=== PATIENT | male | born 1945 | race Caucasian/White ===

== ENCOUNTER → 2016-04-17 | Outpatient (CLI) | payer MEDICARE, BC, OTHER ==
--- NOTE | 2016-04-17 15:01 | REP ---
NUCLEAR GASTRIC EMPTYING SCAN: Following the oral administration of 1.04 mCi technetium 99m sulfur colloid in two scrambled and 6 ounces of water, multiple images of the upper abdomen are performed for 90 minutes in the anterior and posterior projections. Gastric activity is measured, and the gastric emptying time is calculated. At the end of 90 minutes, 100% of the ingested activity has emptied from the stomach. The t1/2 is 35 minutes, which is normal. IMPRESSION: Normal gastric emptying. Signed by Mehul Bingham MD 04/18/2016 09:24 A
== END ==
LOC: M RAD 12:34
PROVIDERS: ATTEND Internal Medicine Gastroenterology
DX: K21.9 Gastro-esophageal reflux disease without esophagitis (principal); R14.0 Abdominal distension (gaseous)
CPT/HCPCS: 78264; A9541

== ENCOUNTER → 2016-07-25 | Outpatient (REF) | payer MEDICARE, BC | LOC: M SFHCPLAZ 11:31 | PROVIDERS: ATTEND Dermatology | DX: L57.0 Actinic keratosis (principal) ==

== ENCOUNTER → 2016-08-23 | Outpatient (REF) | payer MEDICARE, BC, OTHER ==
[2016-08-23 16:31] LABS: ALBUMIN/GLOBULIN RATIO 1.29 (1.00-1.93); ALKALINE PHOSPHATASE 48 U/L (45-117); ALT/SGPT 62 U/L (12-78); ANION GAP 8 MEQ/L (8-16); AST/SGOT 35 U/L (15-37); BILIRUBIN,TOTAL 0.4 MG/DL (0.2-1.0); BLOOD UREA NITROGEN 14 MG/DL (7-18); CALCIUM LEVEL 9.1 MG/DL (8.8-10.2); CARBON DIOXIDE LEVEL 29 MEQ/L (21-32); CHLORIDE LEVEL 100 MEQ/L (98-107); CHOLESTEROL LEVEL 132 MG/DL (<200); GLOMERULAR FILTRATION RATE > 60.0 (>42); GLUCOSE, FASTING 132 MG/DL (83-110); MAGNESIUM LEVEL 2.2 MG/DL (1.8-2.4); POTASSIUM SERUM 4.1 MEQ/L (3.5-5.1); SODIUM LEVEL 137 MEQ/L (136-145); TOTAL PROTEIN 7.1 GM/DL (6.4-8.2); TRIGLYCERIDES LEVEL 192 MG/DL (<150); URIC ACID 7.7 MG/DL (3.5-7.2)
[2016-08-23 16:50] LABS: MEAN CORPUSCULAR HEMOGLOBIN 33.4 pg (27.0-33.0); MEAN CORPUSCULAR HGB CONC 34.4 g/dl (32.0-36.5); RED CELL DISTRIBUTION WIDTH 12.8 % (11.5-14.5); WHITE BLOOD COUNT 5.8 K/mm3 (4.0-10.0)
== END ==
LOC: M SFHCPLAZ 13:26
PROVIDERS: ATTEND Internal Medicine
DX: M19.90 Unspecified osteoarthritis, unspecified site (principal); I10 Essential (primary) hypertension; E11.3291 Type 2 diabetes mellitus with mild nonproliferative diabetic retinopathy without macular edema, right eye; E78.00 Pure hypercholesterolemia, unspecified

== ENCOUNTER → 2016-09-11 | Outpatient (CLI) | payer MEDICARE, BC, OTHER ==
--- NOTE | 2016-09-11 10:54 | REP ---
REASON: Screening for abdominal aortic aneurysm. The technologist has made note in the technical worksheet that the exam is limited due to the patient's body habitus and intestinal gas pattern. The abdominal aorta could not be assessed at the level of the renal arteries due to aforementioned. Multiple sonographic images of the abdominal aorta were obtained from the level of the celiac axis to the aortoiliac bifurcation in the longitudinal and transverse scan plans. The maximal AP dimension of the visualized abdominal aorta in the longitudinal plane is 2.2 cm. There is no aneurysmal dilatation. There is no evidence of common iliac arterial ectasia. IMPRESSION: Exam findings and limitations as described above. There is no ultrasonographic evidence of an abdominal aortic aneurysm. Signed by Richard Saenz DO 09/11/2016 11:01 A
== END ==
LOC: M WHC 08:06
PROVIDERS: ATTEND Internal Medicine
DX: Z13.6 Encounter for screening for cardiovascular disorders (principal)

== ENCOUNTER → 2016-10-04 | Outpatient (CLI) | payer MEDICARE, BC, OTHER ==
--- NOTE | 2016-10-06 15:00 | DEXA ---
AP SPINE L1 - L4 1.643 3.6 3.9 LT FEMUR TOTAL 1.224 1.7 1.7 RT FEMUR TOTAL 1.252 1.9 1.8 TOTAL BODY TOTAL OTHER DUAL FEMUR FRAX* ASSESSMENT Risk factors: Not performed. 10 year probability of fracture Major osteoporotic fracture % Hip fracture % COMMENTS: Normal bone densitometry of the spine. Normal bone densitometry of the left hip. Normal bone densitometry of the right hip. There is degenerative change in the spine which may artificially elevate the BMD. FOLLOW-UP: Recommendation for the next bone density exam: 5 years. RICHD
== END ==
LOC: M WHC 07:52
PROVIDERS: ATTEND Internal Medicine
DX: Z13.820 Encounter for screening for osteoporosis (principal); Z79.899 Other long term (current) drug therapy; K21.9 Gastro-esophageal reflux disease without esophagitis; M50.30 Other cervical disc degeneration, unspecified cervical region; Z72.0 Tobacco use; E53.8 Deficiency of other specified B group vitamins; M54.41 Lumbago with sciatica, right side; Z51.81 Encounter for therapeutic drug level monitoring

== ENCOUNTER → 2017-02-28 | Outpatient (REF) | payer MEDICARE, BC, OTHER ==
[2017-02-28 11:16] LABS: MEAN CORPUSCULAR HEMOGLOBIN 32.5 pg (27.0-33.0); MEAN CORPUSCULAR HGB CONC 33.9 g/dl (32.0-36.5); PLATELET COUNT, AUTOMATED 264 10^3/uL (150-450); RED CELL DISTRIBUTION WIDTH 12.8 % (11.5-14.5); WHITE BLOOD COUNT 4.8 10^3/uL (4.0-10.0)
[2017-02-28 12:04] LABS: ANION GAP 9 MEQ/L (8-16); BLOOD UREA NITROGEN 16 MG/DL (7-18); CALCIUM LEVEL 8.9 MG/DL (8.8-10.2); CARBON DIOXIDE LEVEL 30 MEQ/L (21-32); CHLORIDE LEVEL 101 MEQ/L (98-107); GLOMERULAR FILTRATION RATE > 60.0 (>42); GLUCOSE, FASTING 108 MG/DL (83-110); POTASSIUM SERUM 3.9 MEQ/L (3.5-5.1); SODIUM LEVEL 140 MEQ/L (136-145)
[2017-02-28 12:05] LABS: ALBUMIN 3.8 GM/DL (3.2-5.2); ALBUMIN/GLOBULIN RATIO 1.23 (1.00-1.93); ALKALINE PHOSPHATASE 46 U/L (45-117); ALT/SGPT 44 U/L (12-78); AST/SGOT 32 U/L (7-37); BILIRUBIN,TOTAL 0.5 MG/DL (0.2-1.0); MAGNESIUM LEVEL 2.1 MG/DL (1.8-2.4); TOTAL PROTEIN 6.9 GM/DL (6.4-8.2)
[2017-02-28 12:32] LABS: ESTIMATED AVERAGE GLUCOSE 157 MG/DL (60-110)
== END ==
LOC: M SFHCPLAZ 07:36
DX: Z79.4 Long term (current) use of insulin (principal); E11.3291 Type 2 diabetes mellitus with mild nonproliferative diabetic retinopathy without macular edema, right eye; I10 Essential (primary) hypertension
CPT/HCPCS: 83735

== ENCOUNTER → 2017-07-24 | Outpatient (REF) | payer MEDICARE, BC, OTHER ==
[2017-07-24 14:24] LABS: C REACTIVE PROTEIN QUANTITATIV < 0.30 MG/DL (0.00-0.30); ERYTHROCYTE SEDIMENTATION RATE 3 mm/hr (0-20)
== END ==
LOC: M SFHCPLAZ 12:25
DX: M25.511 Pain in right shoulder (principal); M25.512 Pain in left shoulder
CPT/HCPCS: 86140

== ENCOUNTER → 2017-08-02 | Outpatient (REF) | payer MEDICARE, BC, OTHER ==
[2017-08-02 13:30] LABS: ESTIMATED AVERAGE GLUCOSE 146 MG/DL (60-110); HEMOGLOBIN A1c 6.7 %
[2017-08-02 13:31] LABS: ALBUMIN 3.9 GM/DL (3.2-5.2); ALBUMIN/GLOBULIN RATIO 1.26 (1.00-1.93); ALKALINE PHOSPHATASE 42 U/L (45-117); ALT/SGPT 50 U/L (12-78); ANION GAP 9 MEQ/L (8-16); AST/SGOT 36 U/L (7-37); BILIRUBIN,TOTAL 0.6 MG/DL (0.2-1.0); BLOOD UREA NITROGEN 11 MG/DL (7-18); CALCIUM LEVEL 8.8 MG/DL (8.8-10.2); CARBON DIOXIDE LEVEL 26 MEQ/L (21-32); CHLORIDE LEVEL 103 MEQ/L (98-107); CHOLESTEROL LEVEL 134 MG/DL (<200); CREATININE FOR GFR 0.81 MG/DL (0.70-1.30); GLOMERULAR FILTRATION RATE > 60.0 (>42); GLUCOSE, FASTING 161 MG/DL (70-100); HDL CHOLESTEROL 29 MG/DL (>40); LDL CHOLESTEROL 60.6 MG/DL (<100); NON-HDL-C 105 MG/DL; POTASSIUM SERUM 4.1 MEQ/L (3.5-5.1); SODIUM LEVEL 138 MEQ/L (136-145); TRIGLYCERIDES LEVEL 222 MG/DL (<150)
[2017-08-02 14:32] LABS: CREATININE, URINE 50.1 MG/DL; MALB URINE SIEMENS 6.3 MG/L; MAU/CREAT RATIO 12.5 MCG/MG (0.0-30.0)
== END ==
LOC: M SFHCPLAZ 07:58
DX: E11.3291 Type 2 diabetes mellitus with mild nonproliferative diabetic retinopathy without macular edema, right eye (principal); E78.00 Pure hypercholesterolemia, unspecified; E55.9 Vitamin D deficiency, unspecified; Z79.899 Other long term (current) drug therapy
CPT/HCPCS: 80053

== ENCOUNTER → 2017-08-07 | Outpatient (REF) | payer MEDICARE, BC, OTHER ==
[2017-08-07 13:55] LABS: TESTOSTERONE 431 NG/DL (241-827)
== END ==
LOC: M SFHCPLAZ 10:20
DX: R53.82 Chronic fatigue, unspecified (principal)
CPT/HCPCS: 84403

== ENCOUNTER → 2017-12-18 | Outpatient (REF) | payer MEDICARE, BC, OTHER ==
[2017-12-18 16:05] LABS: PSA SCREENING 1.79 NG/ML (< 4.0)
== END ==
LOC: M SFHCPLAZ 14:21
DX: Z12.5 Encounter for screening for malignant neoplasm of prostate (principal); Z23 Encounter for immunization
CPT/HCPCS: G0103

== ENCOUNTER → 2018-04-01 | Outpatient (CLI) | payer MEDICARE, BC, OTHER ==
--- NOTE | 2018-04-11 06:23 | REP ---
Clinical: Postprandial epigastric pain. Technique: Real time root scale and color Doppler evaluation of the celiac axis and superior mesenteric artery pre and post meal challenge. Findings: Doppler interrogation at fasting prior to meal challenge demonstrates normal triphasic arterial wave patterns and velocities of the celiac axis and superior mesenteric artery (SMA). Further evaluation of the superior mesenteric artery and multiple intervals after challenge again demonstrates normal biphasic arterial wave patterns and velocities. There is no evidence for stenosis or obvious abnormality by radiographic sonographic evaluation. CELIAC AXIS SMA (prox) SMA (mid) BASE LINE psv 127.3 cm/sec 174 cm/sec 192.5 cm/sec edv 31.0 cm/sec 22.6 cm/sec 25.5 cm/sec POST CHALLENGE 10 minutes PSV 237.9 cm/sec 326.2 cm/sec EDV 39.9 cm/sec 44.0 cm/sec 20 minutes PSV 250.9 cm/sec 430.1 cm/sec EDV 44.0 cm/sec 71.3 cm/sec 30 minutes PSV 230.8 cm/sec 321.6 cm/sec EDV 36.2 cm/sec 39.6 cm/sec 40 minutes PSV 212.0 cm/sec 293.3 cm/sec EDV 41.0 cm/sec 67.9 cm/sec Impression: Normal examination. No evidence for postprandial SMA stenosis. Electronically Signed by Drake Mills MD 04/11/2018 06:14 A
== END ==
LOC: M RAD 07:20
PROVIDERS: ATTEND Internal Medicine Gastroenterology
DX: R10.13 Epigastric pain (principal); K27.9 Peptic ulcer, site unspecified, unspecified as acute or chronic, without hemorrhage or perforation

== ENCOUNTER → 2018-04-23 | Outpatient (REF) | payer MEDICARE, BC, OTHER ==
[2018-04-23 12:27] LABS: BASO # 0.1 10^3/uL (0.0-0.2); BASO % 1.1 % (0.0-1.0); EOS # 0.2 10^3/uL (0.0-0.50); EOS % 3.8 % (0.0-3.0); HEMATOCRIT 41.7 % (42.0-52.0); HEMOGLOBIN 14.2 g/dl (13.5-17.5); LYMPH # 1.8 10^3/uL (1.5-4.5); LYMPH % 33.3 % (24.0-44.0); MEAN CORPUSCULAR HEMOGLOBIN 32.9 pg (27.0-33.0); MEAN CORPUSCULAR HGB CONC 34.1 g/dl (32.0-36.5); MEAN CORPUSCULAR VOLUME 96.8 fl (80.0-96.0); MONO # 0.6 10^3/uL (0.0-0.8); MONO % 11.2 % (0.0-5.0); NEUTROPHILS # 2.7 10^3/uL (1.8-7.7); NEUTROPHILS % 50.1 % (36.0-66.0); PLATELET COUNT, AUTOMATED 312 10^3/uL (150-450); RED BLOOD COUNT 4.31 10^6/uL (4.30-6.10); WHITE BLOOD COUNT 5.5 10^3/uL (4.0-10.0)
[2018-04-23 12:41] LABS: ALBUMIN 4.3 GM/DL (3.2-5.2); ALT/SGPT 45 U/L (12-78); BILIRUBIN,TOTAL 0.5 MG/DL (0.2-1.0); BLOOD UREA NITROGEN 8 MG/DL (7-18); C REACTIVE PROTEIN QUANTITATIV < 0.30 MG/DL (0.00-0.30); CALCIUM LEVEL 9.1 MG/DL (8.8-10.2); CARBON DIOXIDE LEVEL 26 MEQ/L (21-32); CHLORIDE LEVEL 97 MEQ/L (98-107); CHOLESTEROL LEVEL 108 MG/DL (<200); CREATININE FOR GFR 0.72 MG/DL (0.70-1.30); GLOMERULAR FILTRATION RATE > 60.0 (>42); GLUCOSE, FASTING 152 MG/DL (70-100); HDL CHOLESTEROL 25 MG/DL (>40); LDL CHOLESTEROL 28 MG/DL (<100); MAGNESIUM LEVEL 1.9 MG/DL (1.8-2.4); NON-HDL-C 83 MG/DL; SODIUM LEVEL 134 MEQ/L (136-145); TOTAL PROTEIN 7.2 GM/DL (6.4-8.2); TRIGLYCERIDES LEVEL 276 MG/DL (<150)
[2018-04-23 12:46] LABS: CREATININE, URINE 52.3 MG/DL; MALB URINE SIEMENS 7.5 MG/L; MAU/CREAT RATIO 14.3 MCG/MG (0.0-30.0)
[2018-04-23 13:07] LABS: HEMOGLOBIN A1c 7.8 %
[2018-04-23 13:25] LABS: ERYTHROCYTE SEDIMENTATION RATE 5 mm/hr (0-20)
== END ==
LOC: M SFHCPLAZ 08:23
PROVIDERS: ATTEND Internal Medicine
DX: E11.69 Type 2 diabetes mellitus with other specified complication (principal); I10 Essential (primary) hypertension; E78.00 Pure hypercholesterolemia, unspecified; M19.90 Unspecified osteoarthritis, unspecified site; Z79.4 Long term (current) use of insulin
CPT/HCPCS: 36415; 80053; 80061; 82043; 83036; 83735; 85025; 85652; 86140; G0463

== ENCOUNTER → 2018-05-22 | Outpatient (REF) | payer MEDICARE, BC, OTHER ==
[2018-05-22 12:53] LABS: APPEARANCE, URINE CLEAR (CLEAR); BACTERIA, URINE AUTO NEGATIVE (NEGATIVE); BILIRUBIN, URINE AUTO NEGATIVE (NEGATIVE); BLOOD, URINE BLOOD NEGATIVE (NEGATIVE); COLOR, URINE YELLOW (YELLOW); GLUCOSE, URINE (UA) AUTO 1+ mg/dL (NEGATIVE); KETONE, URINE AUTO NEGATIVE (NEGATIVE); LEUKOCYTE ESTERASE, URINE AUTO NEGATIVE (NEGATIVE); MUCUS, URINE SMALL (NEGATIVE); NITRITE, URINE AUTO NEGATIVE (NEGATIVE); PROTEIN, URINE AUTO NEGATIVE (NEGATIVE); RBC, URINE AUTO 1 /HPF (0-3); SPECIFIC GRAVITY URINE AUTO 1.017 (1.002-1.035); SQUAMOUS EPITHELIAL CELL UR AU 0 /HPF (0-6); UROBILINOGEN, URINE AUTO 0.2 mg/dL (0.0-2.0); WBC, URINE AUTO 1 /HPF (0-3)
== END ==
LOC: M SFHCPLAZ 12:08
PROVIDERS: ATTEND Internal Medicine
DX: R30.0 Dysuria (principal)
CPT/HCPCS: 81001; 87086; G0463

== ENCOUNTER → 2018-09-03 | Outpatient (REF) | payer MEDICARE, BC, OTHER ==
[2018-09-03 12:15] LABS: ALT/SGPT 59 U/L (12-78); BILIRUBIN,TOTAL 0.5 MG/DL (0.2-1.0); BLOOD UREA NITROGEN 9 MG/DL (7-18); CALCIUM LEVEL 8.3 MG/DL (8.8-10.2); CARBON DIOXIDE LEVEL 27 MEQ/L (21-32); CHLORIDE LEVEL 97 MEQ/L (98-107); CHOLESTEROL LEVEL 99 MG/DL (<200); CHOLESTEROL RISK RATIO 3.413 (<5); CREATININE FOR GFR 0.82 MG/DL (0.70-1.30); GLOMERULAR FILTRATION RATE > 60.0 (>42); GLUCOSE, FASTING 194 MG/DL (70-100); HDL CHOLESTEROL 29 MG/DL (>40); LDL CHOLESTEROL 32 MG/DL (<100); MAGNESIUM LEVEL 2.2 MG/DL (1.8-2.4); NON-HDL-C 70 MG/DL; POTASSIUM SERUM 3.9 MEQ/L (3.5-5.1); SODIUM LEVEL 132 MEQ/L (136-145); TOTAL 25(OH) VITAMIN D 30.2 NG/ML (30.0-100.0); TOTAL PROTEIN 7.1 GM/DL (6.4-8.2); TRIGLYCERIDES LEVEL 189 MG/DL (<150)
[2018-09-03 13:31] LABS: HEMOGLOBIN A1c 7.2 %
== END ==
LOC: M LABDRAW1 08:11
PROVIDERS: ATTEND Internal Medicine
DX: I10 Essential (primary) hypertension (principal); E11.69 Type 2 diabetes mellitus with other specified complication; E78.00 Pure hypercholesterolemia, unspecified; E55.9 Vitamin D deficiency, unspecified

== ENCOUNTER → 2018-10-14 | Outpatient (REF) | payer MEDICARE, BC, OTHER ==
[2018-10-14 16:24] LABS: BLOOD UREA NITROGEN 10 MG/DL (7-18); CALCIUM LEVEL 8.4 MG/DL (8.8-10.2); CARBON DIOXIDE LEVEL 28 MEQ/L (21-32); CHLORIDE LEVEL 100 MEQ/L (98-107); CREATININE FOR GFR 1.05 MG/DL (0.70-1.30); GLOMERULAR FILTRATION RATE > 60.0 (>42); GLUCOSE, FASTING 138 MG/DL (70-100); POTASSIUM SERUM 3.8 MEQ/L (3.5-5.1); SODIUM LEVEL 136 MEQ/L (136-145)
== END ==
LOC: M LABDRAW1 13:33
PROVIDERS: ATTEND Internal Medicine
DX: I10 Essential (primary) hypertension (principal)

== ENCOUNTER → 2019-04-17 | Outpatient (REF) | payer MEDICARE, BC, OTHER | LOC: M LAB REF 13:08 | PROVIDERS: ATTEND Internal Medicine | DX: R19.7 Diarrhea, unspecified (principal) ==

== ENCOUNTER → 2019-05-14 | Outpatient (REF) | payer MEDICARE, BC, OTHER ==
[2019-05-14 10:31] LABS: BLOOD UREA NITROGEN 14 MG/DL (7-18); CALCIUM LEVEL 8.6 MG/DL (8.8-10.2); CARBON DIOXIDE LEVEL 27 MEQ/L (21-32); CHLORIDE LEVEL 98 MEQ/L (98-107); CREATININE FOR GFR 1.01 MG/DL (0.70-1.30); GLOMERULAR FILTRATION RATE > 60.0 (>42); GLUCOSE, FASTING 249 MG/DL (70-100); POTASSIUM SERUM 3.9 MEQ/L (3.5-5.1); SODIUM LEVEL 132 MEQ/L (136-145)
== END ==
LOC: M LABDRAW1 08:25
PROVIDERS: ATTEND Internal Medicine Gastroenterology
DX: R10.13 Epigastric pain (principal); K59.1 Functional diarrhea

== ENCOUNTER → 2019-05-20 | Outpatient (CLI) | payer MEDICARE, BC, OTHER ==
[~2019-05-20] MED LIST: GASTROGRAFIN SOLUTION 30ML (Q9963) As Ordered ONE; ISOVUE-370 76% 100ML VIAL (Q9967) As Ordered ONE
--- NOTE | 2019-05-20 15:52 | REP ---
REASON: Abdominal pain. COMPARISON: None. CONTRAST: 100 mL Isovue 370. The lung bases are clear. Precontrast enhanced portion of the examination shows bilateral renovascular calcifications. There are no obstructing nephroliths. There are no choleliths. There is calcific atherosclerotic change seen in the abdominal aorta. The contrast enhanced portion of the examination shows the liver, spleen, gallbladder, pancreas, adrenal glands, and kidneys to be within normal limits. The abdominal aorta and paraaortic regions are within normal limits. The bowel loops and their mesenteries are within normal limits. There is no intra-abdominal or retroperitoneal mass or adenopathy. There is no free fluid or free air. CT PELVIS: The bowel loops and their mesenteries are within normal limits. There is no mass or adenopathy. There is no free fluid or free air. Bone window technique throughout the examination shows chronic spinal and sacroiliac joint degenerative changes. IMPRESSION: There is no evidence of acute intra-abdominal or intrapelvic disease. Findings as described above. Electronically Signed by Richard Saenz DO 05/20/2019 04:34 P
== END ==
LOC: M RAD 12:57
PROVIDERS: ATTEND Internal Medicine Gastroenterology
DX: R10.13 Epigastric pain (principal); K59.1 Functional diarrhea
CPT/HCPCS: 74178; Q9963; Q9967

== ENCOUNTER → 2019-11-12 | Outpatient (CLI) | payer MEDICARE, BC, OTHER ==
[2019-11-12 14:06] LABS: BASO # 0.1 10^3/uL (0.0-0.2); BASO % 0.9 % (0.0-1.0); EOS # 0.2 10^3/uL (0.0-0.5); EOS % 3.7 % (0.0-3.0); HEMATOCRIT 38.6 % (42.0-52.0); HEMOGLOBIN 12.6 g/dl (13.5-17.5); LYMPH # 1.5 10^3/uL (1.5-5.0); LYMPH % 28.1 % (24.0-44.0); MEAN CORPUSCULAR HEMOGLOBIN 32.1 pg (27.0-33.0); MEAN CORPUSCULAR HGB CONC 32.6 g/dl (32.0-36.5); MEAN CORPUSCULAR VOLUME 98.2 fl (80.0-96.0); MONO # 0.6 10^3/uL (0.0-0.8); MONO % 11.2 % (0.0-5.0); NEUTROPHILS % 55.7 % (36.0-66.0); PLATELET COUNT, AUTOMATED 314 10^3/uL (150-450); RED BLOOD COUNT 3.93 10^6/uL (4.30-6.10); WHITE BLOOD COUNT 5.5 10^3/uL (4.0-10.0)
[2019-11-12 14:30] LABS: HEMOGLOBIN A1c 6.2 %
[2019-11-12 14:46] LABS: ALBUMIN 4.1 GM/DL (3.2-5.2); ALT/SGPT 46 U/L (12-78); BILIRUBIN,TOTAL 0.4 MG/DL (0.2-1.0); BLOOD UREA NITROGEN 9 MG/DL (7-18); CALCIUM LEVEL 8.9 MG/DL (8.8-10.2); CARBON DIOXIDE LEVEL 29 MEQ/L (21-32); CHLORIDE LEVEL 95 MEQ/L (98-107); CHOLESTEROL LEVEL 97 MG/DL (<200); CHOLESTEROL RISK RATIO 3.233 (<5); CREATININE FOR GFR 0.75 MG/DL (0.70-1.30); GLOMERULAR FILTRATION RATE > 60.0 (>42); GLUCOSE, FASTING 55 MG/DL (70-100); HDL CHOLESTEROL 30 MG/DL (>40); LDL CHOLESTEROL 28 MG/DL (<100); NON-HDL-C 67 MG/DL; POTASSIUM SERUM 4.3 MEQ/L (3.5-5.1); SODIUM LEVEL 128 MEQ/L (136-145); TOTAL PROTEIN 7.3 GM/DL (6.4-8.2); TRIGLYCERIDES LEVEL 196 MG/DL (<150)
[2019-11-12 15:02] LABS: ERYTHROCYTE SEDIMENTATION RATE 7 mm/hr (0-20)
[2019-11-12 20:14] LABS: CREATININE, URINE 71.7 MG/DL; MALB URINE SIEMENS 5.2 MG/L; MAU/CREAT RATIO 7.2 MCG/MG (0.0-30.0)
== END ==
LOC: M PLALAB 12:33
PROVIDERS: ATTEND Internal Medicine
DX: E11.69 Type 2 diabetes mellitus with other specified complication (principal); I10 Essential (primary) hypertension; E78.00 Pure hypercholesterolemia, unspecified; M19.90 Unspecified osteoarthritis, unspecified site

== ENCOUNTER → 2019-12-15 | Outpatient (CLI) | payer MEDICARE, BC, OTHER ==
[~2019-12-15] MED LIST changes: -GASTROGRAFIN SOLUTION 30ML (Q9963) As Ordered ONE; -ISOVUE-370 76% 100ML VIAL (Q9967) As Ordered ONE; +PROHANCE 279.3MG/ML 15ML VIAL As Ordered ONE; +PROHANCE 279.3MG/ML 5ML VIAL As Ordered ONE
--- NOTE | 2019-12-15 14:39 | REPVR ---
PROCEDURE INFORMATION: Exam: MR Head Without and With Contrast; Internal Auditory Canals Exam date and time: 12/15/2019 12:51 PM Age: 74 years old Clinical indication: Other: Hearing loss; Patient HX: Limited exam, best PT can do, repeatedly asked to remain still. ; Additional info: H90.3-sensorineural hearing loss, bilateral TECHNIQUE: Imaging protocol: MR of the head without and with intravenous contrast. Exam focused on the internal auditory canals. 3D rendering (Not supervised by radiologist): MIP and/or 3D reconstructed images were created by the technologist. Contrast material: PROHANCE; Contrast volume: 16 ml; Contrast route: INTRAVENOUS (IV); COMPARISON: SR - CT Head without contrast 12/23/2015 5:56:50 PM FINDINGS: Limitations: Motion artifact does severely limit the sensitivity of this examination. Brain: There is no abnormal diffusion weighted signal intensity to suggest an acute ischemic event. There is moderate diffuse cerebral atrophy present. Ventricles: No ventriculomegaly. Mastoid air cells: Unremarkable. No effusions. Internal auditory canals: The left internal auditory canal is adequately seen on 1.5 mm heavy T2 weighted axial image 701:35 through the posterior fossa. The right canal is poorly seen on axial image 31 and the possibility of bony overgrowth could be considered but is not obvious on a [address] study performed 4 years ago. There is no obvious nodular mass in the adjacent cistern. Other vasculature: Normal vascular flow voids are present. Bones/joints: See "Internal auditory canals" finding. Other findings: There are no regions of abnormal enhancement. IMPRESSION: 1. Motion artifact does severely limit the sensitivity of this examination. 2. There are no regions of abnormal enhancement. 3. The left internal auditory canal is adequately seen on 1.5 mm heavy T2 weighted axial image 701:35 through the posterior fossa. The right canal is poorly seen on axial image 31 and the possibility of bony overgrowth could be considered but is not obvious on a [address] study performed 4 years ago. There is no obvious nodular mass in the adjacent cistern. Electronically signed by: Mitch Ware On 12/15/2019 14:39:11 PM
== END ==
LOC: M RAD 12:48
PROVIDERS: ATTEND Otolaryngology
DX: H90.3 Sensorineural hearing loss, bilateral (principal)
CPT/HCPCS: 70553; A9576

== ENCOUNTER → 2020-02-06 | Outpatient (REF) | payer MEDICARE, BC, OTHER ==
[2020-02-06 11:16] LABS: BASO # 0.1 10^3/uL (0.0-0.2); BASO % 1.2 % (0.0-1.0); EOS # 0.2 10^3/uL (0.0-0.5); EOS % 5.5 % (0.0-3.0); HEMATOCRIT 36.7 % (42.0-52.0); HEMOGLOBIN 11.4 g/dl (13.5-17.5); LYMPH # 1.3 10^3/uL (1.5-5.0); MEAN CORPUSCULAR HEMOGLOBIN 29.6 pg (27.0-33.0); MEAN CORPUSCULAR HGB CONC 31.1 g/dl (32.0-36.5); MEAN CORPUSCULAR VOLUME 95.3 fl (80.0-96.0); MONO # 0.6 10^3/uL (0.0-0.8); MONO % 12.7 % (0.0-5.0); NEUTROPHILS # 2.2 10^3/uL (1.5-8.5); NEUTROPHILS % 50.1 % (36.0-66.0); PLATELET COUNT, AUTOMATED 294 10^3/uL (150-450); RED BLOOD COUNT 3.85 10^6/uL (4.30-6.10); WHITE BLOOD COUNT 4.3 10^3/uL (4.0-10.0)
[2020-02-06 11:56] LABS: ALBUMIN 3.9 GM/DL (3.2-5.2); ALT/SGPT 50 U/L (12-78); BILIRUBIN,TOTAL 0.5 MG/DL (0.2-1.0); BLOOD UREA NITROGEN 13 MG/DL (7-18); CALCIUM LEVEL 9.1 MG/DL (8.8-10.2); CARBON DIOXIDE LEVEL 28 MEQ/L (21-32); CHLORIDE LEVEL 96 MEQ/L (98-107); CREATININE FOR GFR 0.93 MG/DL (0.70-1.30); GLOMERULAR FILTRATION RATE > 60.0 (>42); GLUCOSE, FASTING 240 MG/DL (70-100); MAGNESIUM LEVEL 1.8 MG/DL (1.8-2.4); POTASSIUM SERUM 4.9 MEQ/L (3.5-5.1); SODIUM LEVEL 130 MEQ/L (136-145); TOTAL PROTEIN 7.2 GM/DL (6.4-8.2)
[2020-02-06 12:17] LABS: HEMOGLOBIN A1c 6.5 %
[2020-02-07 18:06] LABS: TESTOSTERONE FREE (DIRECT) 5.8 pg/mL (6.6-18.1)
== END ==
LOC: M PLALAB 09:01
PROVIDERS: ATTEND Internal Medicine
DX: R53.82 Chronic fatigue, unspecified (principal); I10 Essential (primary) hypertension; E11.69 Type 2 diabetes mellitus with other specified complication; N52.9 Male erectile dysfunction, unspecified

== ENCOUNTER → 2020-02-10 | Outpatient (CLI) | payer SELFPAY | LOC: M LABSMTC 15:29 | PROVIDERS: ATTEND Pediatrics | DX: Z11.59 Encounter for screening for other viral diseases (principal) ==

== ENCOUNTER 2020-03-23 11:39 | Emergency (ER) | payer MEDICARE, BC, OTHER ==
--- OUTSIDE RECORDS SUMMARY | 2020-03-23 11:55 | CCD ---
Author Author [email or web address] [facility] Organization [email or web address] [facility] Address Unknown Phone Unavailable Care Team Providers Care Club Room Attendant Name Role Phone Bernard Cam Unavailable PROBLEMS Type Condition ICD9-CM Code [id number] Code Onset Dates Condition S tatus SNOMED Code Notes Problem Lesion of lung R91.1 Active 574170957 3.6mm l radha nodule seen on CT in 04/2012. He sees pulmonology, had normal PFT's in 05/2012. He had had another CT of chest 05/2013 which was stable and there were no recommendations for a repeat study. Problem Coronary artery disease I25.10 Active [id number] He had three-vessel disease diagnosed after an abnormal stress test for dyspnea on exertion, back in May 2011. Left ventricular ejection fraction was 62% in February 2018 at his radionuclide stress test, 55% at cardiac catheterization 06/2012 (patent circumflex stents, occluded RCA, 60% LAD disease). The patient has no angina at present. He is currently on ARB, beta saeed, Plavix, aspirin and statin therapy. His blanket winder helper has recommended lifelong Plavix. Problem Anxiety disorder F41.9 Active [id number] Has p eriodic anxiety possibly related to [place] experience. [facility] the [facility] and I believe he has used prn alprazolam in the past. It is not on his list today. In April 2011 I tried Cymbalta but I do not believe he continued that. He restarted as of 08/2013 but did not maintain that therapy. He tried CBD oil but it was of no benefit. He was started on citalopram and was offered Ritalin as of mid August 2018; he is on citalopram alone and is seeing a psychiatrist. I increased his citalopram to 20 mg daily in September 2018. Problem Gastroesophageal reflux disease K21.9 Active [id number] He has been on Dexilant since about January 2019. He was previously on Protonix (selena) in the past, taken daily, and there was no benefit to twice daily therapy. Patient had ongoing discomfort in that he has ongoing postprandial discomfort only partially relieved with Gaviscon. Carafate was of no benefit. He had his most recent endoscopy in April 2018 which showed some reactive gastropathy. He had a normal gastric emptying study in 2016. His lobbyist switched him from Protonix to Zegerid in early 2018 and this was of no benefit. A Doppler ultrasound of his mesenteric arteries in April 2018 was not revealing for significant stenosis. Problem Lumbar spinal stenosis M48.06 Active 26025352 He apparently had a confirmatory MRI in about 2013 at [facility]. He has ongoing issues. He no longer receives physical therapy. He is on gabapentin 600/600/1200 mg on a 3 times a day schedule. Problem History of adenomatous polyp of colon Z86.010 Ac tive [id number] He had an adenomatous polyp in March 2014 and probably needs a follow-up in 2019. Problem Neuropathic arthritis M14.60 Active 31139719 H e has neuropathic symptoms of his hands and feet. This may relate to his diabetes or to his arthritic syndrome. He apparently has tried Lyrica in the past, and nortriptyline caused urinary retention. We did try Lamictal in Summer 2016 but he did not maintain that therapy. He is taking gabapentin 600/600/1200 mg on a 3 times a day schedule. He tried CBD oil with no benefit. Tramadol was initiated as of April 2018 but it was not of benefit. It appears that citalopram, started in August 2018, may have palliated some of his discomforts. Problem Memory deficit R41.3 Active [id number] He has been evaluated for memory loss by a neurologist in 2013. His serologic evaluation was negative. I am not an advocate of Namenda or Aricept. He is apparently taking vitamin B12 supplementation despite a normal level in Fall 2013. 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 Problem Hypercholesterolemia E78.00 Active [id number] On Crestor instead of Lipitor as of 2017 (concerns about myalgias on Lipitor resulted in that switch but it made no difference) and Lovaza therapy . Lipids are controlled with medications as of November 2019. Problem Chronic fatigue R53.82 Active 17057115 TSH and testosterone level were normal in August 2017 and again in February 2020, although his free testosterone level was a bit low. We will try supplementation as of February 2020. Problem Type 2 diabetes mellitus with other specified complication E11.69 Active 61225877 On metformin, Lantus 40 unit s daily, sliding scale insulin therapy which is usually dosed at 6-8 units 3 times a day. Amaryl, Victoza (substituted for Byetta in August 2009) stopped in late 2010. Last HgbA1c was 6.5% in February 2020, 6.2% in November 2019, [facility], 7.2% in September 2018, 7.8% in April 2018, 7[facility]. His urine microalbumin was negative in November 2019; he is on an ARB nevertheless. There is some stable diabetic retinopathy bilaterally. His last eye exam that I have record of was in December 2017. Last LE sensory examination was in August 2017 and he had electrodiagnostics in early 2013. I attempted to add Jardiance to his regimen in hopes to facilitate some weight loss and to reduce his insulin requirements but his insurance company has denied that apparently. He has a diabetic neuropathy. Problem Repetitive rocking movements F98.4 Active 301 77128 I've asked for neurology consultation. Problem Inflammatory arthritis M19.90 Active 3517585 H dimitris has an inflammatory arthritis primarily affecting his right hand greater than left, and he also has knee and low back pain as well as various other arthralgias. He has had rheumatologic consultations dating back to 2011 through 2013 and was tried on Plaquenil, Arava, methotrexate but did not maintain these medications. He is diabetic and prednisone could not be used long-term. He tried meloxicam no nsteroidal anti-inflammatory drug therapy in February 2016, despite his history of GI issues, because he is protected with his PPI therapy; it did not provide benefit. Topical Voltarin gel therapy has not been terribly beneficial. He was tried on Plaquenil again in about 2015 or 2016. His serological markers are negative and I did offer him Humira therapy again in February 2016 but he decided not to complicate his medical regimen. We also tried Relafen as of August 2016 and he did not find that to be of benefit. Topical Aspercreme with lidocaine and/ or Voltaren gel for his hand and knee arthritis were recommended in the past without benefit. Tramadol was initiated as of April 2018 but he found no benefit. Inflammatory markers were negative as of April 2018 and again in November 2019. He is on gabapentin. Problem Hypertension I10 Active 58155050 On losarta n, chlorthalidone, spironolactone 3 times a week, and metoprolol. Has no endorgan complications. Blood pressure is optimally controlled by his report of home readings. He had a cough from lisinopril in September 2016. I added spironolactone as of September 2018. Problem Anemia, unspecified type D64.9 Active 5721190 00 He has what appears to be iron deficiency anemia. He will start iron supplementation. I will recheck his labs in March 2020. 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 Had a prostate/rectal examination in November 2017 with the colorectal surgeon I believe, and a colonoscopy in 2012, March 2014 with that provider. Because of his iron deficiency needs a follow-up colonoscopy. Problem Vitamin D deficiency E55.9 Active [id number] Dukes d a level of 15 in 2011--and was on Drisdol for a period of time. A followup level was 24 in February 2015 and he started awen-kkz-vccatuo supplementation with 2000 units daily. His most recent vitamin D level was 39 at the [place] in December 2018. Problem Erectile dysfunction, unspecified erectile dysfunction typ e N52.9 Active 170520678 He failed PDE-5 inhibitors s o we again recommended MUSE as of April 2018. Apparently Caverject was tried in the past... I started testosterone supplementation with PDE 5 inhibitor supplementation as of February 2020. Problem Dysthymia F34.1 Active 81964618 He has signif icant depression. He is currently on citalopram as of August 2018 and increased the dose to 20 mg daily as of September 2018. He is also seeing a psychiatrist as of August 2018. Problem Lumbago with sciatica, right side M54.41 Active 353077060 Problem Other chronic pain G89.29 Active 83123970 ALLERGIES No Known Allergies ENCOUNTERS from 1945 to 2020-03-17 Encounter Location Date Provider Diagnosis [address] [address] Mar, Bernard Cam Erectile dysfunction, unspecified erecti le dysfunction type N52.9 IMMUNIZATIONS Vaccine Route Administration Date Status Influenza (High Dose 65 & up) Unknown Nov 22, 2017 Ad ministered Influenza (High Dose 65 & up) Unknown Jan 10, 2017 Ad ministered Influenza (High Dose 65 & up) IM Intramuscular Dec 29, 2015 A dministered Influenza (High Dose 65 & up) IM Intramuscular Dec 21, 2014 A dministered Zoster 0.65mL (Zostavax) Unknown Mar 05, 2006 Adminis tered Pneumococcal Adult 0.5mL (Pneumovax 23) Unknown Dec 13, 2011 Administered Zoster 50mcg/0.5mL (Shingrix) Unknown October 01, 2017 Ad ministered TDAP Unknown Feb 03, 2004 Administered Zoster 50mcg/0.5mL (Shingrix) IM Intramuscular Dec 18, 2017 A dministered Pneumococcal 0.5mL (Prevnar 13) IM Intramuscular Feb 15, 2016 Administered TD Adult 0.5mL (Tetanus) Unknown Jan 04, 2004 Adminis tered SOCIAL HISTORY Tobacco Use: Social History Observation Description Date Details (start date - stop date) Former Smoker Sex Assigned At : Social History Observation Description Sex Assigned At Male Education: Question Answer Notes Level of Education: Finished High School Audit Question Answer Notes Total Score: 2 Interpretation: Alcohol Education Domestic Violence: Question Answer Notes Status: Sexual Hx: Question Answer Notes Had sex in the last 12 months (vaginal, oral, or anal)? Yes Have you ever had an STD? No with Women only Drug and Alcohol Question Answer Notes Total Score: 0 Interpretation: No problems reported Alcohol Screening: Question Answer Notes Did you have a drink containing alcohol in the past year? Ye s Points 2 Interpretation Negative How often did you have six or more drinks on one occas ion in the past year? Never (0 points) How many drinks did you have on a typica l day when you were drinking in the past year? 1 or 2 (0 points) How often did you have a drink containing alcohol in t he past year? Two to four times a month (2 points) BMI Care Goal Follow-Up Question Answer Notes Above Normal BMI Follow-Up Weight monitoring Tobacco Use: Question Answer Notes Are you a: former smoker How long has it been since you last smoked? 1-5 years REASON FOR REFERRAL No Information VITAL SIGNS No information MEDICATIONS Medication SIG (Take, Route, Frequency, Duration) Notes Start Da te End Date Status Blood Glucose Test - Accucheck test strips In Vitro 3-4 times a day Active MiraLax 1 packet 1 packet mixed with 8 ounces of fluid Orally Once a day Active Gaviscon 80-14.2 MG 2 tablets after meals and at bedtime as needed Orally as directed Active Lancets - Accu check multiclick lancets 3-4 times a day Active Magnesium 400 MG 1 tab(s) Orally daily for 90 day(s) Active Lantus SoloStar 100 UNIT/ML 40 units Subcutaneous Once daily for 90 day(s) Jun, Active Citalopram Hydrobromide 20 MG 1 tablet Orally Once a day in the AM Aug, Active Hydrocodone-Acetaminophen 5-325 MG 1 tablet Orally thuan ry 6 hrs as needed for neck pain for 7 days Dec, Active NovoLog Flexpen 100 UNIT/ML Per sliding scale Subcutaneous as needed Active Aspirin 81 MG 1 tablet Orally Once a day Active Pen [place] 1/2" 29G X 12MM bd needles DX: E11.9 Four times daily with insulin for 50 Active Dexilant 60 MG 1 capsule Orally Once a day for 90 day(s) Active Docusate Sodium 250 MG 1 capsule as needed Orally Once a day Active Spironolactone 25 MG 1/2 tablet Orally Every Sun/Sun/Sun for 90 day(s) Sep, Active Vitamin D 2000 UNIT one capsule Orally daily Feb, Active Metformin HCl 1000 MG 1 tablet with meals Orally Twice a day for 90 d ays Active Plavix 75 mg 1 tablet Orally Once a day for 90 days Active Lovaza 1GM 2 capsules Orally Twice a day for 90 Active AndroGel 20.25 MG/1.25GM (1.62%) 1 packet to skin in t he morning to shoulder and upper arms Transdermal Once a day, MDD=1.25GM for 30 days Feb Active Gabapentin 600 MG as directed Orally 1 tablet twice daily during daytime hours and 2 tablets at night Active Chlorthalidone 25 MG 1/2 tablet in the morning Orally Once a day for 90 day(s) Active Losartan Potassium 100 MG 1 tablet Orally Once a day for 30 Active Tylenol 8 Hour 650 MG 2 tablets as needed Orally bedtime Active Crestor 20 MG 1 tablet Orally Once a day July, Active Nitroglycerin 0.4 MG 1 tablet under the tongue an d allow to dissolve Sublingual 1 tab every 5 minutes for 3 doses as needed for chest pain for 30 day(s) Active Tamsulosin HCl 0.4 MG 1 capsule Orally Once a day for 90 day(s) May, Not-Taking Super B Complex _ 1 cap orally Daily Active Vitamin B12 1000 MCG 1 tablet Orally Once a day Feb, Active Halobetasol Propionate 0.05 % 1 application to affecte d area on arms Externally Once a day for 30 day(s) July, Not-Zach ing Sildenafil Citrate 100 MG One half to one tablet As ne eded Once a day as needed for 30 day(s) Feb, Active Metoprolol Succinate 25 MG 1 tablet Orally Once a day for 90 days Active ProAir HFA 108 (90 Base) MCG/ACT 2 puffs Inhalation ev patricia 4 hrs as needed for cough/wheeze/SOB for 30 day(s) Sep, N ot-Taking Fluticasone Propionate 50 MCG/DOSE 2sprays in each nostril Nasal ly Once a day Active PROCEDURES No Information RESULTS No Results REASON FOR VISIT testosterone MEDICAL (GENERAL) HISTORY Type Description Date Medical History Coronary artery disease Medical History Type 2 diabetes mellitus with other spec ified complication Medical History Gastroesophageal reflux disease Medical History Hypertension Medical History Hemorrhoids Medical History Anxiety disorder Medical History Hypercholesterolemia Medical History Lesion of lung Medical History Vitamin D deficiency Medical History Lumbar spinal stenosis Medical History Memory deficit Medical History Neuropathic arthritis Medical History 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 of 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 Medical History Inflammatory arthritis Medical History History of adenomatous polyp of colon Medical History Chronic fatigue Surgical History tonsillectomy Surgical History bilateral rotator cuff right 2002, left 2009 Surgical History colonoscopy 04/2003 Surgical History anal fissure 12/2005 Surgical History cardiac stents 05/2011 Surgical History Colonoscopy 01/2013 Goals Section No Information Health Concerns No Information MEDICAL EQUIPMENT No Information MENTAL STATUS No Information FUNCTIONAL STATUS No Information ASSESSMENTS Encounter Date Diagnosis Assessment Notes Treatment Notes Treatm ent Clinical Notes Mar, Erectile dysfunction, unspec ified erectile dysfunction type (ICD-10 - N52.9) PLAN OF TREATMENT Medication Medication Name Sig Start Date Stop Date AndroGel 20.25 MG/1.25GM (1.62%) 1 packet to skin in t he morning to shoulder and upper arms Transdermal Once a day, MDD=1.25GM for 30 days Feb, Sildenafil Citrate 100 MG One half to one tablet As ne eded Once a day as needed for 30 day(s) Feb, Dexilant 60 MG 1 capsule Orally Once a day for 90 day(s) Insurance Providers Payer Name Payer Address Payer Phone Insured Name Patient Relati onship to Insured Coverage Start Date Coverage End Date [place] [id number] [address] [facility] [id number] [phone] [employer]AN [employer] [facility] [address] [place] [phone] HUAN CORDOVA MEDICARE Part A and B [address] [facility] [id number] [phone] HUAN CORDOVA self
--- OUTSIDE RECORDS SUMMARY | 2020-03-23 11:56 | CCD ---
Author Author [facility] Organization [facility] Address Unknown Phone Unavailable Care Team Providers Care School Age Program Teacher Name Role Phone Bernard Cam Unavailable PROBLEMS Type Condition ICD9-CM Code [id number] Code Onset Dates Condition S tatus SNOMED Code Notes Problem Lesion of lung R91.1 Active [id number] 3.6mm l radha nodule seen on CT in 04/2012. He sees pulmonology, had normal PFT's in 05/2012. He had had another CT of chest 05/2013 which was stable and there were no recommendations for a repeat study. Problem Coronary artery disease I25.10 Active 49762713 He had three-vessel disease diagnosed after an [...] saeed, Plavix, aspirin and statin therapy. His co founder and ceo has recommended lifelong Plavix. Problem Anxiety disorder F41.9 Active [id number] Has p eriodic anxiety possibly related to [...] 2018. Problem Gastroesophageal reflux disease K21.9 Active [id number] He has been on Dexilant since about [...] normal gastric emptying study in 2016. His oral health therapist switched him from Protonix to Zegerid in early 2018 and this was of no benefit. A Doppler ultrasound of his mesenteric arteries in April 2018 was not revealing for significant stenosis. Problem Lumbar spinal stenosis M48.06 Active 78008941 He apparently had a confirmatory MRI in about 2013 at [facility]. He has ongoing issues. He no longer receives physical therapy. He is on gabapentin 600/600/1200 mg on a 3 times a day schedule. Problem History of adenomatous polyp of colon Z86.010 Ac tive [id number] He had an adenomatous polyp in March 2014 and probably needs a follow-up in 2019. Problem Neuropathic arthritis M14.60 Active 28969880 H e has neuropathic symptoms of his [...] his discomforts. Problem Memory deficit R41.3 Active 092739731 He has been evaluated for memory loss by a neurologist in 2013. His serologic evaluation was negative. I am not an advocate of Namenda or Aricept. He is apparently taking vitamin B12 supplementation despite a normal level in Fall 2013. 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 Problem Hypercholesterolemia E78.00 Active 46394065 On Crestor instead of Lipitor as of 2017 (concerns about myalgias on Lipitor resulted in that switch but it made no difference) and Lovaza therapy . Lipids are controlled with medications as of November 2019. Problem Chronic fatigue R53.82 Active 86385446 TSH and testosterone level were normal in August 2017 and again in February 2020, although his free testosterone level was a bit low. We will try supplementation as of February 2020. Problem Type 2 diabetes mellitus with other specified complication E11.69 Active 34476791 On metformin, Lantus 40 unit s daily, [...] 2018, 7% in [place] 2017 at the [place]. His urine microalbumin was negative in November [...] Problem Repetitive rocking movements F98.4 Active 301 57380 I've asked for neurology consultation. Problem Inflammatory arthritis M19.90 Active 7699890 H dimitris has an inflammatory arthritis primarily [...] is on gabapentin. Problem Hypertension I10 Active 05719648 On losarta n, chlorthalidone, spironolactone 3 times a week, and metoprolol. Has no endorgan complications. Blood pressure is optimally controlled by his report of home readings. He had a cough from lisinopril in September 2016. I added spironolactone as of September 2018. Problem Anemia, unspecified type D64.9 Active 3913153 00 He has what appears to be iron deficiency anemia. He will start iron supplementation. I will recheck his labs in March 2020. 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 Had a prostate/rectal examination in November 2017 with the colorectal surgeon I believe, and a colonoscopy in 2012, March 2014 with that provider. Because of his iron deficiency needs a follow-up colonoscopy. Problem Vitamin D deficiency E55.9 Active 20519861 Dukes d a level of 15 in 2011--and was on Drisdol for a period of time. A followup level was 24 in February 2015 and he started [id number] supplementation with 2000 units daily. His most recent vitamin D [place] was 39 at the [place] in [place] 2018. Problem Erectile dysfunction, unspecified erectile dysfunction typ e N52.9 Active 316639479 He failed PDE-5 inhibitors s o we again recommended MUSE as of April 2018. Apparently Caverject was tried in the past... I started testosterone supplementation with PDE 5 inhibitor supplementation as of February 2020. Problem Dysthymia F34.1 Active 92786137 He has signif icant depression. He is currently on citalopram as of August 2018 and increased the dose to 20 mg daily as of September 2018. He is also seeing a psychiatrist as of August 2018. Problem Lumbago with sciatica, right side M54.41 Active 905907385 Problem Other chronic pain G89.29 Active 31488002 ALLERGIES No Known Allergies ENCOUNTERS from 1945 to 2020-02-23 Encounter Location Date Provider Diagnosis [address] [address] Feb, Bernard Cam Erectile dysfunction, unspecified erecti le [...] tablet Orally Once a day Active Pen [place] 1/2" 29G X 12MM bd needles DX: E11.9 Four times daily with insulin for 50 Active Vitamin D 2000 UNIT one capsule Orally daily Feb, Active Docusate Sodium 250 MG 1 capsule as needed Orally Once a day Active Spironolactone 25 MG 1/2 tablet Orally Every Sun/Sun/Sun for 90 day(s) Sep, Active Dexilant 60 MG 1 capsule Orally Once a day for 90 Active Plavix 75 mg 1 tablet Orally Once a day for 90 days Active Vitamin B12 1000 MCG 1 tablet Orally Once a day Feb, Active AndroGel 20.25 MG/1.25GM (1.62%) 1 packet to skin in t he morning to shoulder and upper arms Transdermal Once a day for 30 days Feb, Active Losartan Potassium 100 MG 1 tablet Orally Once a day for 30 Active Gabapentin 600 MG as directed Orally 1 tablet twice daily during daytime hours and 2 tablets at night Active Tamsulosin HCl 0.4 MG 1 capsule Orally Once a day for 90 day(s) May, Not-Taking Metformin HCl 1000 MG 1 tablet with meals Orally Twice a day for 90 d ays Active Tylenol 8 Hour 650 MG 2 tablets as needed Orally bedtime Active Crestor 20 MG 1 tablet Orally Once a day July, Active Nitroglycerin 0.4 MG 1 tablet under the tongue an d allow to dissolve Sublingual 1 tab every 5 minutes for 3 doses as needed for chest pain for 30 day(s) Active Lovaza 1GM 2 capsules Orally Twice a day for 90 Active Super B Complex _ 1 cap orally Daily Active Chlorthalidone 25 MG 1/2 tablet in the morning Orally Once a day for 90 day(s) Active Halobetasol Propionate 0.05 % 1 application [...] Information RESULTS No Results REASON FOR VISIT AndroGel 1.62% MEDICAL (GENERAL) HISTORY Type Description Date Medical [...] deficit Medical History Neuropathic arthritis Medical History group home current use of insulin Medical History Inflammatory [...] Notes Treatment Notes Treatm ent Clinical Notes Feb, Erectile dysfunction, unspec ified erectile dysfunction type (ICD-10 - N52.9) He failed PDE-5 inhibitors so we again r ecommended MUSE as of April 2018. Apparently Caverject was tried in the past... I started testosterone supplementation with PDE 5 inhibitor supplementation as of February 2020. PLAN OF TREATMENT Medication Medication Name Sig Start Date Stop Date AndroGel 20.25 MG/1.25GM (1.62%) 1 packet to skin in t he morning to shoulder and upper arms Transdermal Once a day for 30 days Feb, Sildenafil Citrate 100 MG One half to one tablet As ne eded Once a day as needed for 30 day(s) Feb, Treatment Notes Test Name Order Date TESTOSTERONE FREE & TOTAL 2020-02-23 Insurance Providers Payer Name Payer Address Payer Phone Insured Name Patient Relati onship to Insured Coverage Start Date Coverage End Date [facility] [address] [place] [phone] HUAN CORDOVA [facility] [place] [address] [address] [facility] [address] [phone] HUAN CORDOVA MEDICARE Part A and B [address] [facility] [address] [phone] HUAN CORDOVA
--- OUTSIDE RECORDS SUMMARY | 2020-03-23 11:56 | CCD ---
Author Author [employer] [employer] [facility] [employer] [facility] Organization [facility] Address Unknown Phone Unavailable Care Team Providers Care Skilled Nursing Facility Counselor Name Role Phone Bernard Cam Unavailable PROBLEMS Type Condition ICD9-CM Code [id number] Code Onset Dates Condition S tatus SNOMED Code Notes Problem Vitamin D deficiency E55.9 Active [id number] Dukes d a level of 15 in 2011--and was on Drisdol for a period of time. A followup level was 24 in February 2015 and he started [id number]-[id number] supplementation with 2000 units daily. His most recent vitamin D level was 39 at the [place] in December 2018. Problem Hypertension I10 Active 70783609 On losarta n, chlorthalidone, spironolactone 3 times a week, and metoprolol. Has no endorgan complications. Blood pressure is optimally controlled. He had a cough from lisinopril in September 2016. I added spironolactone as of September 2018. Problem History of adenomatous polyp of colon Z86.010 [facility] 615641986 He had an adenomatous polyp in March 2014 and probably needs a follow-up in 2019. Problem Coronary artery disease I25.10 Active 10029495 He had three-vessel disease diagnosed after an [...] saeed, Plavix, aspirin and statin therapy. His green tire inspector has recommended lifelong Plavix. Problem Lesion of lung R91.1 Active [id number] 3.6mm l radha nodule seen on CT in 04/2012. He sees pulmonology, had normal PFT's in 05/2012. He had had another CT of chest 05/2013 which was stable and there were no recommendations for a repeat study. Problem Lumbar spinal stenosis M48.06 Active 48521018 He apparently had a confirmatory MRI in about 2013 at [facility]. He has ongoing issues. He no longer receives physical therapy. Problem Anxiety disorder F41.9 Active 667327346 Has p eriodic anxiety possibly related to [facility] experience. He has the past seen a [...] 2018. Problem Gastroesophageal reflux disease K21.9 Active 363820613 On Protonix (barbara) in the past, taken daily. No benefit to twice daily therapy. Patient has ongoing discomfort in that he has ongoing postprandial discomfort only partially relieved with Gaviscon. Carafate was of no benefit. He had his most recent endoscopy in April 2018 which showed some reactive gastropathy. He had a normal gastric emptying study in 2016. His chief of production switched him from Protonix to Zegerid in early 2018 and this was of no benefit. A Doppler ultrasound of his mesenteric arteries in April 2018 was not revealing for significant stenosis. We will try a month's worth of Dexilant instead of Protonix as of January 2019. 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 Topical Voltarin [...] April 2018 and again in November 2019. Problem Hypercholesterolemia E78.00 Active 05304999 On Crestor instead of Lipitor as of 2017 (concerns about myalgias on Lipitor resulted in that switch but it made no difference) and fish oil therapy . Lipids are controlled with medications as of November 2019. Problem Lumbago with sciatica, right side M54.41 Active 537003758 Problem Neuropathic arthritis M14.60 Active 05470286 H e has neuropathic symptoms of his hands and feet. This may relate to his diabetes or to his arthritic syndrome. He apparently has tried Lyrica in the past, and nortriptyline caused urinary retention. We did try Lamictal in Summer 2016 but he did not maintain that therapy. He is taking gabapentin 1200 mg in the evening and he should consider taking a daytime dose. He tried CBD oil with no benefit. Tramadol was initiated as of April 2018 but it was not of benefit. It appears that citalopram, started in August 2018, may have palliated some of his discomforts. Problem Other chronic pain G89.29 Active 92545222 Problem Memory deficit R41.3 Active 916311698 He has been evaluated for memory loss by a neurologist in 2013. His serologic evaluation was negative. I am not an advocate of Namenda or Aricept. He is apparently taking vitamin B12 supplementation despite a normal level in Fall 2013. 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 Problem Hemorrhoids K64.9 Active 19859076 Saw surgeon in June 2015 and again in Fall 2017. Had a prostate/rectal examination in November 2017 with the colorectal surgeon I believe, and a colonoscopy in 2012, March 2014 with that provider. Problem Chronic fatigue R53.82 Active 28420691 TSH and testosterone level were normal in August 2017. Problem Type 2 diabetes mellitus with other specified complication E11.69 Active 57458931 On metformin, Lantus and sli ding scale insulin therapy, Amaryl, Victoza (substituted for Byetta in August 2009) stopped in late 2010. Last HgbA1c was 6.2% in November 2019[facility], 7.2% in September 2018, 7.8% in April 2018, [facility]. last microalbumin was negative in November 2019; he is on an ARB nevertheless. There is some stable diabetic retinopathy bilaterally. His last eye exam was in December 2017. Last LE sensory examination was in August 2017 and he had electrodiagnostics in early 2013. I attempted to add Jardiance to his regimen in hopes to facilitate some weight loss and to reduce his insulin requirements but his insurance company has denied that apparently. He has a diabetic neuropathy. Problem Erectile dysfunction, unspecified erectile dysfunction typ e N52.9 Active 505047056 He failed PDE-5 inhibitors s o we again recommended MUSE as of April 2018. Apparently Caverject was tried in the past... Problem Dysthymia F34.1 Active 84026271 He has signif icant depression. He is currently on citalopram as of August 2018 and increased the dose to 20 mg daily as of September 2018. He is also seeing a psychiatrist as of August 2018. ALLERGIES No Known Allergies ENCOUNTERS from 1945 to 2020-02-16 Encounter Location Date Provider Diagnosis [address] [address] 13 Feb, 2020 [facility] IMMUNIZATIONS Vaccine Route Administration Date Status Influenza [...] Notes Start Da te End Date Status Gabapentin 400 MG 3 capsule Orally bedtime Active Spironolactone 25 MG 1/2 tablet Orally Every Mon/Wed/Fri for 90 day(s) Sep, Active Hydrocodone-Acetaminophen 5-325 MG 1 tablet Orally thuan ry 6 hrs as needed for neck pain for 7 days Dec, Active NovoLog Flexpen 100 UNIT/ML Per sliding scale Subcutaneous as needed Active Aspirin 81 MG 1 tablet Orally Once a day Active MiraLax 1 packet 1 packet mixed with 8 ounces of fluid Orally Once a day Active Super B Complex _ 1 cap orally Daily Active Docusate Sodium 250 MG 1 capsule as needed Orally Once a day Active Protonix 40 MG 1 tablet Orally daily BARBARA Active Citalopram Hydrobromide 20 MG 30 Orally Once a day in the AM Aug, Active Tylenol 8 Hour 650 MG 2 tablets as needed Orally bedtime Active Magnesium 400 MG 1 tab(s) Orally daily for 90 day(s) Active Vitamin B12 1000 MCG 5 tablet (5000mcg) Orally Once a day Feb, Not-Taking Crestor 20 MG 1 tablet Orally Once a day July, Active Gaviscon 80-14.2 MG 2 tablets after meals and at bedtime as needed Orally as directed Active Nitroglycerin 0.4 MG 1 tablet under the tongue an d allow to dissolve Sublingual 1 tab every 5 minutes for 3 doses as needed for chest pain for 30 day(s) Active Fluticasone Propionate 50 MCG/DOSE 2sprays in each nostril Nasal ly Once a day Active Metformin HCl 1000 MG 1 tablet with meals Orally Twice a day for 90 d ays Active Chlorthalidone 25 MG 1/2 tablet in the morning Orally Once a day for 90 day(s) Active Lancets - Accu check multiclick lancets 3-4 times a day Active [place] 1000 MCG 1 pellet Urethral insertion Daily as needed for 30 day(s) Dec, Active Cipro 500 MG 1 tablet Orally every 12 hrs for 1 days 2019 Active Blood Glucose Test - Accucheck test strips In Vitro 3-4 times a day Active Dexilant 60 MG 1 capsule Orally Once a day for 90 Active Pen [place] 1/2" 29G X 12MM bd needles DX: E11.9 Four times daily with insulin for 50 Active Tamsulosin HCl 0.4 MG 1 capsule Orally Once a day for 90 day(s) May, Not-Taking ProAir HFA 108 (90 Base) MCG/ACT 2 puffs Inhalation ev patricia 4 hrs as needed for cough/wheeze/SOB for 30 day(s) Sep, N ot-Taking Plavix 75 mg 1 tablet Orally Once a day for 90 days Active Losartan Potassium 100 MG 1 tablet Orally Once a day for 30 Active Halobetasol Propionate 0.05 % 1 application to affecte d area on arms Externally Once a day for 30 day(s) July, Not-Zach ing Lantus SoloStar 100 UNIT/ML 40 units Subcutaneous Once daily for 90 day(s) Jun, Active Vitamin D 2000 UNIT one capsule Orally daily Feb, Active Metoprolol Succinate 25 MG 1 tablet Orally Once a day for 90 days Active Lovaza 1GM 2 capsules Orally Twice a day for 90 Active PROCEDURES No Information RESULTS No Results REASON FOR VISIT appt MEDICAL (GENERAL) HISTORY Type Description Date Medical [...] deficit Medical History Neuropathic arthritis Medical History longterm current use of insulin Medical History Inflammatory [...] No Information FUNCTIONAL STATUS No Information ASSESSMENTS No Information PLAN OF TREATMENT Medication Medication Name Sig Start Date Stop Date Cipro 500 MG 1 tablet Orally every 12 hrs for 1 days Apr, Lantus SoloStar 100 UNIT/ML 40 units Subcutaneous Once daily for 90 day(s) Jun, Pen [place] 1/2" 29G X 12MM bd needles DX: E11.9 Four times daily with insulin for 50 Dexilant 60 MG 1 capsule Orally Once a day for 90 Next Appt Details Provider Name:Bernard Cam 2020-02-18 07 :30:00 AM, [address] [place], [address], Insurance Providers Payer Name Payer Address Payer Phone Insured Name Patient Relati onship to Insured Coverage Start Date Coverage End Date [facility] [address] [place] [phone] HUAN CORDOVA [place] [address] [address] [facility] [address] [phone] HUAN CORDOVA MEDICARE Part A and B [address] [facility] [address] [phone] HUAN CORDOVA
--- OUTSIDE RECORDS SUMMARY | 2020-03-23 11:56 | CCD ---
Author Author [employer] Organization [employer] Address Unknown Phone Unavailable Care Team Providers Care Instrumentation Tech Name Role Phone Bernard Cam Unavailable PROBLEMS Type Condition ICD9-CM Code [id number] Code Onset Dates Condition S tatus SNOMED Code Notes Problem Lesion of lung R91.1 Active [id number] 3.6mm l radha nodule seen on CT in 04/2012. He sees pulmonology, had normal PFT's in 05/2012. He had had another CT of chest 05/2013 which was stable and there were no recommendations for a repeat study. Problem Coronary artery disease I25.10 Active 40950067 He had three-vessel disease diagnosed after an [...] saeed, Plavix, aspirin and statin therapy. His multimedia instructional designer has recommended lifelong Plavix. Problem Anxiety disorder F41.9 Active 583542315 Has p eriodic anxiety possibly related to [...] 2018. Problem Gastroesophageal reflux disease K21.9 Active 405279291 He has been on Dexilant since about [...] normal gastric emptying study in 2016. His digital media specialist switched him from Protonix to Zegerid in early 2018 and this was of no benefit. A Doppler ultrasound of his mesenteric arteries in April 2018 was not revealing for significant stenosis. Problem Lumbar spinal stenosis M48.06 Active 95754407 He apparently had a confirmatory MRI in about 2013 at [facility]. He has ongoing issues. He no longer receives physical therapy. He is on gabapentin 600/600/1200 mg on a 3 times a day schedule. Problem History of adenomatous polyp of colon Z86.010 Ac tive 972178916 He had an adenomatous polyp in March 2014 and probably needs a follow-up in 2019. Problem Neuropathic arthritis M14.60 Active 43775033 H e has neuropathic symptoms of his [...] his discomforts. Problem Memory deficit R41.3 Active 106932576 He has been evaluated for memory loss by a neurologist in 2013. His serologic evaluation was negative. I am not an advocate of Namenda or Aricept. He is apparently taking vitamin B12 supplementation despite a normal level in Fall 2013. 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 Problem Hypercholesterolemia E78.00 Active 94721118 On Crestor instead of Lipitor as of 2017 (concerns about myalgias on Lipitor resulted in that switch but it made no difference) and Lovaza therapy . Lipids are controlled with medications as of November 2019. Problem Chronic fatigue R53.82 Active 81830153 TSH and testosterone level were normal in August 2017 and again in February 2020, although his free testosterone level was a bit low. We will try supplementation as of February 2020. Problem Type 2 diabetes mellitus with other specified complication E11.69 Active 06476577 On metformin, Lantus 40 unit s daily, [...] 2018, 7% in November 2017 at the [place]. His urine microalbumin was negative in November [...] Problem Repetitive rocking movements F98.4 Active 301 27218 I've asked for neurology consultation. Problem Inflammatory arthritis M19.90 Active 5870591 H dimitris has an inflammatory arthritis primarily [...] is on gabapentin. Problem Hypertension I10 Active 10229731 On losarta n, chlorthalidone, spironolactone 3 times a week, and metoprolol. Has no endorgan complications. Blood pressure is optimally controlled by his report of home readings. He had a cough from lisinopril in September 2016. I added spironolactone as of September 2018. Problem Anemia, unspecified type D64.9 Active 0616735 00 He has what appears to be iron deficiency anemia. He will start iron supplementation. I will recheck his labs in March 2020. 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 Had a prostate/rectal examination in November 2017 with the colorectal surgeon I believe, and a colonoscopy in 2012, March 2014 with that provider. Because of his iron deficiency needs a follow-up colonoscopy. Problem Vitamin D deficiency E55.9 Active 77658645 Dukes d a level of 15 in 2011--and was on Drisdol for a period of time. A followup level was 24 in February 2015 and he started yjvd-ifn-akxitzd supplementation with 2000 units daily. His most recent vitamin D level was 39 at the [place] in December 2018. Problem Erectile dysfunction, unspecified erectile dysfunction typ e N52.9 Active 759061100 He failed PDE-5 inhibitors s o we again recommended MUSE as of April 2018. Apparently Caverject was tried in the past... I started testosterone supplementation with PDE 5 inhibitor supplementation as of February 2020. Problem Dysthymia F34.1 Active 96708061 He has signif icant depression. He is currently on citalopram as of August 2018 and increased the dose to 20 mg daily as of September 2018. He is also seeing a psychiatrist as of August 2018. Problem Lumbago with sciatica, right side M54.41 Active 243307583 Problem Other chronic pain G89.29 Active 00160493 ALLERGIES No Known Allergies ENCOUNTERS from 1945 to 2020-02-24 Encounter Location Date Provider Diagnosis [address] [address] 16 Feb, 2020 Bernard Cam Type 2 diabetes mellitus with other spec ified complication E11.69 ; Coronary artery disease I25.10 ; Gastroesophageal reflux disease K21.9 ; Hypertension I10 ; Hemorrhoids K64.9 ; Anxiety disorder F41.9 ; Hypercholesterolemia E78.00 ; Inflammatory arthritis M19.90 ; Memory deficit R41.3 ; Neuropathic arthritis M14.60 ; Chronic fatigue R53.82 ; History of adenomatous polyp of colon Z86.010 ; Erectile dysfunction, unspecified erectile dysfunction type N52.9 ; Dysthymia F34.1 ; Repetitive rocking movements 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 ; Anemia, unspecified type D64.9 ; Lumbar stenosis M48.061 ; Pain in right shoulder M25.511 ; Pain in left shoulder M25.512 and predatory animal exterminator 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.4 IMMUNIZATIONS Vaccine Route Administration Date Status Influenza (High Dose 65 & up) IM Intramuscular Dec 21, 2014 A dministered Zoster 0.65mL (Zostavax) Unknown Mar 05, 2006 Adminis tered Zoster 50mcg/0.5mL (Shingrix) Unknown October 01, 2017 Ad ministered Influenza (High Dose 65 & up) Unknown Nov 22, 2017 Ad ministered Influenza (High Dose 65 & up) Unknown Jan 10, 2017 Ad ministered Pneumococcal Adult 0.5mL (Pneumovax 23) Unknown Dec 13, 2011 Administered Influenza (High Dose 65 & up) IM Intramuscular Dec 29, 2015 A dministered TDAP Unknown Feb 03, 2004 Administered Zoster [...] REASON FOR REFERRAL No Information VITAL SIGNS Weight 205 (reported) lbs Feb, Height 68 in Feb, BMI 31.17 kg/m2 Feb, MEDICATIONS Medication SIG (Take, Route, Frequency, Duration) [...] tablet Orally Once a day Active Pen [place] 1/2" 29G X 12MM bd needles DX: [...] Information RESULTS No Results REASON FOR VISIT Follow up MEDICAL (GENERAL) HISTORY Type Description Date Medical [...] Treatment Notes Treatm ent Clinical Notes Feb, Type 2 diabetes mellitus wit h other specified complication (ICD-10 - E11.69) On metformin, Lantus 40 units daily, sli ding scale insulin therapy which is usually dosed at 6-8 units 3 times a day. Amaryl, Victoza (substituted for Byetta in August 2009) stopped in late 2010. Last HgbA1c was 6.5% in February 2020, 6.2% in November 2019, [facility], 7.2% in September 2018, 7.8% in April 2018, 7% in November 2017 at the [place]. His urine microalbumin was negative in November [...] that apparently. He has a diabetic neuropathy. Feb, Coronary artery disease (ICD-10 - I25.10 ) He had three-vessel disease diagnosed after an [...] saeed, Plavix, aspirin and statin therapy. His multimedia instructional designer has recommended lifelong Plavix. Feb, Gastroesophageal reflux disease (ICD-10 - K21.9) He has been on Dexilant since about [...] normal gastric emptying study in 2016. His digital media specialist switched him from Protonix to Zegerid in early 2018 and this was of no benefit. A Doppler ultrasound of his mesenteric arteries in April 2018 was not revealing for significant stenosis. Feb, Hypertension (ICD-10 - I10) On losartan, chlorthalidone, spironolactone 3 times a week, and metoprolol. Has no endorgan complications. Blood pressure is optimally controlled by his report of home readings. He had a cough from lisinopril in September 2016. I added spironolactone as of September 2018. Feb, Hemorrhoids (ICD-10 - K64.9) Saw surgeon in June 2015 and again in Fall 2017. Had a prostate/rectal examination in November 2017 with the colorectal surgeon I believe, and a colonoscopy in 2012, March 2014 with that provider. Because of his iron deficiency needs a follow-up colonoscopy. Feb, Anxiety disorder (ICD-10 - F41.9) Has pe riodic anxiety possibly related to [facility] experience. He has the past seen a [...] to 20 mg daily in September 2018. Feb, Hypercholesterolemia (ICD-10 - E78.00) O n Crestor instead of Lipitor as of 2017 (concerns about myalgias on Lipitor resulted in that switch but it made no difference) and Lovaza therapy . Lipids are controlled with medications as of November 2019. Feb, Inflammatory arthritis (ICD-10 - M19.90) He has an inflammatory arthritis primarily affecting his [...] in November 2019. He is on gabapentin. Feb, Memory deficit (ICD-10 - R41.3) He has b een evaluated for memory loss by a neurologist in 2013. His serologic evaluation was negative. I am not an advocate of Namenda or Aricept. He is apparently taking vitamin B12 supplementation despite a normal level in Fall 2013. 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 Feb, Neuropathic arthritis (ICD-10 - M14.60) He has neuropathic symptoms of his hands and [...] may have palliated some of his discomforts. Feb, Chronic fatigue (ICD-10 - R53.82) TSH an d testosterone level were normal in August 2017 and again in February 2020, although his free testosterone level was a bit low. We will try supplementation as of February 2020. Feb, History of adenomatous polyp of colon (I CD-10 - Z86.010) He had an adenomatous polyp in March 2014 and probably needs a follow-up in 2019. Feb, Erectile dysfunction, unspec ified erectile dysfunction type (ICD-10 - N52.9) He failed PDE-5 inhibitors so we again r ecommended MUSE as of April 2018. Apparently Caverject was tried in the past... I started testosterone supplementation with PDE 5 inhibitor supplementation as of February 2020. Feb, Dysthymia (ICD-10 - F34.1) He has signif icant depression. He is currently on citalopram as of August 2018 and increased the dose to 20 mg daily as of September 2018. He is also seeing a psychiatrist as of August 2018. Feb, Repetitive rocking movements (ICD-10 - F 98.4) I've asked for neurology consultation. Feb, Anemia, unspecified type (ICD-10 - D64.9 ) He has what appears to be iron deficiency anemia. He will start iron supplementation. I will recheck his labs in March 2020. Feb, Lumbar stenosis (ICD-10 - M48.061) He ap parently had a confirmatory MRI in about 2013 at [facility]. He has ongoing issues. He no longer receives physical therapy. He is on gabapentin 600/600/1200 mg on a 3 times a day schedule. Feb, Pain in right shoulder (ICD-10 - M25.511 ) He has been referred to orthopedics for further investigation. Feb, Pain in left shoulder (ICD-10 - M25.512) He is being referred to orthopedics for further investigation. Feb, longterm current use of insulin (ICD-10 - Z79.4 ) PLAN OF TREATMENT Medication Medication Name Sig Start Date Stop Date AndroGel 20.25 MG/1.25GM (1.62%) 1 packet to skin in t he morning to shoulder and upper arms Transdermal Once a day for 30 days Feb, Sildenafil Citrate 100 MG One half to one tablet As ne eded Once a day as needed for 30 day(s) Feb, Future Test Test Name Order Date HEMOGLOBIN A1c 20200705 MAGNESIUM LEVEL 20200705 LIPID PANEL (CARDIAC RISK) [id number] CBC with Differential [id number] Comprehensive Metabolic Profile (CMP) [id number] Next Appt Details 07/2020 in office Reason: Insurance Providers Payer Name Payer Address Payer Phone Insured Name Patient Relati onship to Insured Coverage Start Date Coverage End Date MEDICARE Part A and B [address] [facility] [phone] HUAN C[employer]OVA [place] [address] [address] [place] [address] HUAN CORDOVA PGBA [facility] [address] [place] [phone] HUAN CORDOVA self
--- OUTSIDE RECORDS SUMMARY | 2020-03-23 11:56 | CCD ---
Author Author [employer] Organization [employer] Address Unknown Phone Unavailable Care Team Providers Care Linen Worker Name Role Phone Bernard Cam Unavailable PROBLEMS Type Condition ICD9-CM Code [id number] Code Onset Dates Condition S tatus SNOMED Code Notes Problem Lesion of lung R91.1 Active 148987343 3.6mm l radha nodule seen on CT in 04/2012. He sees pulmonology, had normal PFT's in 05/2012. He had had another CT of chest 05/2013 which was stable and there were no recommendations for a repeat study. Problem Coronary artery disease I25.10 Active 49901979 He had three-vessel disease diagnosed after an [...] saeed, Plavix, aspirin and statin therapy. His blogs manager has recommended lifelong Plavix. Problem Anxiety disorder F41.9 Active 769219061 Has p eriodic anxiety possibly related to [...] 2018. Problem Gastroesophageal reflux disease K21.9 Active 515613970 He has been on Dexilant since about [...] normal gastric emptying study in 2016. His mainspring reverse winder switched him from Protonix to Zegerid in early 2018 and this was of no benefit. A Doppler ultrasound of his mesenteric arteries in April 2018 was not revealing for significant stenosis. Problem Lumbar spinal stenosis M48.06 Active 88464068 He apparently had a confirmatory MRI in about 2013 at [facility]. He has ongoing issues. He no longer receives physical therapy. He is on gabapentin 600/600/1200 mg on a 3 times a day schedule. Problem History of adenomatous polyp of colon Z86.010 Ac tive 551576024 He had an adenomatous polyp in March 2014 and probably needs a follow-up in 2019. Problem Neuropathic arthritis M14.60 Active 63504891 H e has neuropathic symptoms of his [...] his discomforts. Problem Memory deficit R41.3 Active 897431754 He has been evaluated for memory loss by a neurologist in 2013. His serologic evaluation was negative. I am not an advocate of Namenda or Aricept. He is apparently taking vitamin B12 supplementation despite a normal level in Fall 2013. 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 Problem Hypercholesterolemia E78.00 Active 63113238 On Crestor instead of Lipitor as of 2017 (concerns about myalgias on Lipitor resulted in that switch but it made no difference) and Lovaza therapy . Lipids are controlled with medications as of November 2019. Problem Chronic fatigue R53.82 Active 94413313 TSH and testosterone level were normal in August 2017 and again in February 2020, although his free testosterone level was a bit low. We will try supplementation as of February 2020. Problem Type 2 diabetes mellitus with other specified complication E11.69 Active 60113672 On metformin, Lantus 40 unit s daily, [...] Problem Repetitive rocking movements F98.4 Active 301 35710 I've asked for neurology consultation. Problem Inflammatory arthritis M19.90 Active 9716402 H dimitris has an inflammatory arthritis primarily [...] is on gabapentin. Problem Hypertension I10 Active 14965377 On losarta n, chlorthalidone, spironolactone 3 times a week, and metoprolol. Has no endorgan complications. Blood pressure is optimally controlled by his report of home readings. He had a cough from lisinopril in September 2016. I added spironolactone as of September 2018. Problem Anemia, unspecified type D64.9 Active 3737589 00 He has what appears to be iron deficiency anemia. He will start iron supplementation. I will recheck his labs in March 2020. 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 Had a prostate/rectal examination in November 2017 with the colorectal surgeon I believe, and a colonoscopy in 2012, March 2014 with that provider. Because of his iron deficiency needs a follow-up colonoscopy. Problem Vitamin D deficiency E55.9 Active 45603397 Dukes d a level of 15 in 2011--and was on Drisdol for a period of time. A followup level was 24 in February 2015 and he started nwsi-rdv-ekcafmz supplementation with 2000 units daily. His most recent vitamin D level was 39 at the [place] in December 2018. Problem Erectile dysfunction, unspecified erectile dysfunction typ e N52.9 Active 460769789 He failed PDE-5 inhibitors s o we again recommended MUSE as of April 2018. Apparently Caverject was tried in the past... I started testosterone supplementation with PDE 5 inhibitor supplementation as of February 2020. Problem Dysthymia F34.1 Active 26341176 He has signif icant depression. He is currently on citalopram as of August 2018 and increased the dose to 20 mg daily as of September 2018. He is also seeing a psychiatrist as of August 2018. Problem Lumbago with sciatica, right side M54.41 Active 170708900 Problem Other chronic pain G89.29 Active 61055569 ALLERGIES No Known Allergies ENCOUNTERS from 1945 to 2020-03-17 Encounter Location Date Provider Diagnosis [address] [address] Mar, Bernard Cam IMMUNIZATIONS Vaccine Route Administration Date Status Influenza [...] tablet Orally Once a day Active Pen [place] 1/2" 29G X 12MM bd needles DX: [...] Information RESULTS No Results REASON FOR VISIT Update Demographics - Additional Info MEDICAL (GENERAL) HISTORY Type Description Date Medical [...] deficit Medical History Neuropathic arthritis Medical History terminal operator current use of insulin Medical History Inflammatory [...] Part A and B [address] [facility] [phone] HUAN CORDOVA [place] [address] [address] [place] [address] HUAN CORDOVA [facility] [address] [facility] [address] [phone] HUAN CORDOVA
--- OUTSIDE RECORDS SUMMARY | 2020-03-23 11:56 | CCD ---
Author Author [employer] Organization [employer] Address Unknown Phone Unavailable Care Team Providers Care Dj Instructor Name Role Phone Bernard Cam Unavailable PROBLEMS Type Condition ICD9-CM Code [id number] Code Onset Dates Condition S tatus SNOMED Code Notes Problem Lesion of lung R91.1 Active 552782475 3.6mm l radha nodule seen on CT in 04/2012. He sees pulmonology, had normal PFT's in 05/2012. He had had another CT of chest 05/2013 which was stable and there were no recommendations for a repeat study. Problem Coronary artery disease I25.10 Active 61709568 He had three-vessel disease diagnosed after an [...] saeed, Plavix, aspirin and statin therapy. His animal anatomist has recommended lifelong Plavix. Problem Anxiety disorder F41.9 Active 590101685 Has p eriodic anxiety possibly related to [...] 2018. Problem Gastroesophageal reflux disease K21.9 Active 400424455 He has been on Dexilant since about [...] normal gastric emptying study in 2016. His cane pusher switched him from Protonix to Zegerid in early 2018 and this was of no benefit. A Doppler ultrasound of his mesenteric arteries in April 2018 was not revealing for significant stenosis. Problem Lumbar spinal stenosis M48.06 Active 32052045 He apparently had a confirmatory MRI in about 2013 at [facility]. He has ongoing issues. He no longer receives physical therapy. He is on gabapentin 600/600/1200 mg on a 3 times a day schedule. Problem History of adenomatous polyp of colon Z86.010 Ac tive 573681530 He had an adenomatous polyp in March 2014 and probably needs a follow-up in 2019. Problem Neuropathic arthritis M14.60 Active 47021381 H e has neuropathic symptoms of his [...] his discomforts. Problem Memory deficit R41.3 Active 155316509 He has been evaluated for memory loss by a neurologist in 2013. His serologic evaluation was negative. I am not an advocate of Namenda or Aricept. He is apparently taking vitamin B12 supplementation despite a normal level in Fall 2013. 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 Problem Hypercholesterolemia E78.00 Active 43994203 On Crestor instead of Lipitor as of 2017 (concerns about myalgias on Lipitor resulted in that switch but it made no difference) and Lovaza therapy . Lipids are controlled with medications as of November 2019. Problem Chronic fatigue R53.82 Active 22833960 TSH and testosterone level were normal in August 2017 and again in February 2020, although his free testosterone level was a bit low. We will try supplementation as of February 2020. Problem Type 2 diabetes mellitus with other specified complication E11.69 Active 98055120 On metformin, Lantus 40 unit s daily, [...] Problem Repetitive rocking movements F98.4 Active 301 75351 I've asked for neurology consultation. Problem Inflammatory arthritis M19.90 Active 0457223 H dimitris has an inflammatory arthritis primarily [...] is on gabapentin. Problem Hypertension I10 Active 12483625 On losarta n, chlorthalidone, spironolactone 3 times a week, and metoprolol. Has no endorgan complications. Blood pressure is optimally controlled by his report of home readings. He had a cough from lisinopril in September 2016. I added spironolactone as of September 2018. Problem Anemia, unspecified type D64.9 Active 1046294 00 He has what appears to be iron deficiency anemia. He will start iron supplementation. I will recheck his labs in March 2020. 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 Had a prostate/rectal examination in November 2017 with the colorectal surgeon I believe, and a colonoscopy in 2012, March 2014 with that provider. Because of his iron deficiency needs a follow-up colonoscopy. Problem Vitamin D deficiency E55.9 Active 84306315 Dukes d a level of 15 in 2011--and was on Drisdol for a period of time. A followup level was 24 in February 2015 and he started hqal-gvh-tameexl supplementation with 2000 units daily. His most recent vitamin D level was 39 at the [place] in December 2018. Problem Erectile dysfunction, unspecified erectile dysfunction typ e N52.9 Active 182694295 He failed PDE-5 inhibitors s o we again recommended MUSE as of April 2018. Apparently Caverject was tried in the past... I started testosterone supplementation with PDE 5 inhibitor supplementation as of February 2020. Problem Dysthymia F34.1 Active 64424998 He has signif icant depression. He is currently on citalopram as of August 2018 and increased the dose to 20 mg daily as of September 2018. He is also seeing a psychiatrist as of August 2018. Problem Lumbago with sciatica, right side M54.41 Active 880628094 Problem Other chronic pain G89.29 Active 28583941 ALLERGIES No Known Allergies ENCOUNTERS from 1945 to 2020-03-17 Encounter Location Date Provider Diagnosis [address] [address] Mar, Bernard Cam IMMUNIZATIONS Vaccine Route Administration [...] tablet Orally Once a day Active Pen [place] 1/2" 29G X 12MM bd needles DX: [...] Results REASON FOR VISIT Update Demographics - Personal Info MEDICAL (GENERAL) HISTORY Type Description Date [...] deficit Medical History Neuropathic arthritis Medical History [facility] current use of insulin Medical History Inflammatory [...] Insured Coverage Start Date Coverage End Date [facility] [address] [place] [phone] HUAN CORDOVA MEDICARE Part A and B [address] [facility] [phone] HUAN CORDOVA [place] [address] [address] [place] [address] HUAN CORDOVA
--- OUTSIDE RECORDS SUMMARY | 2020-03-23 11:56 | CCD ---
Author Author [facility] Organization [facility] Address Unknown Phone Unavailable Care Team Providers Care Supervisor Show Operations Name Role Phone Bernard Cam Unavailable PROBLEMS Type Condition ICD9-CM Code [id number] Code Onset Dates Condition S tatus SNOMED Code Notes Problem Lesion of lung R91.1 Active [id number] 3.6mm l radha nodule seen on CT in 04/2012. He sees pulmonology, had normal PFT's in 05/2012. He had had another CT of chest 05/2013 which was stable and there were no recommendations for a repeat study. Problem Coronary artery disease I25.10 Active 81965842 He had three-vessel disease diagnosed after an [...] saeed, Plavix, aspirin and statin therapy. His transition specialist has recommended lifelong Plavix. Problem Anxiety disorder F41.9 Active [id number] Has p eriodic anxiety possibly related to [...] 2018. Problem Gastroesophageal reflux disease K21.9 Active 705151499 He has been on Dexilant since about [...] normal gastric emptying study in 2016. His old testament professor switched him from Protonix to Zegerid in early 2018 and this was of no benefit. A Doppler ultrasound of his mesenteric arteries in April 2018 was not revealing for significant stenosis. Problem Lumbar spinal stenosis M48.06 Active 94338493 He apparently had a confirmatory MRI in about 2013 at [facility]. He has ongoing issues. He no longer receives physical therapy. He is on gabapentin 600/600/1200 mg on a 3 times a day schedule. Problem History of adenomatous polyp of colon Z86.010 Ac tive 158353582 He had an adenomatous polyp in March 2014 and probably needs a follow-up in 2019. Problem Neuropathic arthritis M14.60 Active 77218867 H e has neuropathic symptoms of his [...] his discomforts. Problem Memory deficit R41.3 Active 516614507 He has been evaluated for memory loss by a neurologist in 2013. His serologic evaluation was negative. I am not an advocate of Namenda or Aricept. He is apparently taking vitamin B12 supplementation despite a normal level in Fall 2013. 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 Problem Hypercholesterolemia E78.00 Active 21334617 On Crestor instead of Lipitor as of 2017 (concerns about myalgias on Lipitor resulted in that switch but it made no difference) and Lovaza therapy . Lipids are controlled with medications as of November 2019. Problem Chronic fatigue R53.82 Active 35298106 TSH and testosterone level were normal in August 2017 and again in February 2020, although his free testosterone level was a bit low. We will try supplementation as of February 2020. Problem Type 2 diabetes mellitus with other specified complication E11.69 Active 72258634 On metformin, Lantus 40 unit s daily, [...] 2018, 7% [facility]. His urine microalbumin was negative in November [...] Problem Repetitive rocking movements F98.4 Active 301 89692 I've asked for neurology consultation. Problem Inflammatory arthritis M19.90 Active 8695531 H dimitris has an inflammatory arthritis primarily [...] is on gabapentin. Problem Hypertension I10 Active 62145515 On losarta n, chlorthalidone, spironolactone 3 times a week, and metoprolol. Has no endorgan complications. Blood pressure is optimally controlled by his report of home readings. He had a cough from lisinopril in September 2016. I added spironolactone as of September 2018. Problem Anemia, unspecified type D64.9 Active 8867699 00 He has what appears to be iron deficiency anemia. He will start iron supplementation. I will recheck his labs in March 2020. 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 Had a prostate/rectal examination in November 2017 with the colorectal surgeon I believe, and a colonoscopy in 2012, March 2014 with that provider. Because of his iron deficiency needs a follow-up colonoscopy. Problem Vitamin D deficiency E55.9 Active 34592043 Dukes d a level of 15 in 2011--and was on Drisdol for a period of time. A followup level was 24 in February 2015 and he started rexg-gqx-zybyhpo supplementation with 2000 units daily. His most recent [facility] D [facility] 39 [facility] in [facility] 2018. Problem Erectile dysfunction, unspecified erectile dysfunction typ e N52.9 Active 554414364 He failed PDE-5 inhibitors s o we again recommended MUSE as of April 2018. Apparently Caverject was tried in the past... I started testosterone supplementation with PDE 5 inhibitor supplementation as of February 2020. Problem Dysthymia F34.1 Active 24045597 He has signif icant depression. He is currently on citalopram as of August 2018 and increased the dose to 20 mg daily as of September 2018. He is also seeing a psychiatrist as of August 2018. Problem Lumbago with sciatica, right side M54.41 Active 139501701 Problem Other chronic pain G89.29 Active 55631632 ALLERGIES No Known Allergies ENCOUNTERS from 1945 to 2020-03-01 Encounter Location Date Provider Diagnosis [address] [address] Feb, Bernard Cam IMMUNIZATIONS Vaccine Route Administration Date [...] tablet Orally Once a day Active Pen Adin 1/2" 29G X 12MM bd needles DX: [...] Information RESULTS No Results REASON FOR VISIT PA testosterone 20.25mg/1.25gr (1.62%) gel packet MEDICAL (GENERAL) HISTORY Type Description Date Medical [...] day as needed for 30 day(s) Feb, Insurance Providers Payer Name Payer Address Payer Phone Insured Name Patient Relati onship to Insured Coverage Start Date Coverage End Date [facility] [id number] [facility] 2 [phone] HU[employer] [place] [facility] [address] [place] [address] HU[employer] CORDOVA MEDICARE Part A and B [address] [facility] [phone] HUAN CORDOVA
--- OUTSIDE RECORDS SUMMARY | 2020-03-23 11:56 | CCD ---
Author Author [facility] Organization [facility] Address Unknown Phone Unavailable Care Team Providers Care Public Affairs Officer Name Role Phone Bernard Cam Unavailable PROBLEMS Type Condition ICD9-CM Code KAR87-KT Code Onset Dates Condition S tatus SNOMED Code Notes Problem Vitamin D deficiency E55.9 Active 79460987 Dukes d a level of 15 in 2011--and was on Drisdol for a period of time. A followup level was 24 in February 2015 and he started wpea-uqa-cwavjmj supplementation with 2000 units daily. His most recent vitamin D level was 39 at the [facility] in December 2018. Problem Hypertension I10 Active 51904991 On losarta n, chlorthalidone, spironolactone 3 times a week, and metoprolol. Has no endorgan complications. Blood pressure is optimally controlled. He had a cough from lisinopril in September 2016. I added spironolactone as of September 2018. Problem History of adenomatous polyp of colon Z86.010 [facility] [id number] He had an adenomatous polyp in March 2014 and probably needs a follow-up in 2019. Problem Coronary artery disease I25.10 Active 71452350 He had three-vessel disease diagnosed after an [...] saeed, Plavix, aspirin and statin therapy. His chemical radiation technician has recommended lifelong Plavix. Problem Lesion of lung R91.1 Active 281058495 3.6mm l radha nodule seen on CT in 04/2012. He sees pulmonology, had normal PFT's in 05/2012. He had had another CT of chest 05/2013 which was stable and there were no recommendations for a repeat study. Problem Lumbar spinal stenosis M48.06 Active 28484792 He apparently had a confirmatory MRI in about [address] [facility]. He has ongoing issues. He no longer receives physical therapy. Problem Anxiety disorder F41.9 Active 982194608 Has p eriodic anxiety possibly related to [facility] experience. He has the past seen [...] 2018. Problem Gastroesophageal reflux disease K21.9 Active 534410777 On Protonix (barbara) in the past, taken daily. No benefit to twice daily therapy. Patient has ongoing discomfort in that he has ongoing postprandial discomfort only partially relieved with Gaviscon. Carafate was of no benefit. He had his most recent endoscopy in April 2018 which showed some reactive gastropathy. He had a normal gastric emptying study in 2016. His casting carrier switched him from Protonix to Zegerid in early 2018 and this was of no benefit. A Doppler ultrasound of his mesenteric arteries in April 2018 was not revealing for significant stenosis. We will try a month's worth of Dexilant instead of Protonix as of January 2019. 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 Problem Hypercholesterolemia E78.00 Active 08778861 On Crestor instead of Lipitor as of 2017 (concerns about myalgias on Lipitor resulted in that switch but it made no difference) and fish oil therapy . Lipids are controlled with medications as of November 2019. Problem Lumbago with sciatica, right side M54.41 Active 888630334 Problem Neuropathic arthritis M14.60 Active 92096202 H e has neuropathic symptoms of his [...] discomforts. Problem Other chronic pain G89.29 Active 40113714 Problem Memory deficit R41.3 Active 788799043 He has been evaluated for memory loss by a neurologist in 2013. His serologic evaluation was negative. I am not an advocate of Namenda or Aricept. He is apparently taking vitamin B12 supplementation despite a normal level in Fall 2013. 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 Problem Hemorrhoids K64.9 Active 71134163 Saw surgeon in June 2015 and again in Fall 2017. Had a prostate/rectal examination in November 2017 with the colorectal surgeon I believe, and a colonoscopy in 2012, March 2014 with that provider. Problem Chronic fatigue R53.82 Active 50838664 TSH and testosterone level were normal in August 2017. Problem Type 2 diabetes mellitus with other specified complication E11.69 Active 93203700 On metformin, Lantus and sli ding scale insulin therapy, Amaryl, Victoza (substituted for Byetta in August 2009) stopped in late 2010. Last HgbA1c was 6.2% in November 2019, [facility], 7.2% in September 2018, 7.8% in April 2018, 7% in November 2017 at the [facility]. last microalbumin was negative in November 2019; [...] unspecified erectile dysfunction typ e N52.9 Active 397440120 He failed PDE-5 inhibitors s o we again recommended MUSE as of April 2018. Apparently Caverject was tried in the past... Problem Dysthymia F34.1 Active 51497049 He has signif icant depression. He is currently on citalopram as of August 2018 and increased the dose to 20 mg daily as of September 2018. He is also seeing a psychiatrist as of August 2018. ALLERGIES No Known Allergies ENCOUNTERS from 1945 to 2020-01-28 Encounter Location Date Provider Diagnosis [address] [address] 10 Jan, 2020 Bernard Dorina Type 2 diabetes mellitus with other spec ified complication E11.69 ; Coronary artery disease I25.10 ; Gastroesophageal reflux disease K21.9 ; Hypertension I10 ; Hemorrhoids K64.9 ; Anxiety disorder F41.9 ; Hypercholesterolemia E78.00 ; Lesion of lung R91.1 ; Vitamin D deficiency E55.9 ; Inflammatory arthritis M19.90 ; Lumbar spinal stenosis M48.06 ; Memory deficit R41.3 ; Neuropathic arthritis M14.60 ; Chronic fatigue R53.82 ; History of adenomatous polyp of colon Z86.010 ; 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 Yes Have you ever had an STD? No with Women only Drug and Alcohol Question Answer Notes Interpretation: No problems reported Total Score: 0 Alcohol Screening: Question Answer Notes Did you [...] Every Sun/Sun/Sun for 90 day(s) Sep, Active Hydrocodone-Acetaminophen 5-325 [...] multiclick lancets 3-4 times a day Active Argyle 1000 MCG 1 pellet Urethral insertion Daily as needed for 30 day(s) Dec, Active Cipro 500 MG 1 tablet Orally every 12 hrs for 1 days 2019 Active Blood Glucose Test - Accucheck test strips In Vitro 3-4 times a day Active Dexilant 60 MG 1 capsule Orally Once a day for 90 Active Pen Gifford 1/2" 29G X 12MM bd needles DX: [...] Information RESULTS No Results REASON FOR VISIT Lab orders MEDICAL (GENERAL) HISTORY Type Description Date Medical [...] deficit Medical History Neuropathic arthritis Medical History retirement current use of insulin Medical History Inflammatory [...] Notes Treatment Notes Treatm ent Clinical Notes Jan, Type 2 diabetes mellitus wit h other specified complication (ICD-10 - E11.69) On metformin, Lantus and sliding scale i nsulin therapy, Amaryl, Victoza (substituted for Byetta in August 2009) stopped in late 2010. Last HgbA1c was 6.8% [facility] the [facility] in December 2018, 7.2% in September 2018, 7.8% in April 2018, 7% in November 2017 at the [facility]. last microalbumin was negative in April 2018; he is on an ARB nevertheless. There [...] his insurance company has denied that apparently. Diabetes control is more reasonable since he has obtained more robust needles for injection in early 2018. He has a diabetic neuropathy. Jan, Coronary artery disease (ICD-10 - I25.10 ) [...] saeed, Plavix, aspirin and statin therapy. His chemical radiation technician has recommended lifelong Plavix. Jan, Gastroesophageal reflux disease (ICD-10 - K21.9) On Protonix (barbara) in the past, taken daily. No benefit to twice daily therapy. Patient has ongoing discomfort in that he has ongoing postprandial discomfort only partially relieved with Gaviscon. Carafate was of no benefit. He had his most recent endoscopy in April 2018 which showed some reactive gastropathy. He had a normal gastric emptying study in 2016. His casting carrier switched him from Protonix to Zegerid in early 2018 and this was of no benefit. A Doppler ultrasound of his mesenteric arteries in April 2018 was not revealing for significant stenosis. We will try a month's worth of Dexilant instead of Protonix as of January 2019. Jan, Hypertension (ICD-10 - I10) On losartan, chlorthalidone, spironolactone 3 times a week, and metoprolol. Has no endorgan complications. Blood pressure is optimally controlled. He had a cough from lisinopril in September 2016. I have added spironolactone as of September 2018. Jan, Hemorrhoids (ICD-10 - K64.9) Saw surgeon in June 2015 and again in Fall 2017. Had a prostate/rectal examination in November 2017 with the colorectal surgeon I believe, and a colonoscopy in 2012, March 2014 with that provider. Jan, Anxiety disorder (ICD-10 - F41.9) Has pe riodic anxiety possibly related to [facility] experience. He has the past seen [...] to 20 mg daily in September 2018. Jan, Hypercholesterolemia (ICD-10 - E78.00) O n Crestor instead of Lipitor as of 2017 (concerns about myalgias on Lipitor resulted in that switch but it made no difference) and fish oil therapy . Lipids are controlled with [facility]. Jan, Lesion of lung (ICD-10 - R91.1) 3.6mm umm ng nodule seen on CT in 04/2012. He sees pulmonology, had normal PFT's in 05/2012. He had had another CT of chest 05/2013 which was stable and there were no recommendations for a repeat study. Jan, Vitamin D deficiency (ICD-10 - E55.9) Dukes d a level of 15 in 2011--and was on Drisdol for a period of time. A followup level was 24 in February 2015 and he started zsev-thj-kjrmshj supplementation with 2000 units daily. His most recent vitamin D level was 39 at the [facility] in December 2018. Jan, Inflammatory arthritis (ICD-10 - M19.90) He has an inflammatory arthritis primarily affecting his right hand greater than left, and he also has knee and low back pain as well as various other arthralgias. He has had rheumatologic consultations dating back to 2012 through 2013 and was tried on Plaquenil, [...] Inflammatory markers were negative as of April 2018. Jan, Lumbar spinal stenosis (ICD-10 - M48.06) He apparently had a confirmatory MRI in about 2013 at [facility]. He has ongoing issues. He no longer receives physical therapy. Jan, Memory deficit (ICD-10 - R41.3) He has b een evaluated for memory loss by a neurologist in 2013. His serologic evaluation was negative. I am not an advocate of Namenda or Aricept. He is apparently taking vitamin B12 supplementation despite a normal level in Fall 2013. 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 Jan, Neuropathic arthritis (ICD-10 - M14.60) He has [...] may have palliated some of his discomforts. Jan, Chronic fatigue (ICD-10 - R53.82) TSH an d testosterone level were normal in August 2017. Jan, History of adenomatous polyp of colon (I CD-10 - Z86.010) He had an adenomatous polyp in March 2014 and probably needs a follow-up in 2019. Jan, retirement current use of insulin (ICD-10 - Z79.4 ) Jan, Erectile dysfunction, unspec ified erectile dysfunction type (ICD-10 - N52.9) He failed PDE-5 inhibitors so we again r ecommended MUSE as of April 2018. Apparently Caverject was tried in the past... Jan, Dysthymia (ICD-10 - F34.1) He has signif icant depression. He is currently on citalopram as of August 2018 and increased the dose to 20 mg daily as of September 2018. He is also seeing a psychiatrist as of August 2018. 10 Jan, 2020 Lumbago with sciatica, right side (ICD-10 - M54. 41) Jan, Other chronic pain (ICD-10 - G89.29) PLAN OF TREATMENT Medication Medication Name Sig Start Date Stop Date Cipro 500 MG 1 tablet Orally every 12 hrs for 1 days Apr, Lantus SoloStar 100 UNIT/ML 40 units Subcutaneous Once daily for 90 day(s) Jun, Pen Gifford 1/2" 29G X 12MM bd needles DX: E11.9 Four times daily with insulin for 50 Dexilant 60 MG 1 capsule Orally Once a day for 90 Future Test Test Name Order Date CBC with Differential [id number] Comprehensive Metabolic Profile (CMP) [id number] MAGNESIUM LEVEL [id number] TESTOSTERONE FREE & TOTAL [id number] HEMOGLOBIN A1c [id number] TSH [id number] Next Appt Details Provider Name:Bernard Cam 2020-02-24 01 :45:00 PM, [address] [place], [address], Insurance Providers Payer Name Payer Address Payer Phone Insured Name Patient Relati onship to Insured Coverage Start Date Coverage End Date [facility] [address] [facility] 2 [phone] [employer] [place] [employer] [address] [facility] [id number] HUAN CORDOVA MEDICARE Part A and B [address] [facility] [address] [phone] HUAN CORDOVA
--- OUTSIDE RECORDS SUMMARY | 2020-03-23 11:57 | CCD | Continuity of Care Document ---
Author Author Km JIMENEZ [facility] Organization Unknown Address [address], [address] [place] [address] Phone [phone] Care Team Providers Care Adzing And Boring Machine Operator Name Role Phone Bernard Cam MD AUT[facility] [phone] Yosi Farah MD AUTM [phone] Jovany Nichols MD AUTM [phone] Quynh Amezcua MD AUTM [phone] Problems Active Problems Provider Date Coronary arteriosclerosis Yosi Farah MD Onset: 012 Old myocardial infarction Yosi Farah MD Onset: 012 Patient post percutaneous transluminal coronary angioplasty Yosi Farah MD Onset: 10/10/2011 Benign hypertensive heart disease without congestive h eart failure Yosi Farah MD Onset: 10/10/2011 Electrocardiogram abnormal Yosi Farah MD Onset: 2011 Pure hypercholesterolemia Yosi Farah MD Onset: 012 Obesity Tamara Price PA-C Onset: 07/31/2013 Dietary management surveillance Tamara Price PA-C Onset: 02/12/2017 Social History Type Date Description Comments Sex Unknown ETOH Use Consumes Liquor up to 2 shots wh isky once every 2 months Tobacco Use Start: Unknown End: Unknown Patient is a former smoker quit in 2010, 1.5 PPD for 50 years Smoking Status Reviewed: 07/24/19 Patient is a former smoker qu it in 2010, 1.5 PPD for 50 years Exercise Type/Frequency Does yardwork sporadical ly Exercise Limitations Joint Pain knees, hips and shoulders Exercise Limitations Back Pain Exercise Limitations Neuropathy hands and f eet Allergies, Adverse Reactions, Alerts Active Allergies Reaction Severity Comments Date NKDA 05/23/2011 Bee Sting anaphylaxis, facial swelling 10/12/2011 Medications Active Medications SIG Qnty Indications Ordering Provide r Date Spironolactone 25mg Tablets 1 by mouth M,W,F Bernard Cam MD 01/21/2019 Citalopram Hydrobromide 20mg Table ts 1 by mouth every day Unknown 01/21/2019 Tamsulosin HCL 0.4mg Capsules 1 by mouth every day Unknown 08/19/2018 Loratadine 10mg Capsules 1 by mouth every day Unknown 08/19/2018 Lantus 100Unit/ML Solution Flex pen 40 units every am Bernard Cam MD 02/18/2018 Rosuvastatin Calcium 20mg Tablets 1 by mouth every night at bedtime 90tabs I25.10 Yosi Farah MD 08/17/2017 E78.00 Gabapentin 400mg Capsules 1 by mouth three times a day Unknown 08/16/2017 Vitamin B-12 5000mcg Tablets Dispe rs 1 by mouth every day Unknown 02/19/2017 Vitamin D 2000Unit Tablets 1 by mouth every day Unknown 02/19/2017 Gaviscon 80-14.2mg Chewtabs 1 by mouth as needed Unknown 02/19/2017 Hydrocodone-Acetaminophen 5-500mg Tablets 1 by mouth every 4 hours as needed Jovany Nichols MD 02/19/[address] 1 by mouth twice every day Bernard Cam MD 02/19/2017 Fluticasone Propionate 50mcg/Act Suspension 1 spray each nostril daily as needed Bernard Rabago MD 02/19/2017 [place] 3 1000mg Capsules 2 by mouth twice per day Unknown 02/19/2017 Losartan Potassium 100mg Tablets 1 by mouth every night at bedtime Bernard Cam MD Metoprolol Succinate ER 25mg Tablets ER 24HR 1 by mouth every day Unknown 017 Novolog Flexpen 100U nit/ML Solution Pen-Inject sliding scale as directed Unknown Magnesium Oxide 400(240Mg) mg Tabl ets 1 by mouth once daily 180tabs Unknown 02/01/2014 Aspirin 81mg Chewtabs 1 po qd Yosi Farah MD 07/19/2012 Chlorthalidone 25mg Tablets 1/2 PO qd 45tabs Yosi Farah MD 01/08/2012 Miralax 3350NF Powder 1 tbsp qam, bid Bernard Cam MD 12/14/2011 Nitrostat 0.4mg Tablets Sub 1 sl every 5min x3 as needed for chest pain 25tabs I25.10 Yosi Farah MD 10/10/2011 Plavix 75mg Tablets 1 po qd 14tabs Yosi Farah MD 06/08/2011 Metformin HCL 1000mg Tablets 1 po bid Bernard Cam MD 05/23/2011 Immunizations Description No Information Available Vital Signs Date Vital Result Comment 07/24/2019 9:35am Weight 200.00 lb Home Weight 192lb home weight Height 67.5 inches 5'7.50" BMI (Body Mass Index) 30.9 kg/m2 Heart Rate 76 /min Regular Respiratory Rate 16 /min BP Systolic Right Arm 136 mmHg sitting, regular c uff BP Diastolic Right Arm 76 mmHg sitting, regular cuff BP Systolic Left Arm 136 mmHg sitting BP Diastolic Left Arm 72 mmHg sitting 01/22/2019 9:31am Weight 205.00 lb Home Weight 197lb home weight Height 67.5 inches 5'7.50" BMI (Body Mass Index) 31.6 kg/m2 Heart Rate 76 /min Regular Respiratory Rate 16 /min BP Systolic Right Arm 128 mmHg Sitting, regular c uff BP Diastolic Right Arm 68 mmHg Sitting, regular cuff BP Systolic Left Arm 134 mmHg Sitting BP Diastolic Left Arm 70 mmHg Sitting Results Test Acquired Date Facility Test Result H/L Range Note Hemoglobin A1c 11/12/2019 [facility] - not interfaced (315)- - Hemoglobin A1c 6.2 CMP 11/12/2019 [facility] - not interfaced (315)- - Albumin Serum/Plasma 4.1 Alt - SGPT 46 Calcium Ser/Plasma Mass/Vol 8.9 Carbon Dioxide Ser/Plasm 29 Chloride Serum/Plasma 95 Alkaline Phosphatase 48 Potassium 4.3 Protein Total 7.3 Sodium 128 Ast - Sgot 39 BUN - Urea Nitrogen 9 Glucose 55 Low 70-100 Creatinine For GFR 0.75 Lipid Profile/Cardiac Risk Pro 11/12/2019 [facility] - not interfaced (315)- - Triglycerides 196 High <150 Cholesterol 97 <200 HDL 30 Low >40.0 LDL Cholesterol 28 Chol/HDL Ratio 3.233 <5 CBC without Differential 11/12/2019 [facility] - not inter faced (315)- - White Blood Count 5.5 4.0-10.0 Red Blood Count 3.93 Low 4.30-6.10 Platelets 314 150-450 Hemoglobin 12.6 Hematocrit 38.6 Procedures Date Code Description Status 07/24/2019 99701 ECG 12-Lead Completed Medical Devices Description No Information Available Encounters Type Date Location Provider Dx Diagnosis Office Visit 07/24/2019 9:45a Main Office Tamara Price PA-C I25.1 0 Athscl heart disease of [place] coronary artery w/o ang pctrs Z95.5 Presence of coronary angiopl asty implant and graft R94.31 Abnormal electrocardiogram [ ECG] [EKG] I11.9 Hypertensive heart disease w ithout heart failure E78.00 Pure hypercholesterolemia, u nspecified Z71.3 Dietary counseling and surve illance Assessments Date Code Description Provider 07/24/2019 I25.10 Atherosclerotic heart disease of [place] coronary artery with Tamara Price PA-C 07/24/2019 Z95.5 Presence of coronary angioplasty implant and graft Tamara Price PA-C 07/24/2019 R94.31 Abnormal electrocardiogram [ECG] [EKG] Tamara Price PA-C 07/24/2019 I11.9 Hypertensive heart disease witho ut heart failure Tamara Price PA-C 07/24/2019 E78.00 Pure hypercholesterolemia, unspe cified Tamara Price PA-C 07/24/2019 Z71.3 Dietary counseling and surveilla nce Tamara Price PA-C Plan of Treatment Future Appointment(s):* 01/26/2020 9:45 am - Tamara Price PA-C at Main Office 07/24/2019 - Tamara Price PA-C* I25.10 Atherosclerotic heart disease of [place] coronary artery with * Z95.5 Presence of coronary angioplasty implant and graft * R94.31 Abnormal electrocardiogram [ECG] [EKG] * I11.9 Hypertensive heart disease without heart failure * E78.00 Pure hypercholesterolemia, unspecified * Z71.3 Dietary counseling and surveillance* Recommendations:* Follow a low fat/low cholesterol diet and do as much aerobic exercise as you can tolerate. * All * Follow up:* 6 month follow up. Functional Status Functional Condition Comment Date Status Independent with all ADL's Activ e Mental Status Description No Information Available Referrals Description No Information Available
--- OUTSIDE RECORDS SUMMARY | 2020-03-23 11:57 | CCD | Continuity of Care Document ---
Author Author Km WINN M.D. Organization Unknown Address [address] [place] [address] Phone [phone] Care Team Providers Care Head Kiln Operator Name Role Phone Bernard Cam MD [facility] [phone] Problems Active Problems Provider Date Essential hypertension Onset: 12/02/2019 Social History Type Date Description Comments Sex Unknown ETOH Use Occasionally consumes alcohol Tobacco Use Start: Unknown End: Unknown Patient is a former smoker Quit approximately 2009 Recreational Drug Use Denies Drug Use Smoking Status Reviewed: 12/08/19 Patient is a former smoker Qu it approximately 2009 Allergies, Adverse Reactions, Alerts Active Allergies Reaction Severity Comments Date Dexilant Constipation 12/08/2019 Lisinopril cough 12/08/2019 Atorvastatin muscle pain 12/08/2019 Buspirone difficlty sleeping 0 Medications Active Medications SIG Qnty Indications Ordering Provide r Date Fluticasone Propionate 50mcg/Act Suspension 1 sprays to each nostril twice a day 16gm Patr sridhar Winn M.D. 12/08/2019 Azelastine HCL (Nasal) 0.1% Soluti on 1 spray in each nostril twice a day as directed 30ml Pa maria teresa Winn M.D. 12/08/2019 Loratadine H90.3 Unknown Pseudoephedrine HCL H90.3 Unknown Super B-Complex H90.3 Unknown 0 Vitamin B12 H90.3 Unknown Vitamin D H90.3 Unknown Magnesium Oxide H90.3 Unknown 0 Nitrostat Unknown Hydrocodone Bitartrate/Acetaminophen 5-325mg Tablets Unknown Miralax Unknown Gabapentin Unknown Chlorthalidone Unknown Novolog Flexpen Unknown 0 Lantus Unknown Plavix Unknown Metoprolol Succinate ER Unknown 0 Losartan Potassium Unknown Aspirin 81 Unknown [id number]-6-[id number] Ethyl Esters Unknown Rosuvastatin Calcium Unknown Dexilant 60mg Capsules DR Unknown Metformin HCL Unknown Citalopram Hydrobromide Unknown 0 Spironolactone Unknown Immunizations Description No Information Available Vital Signs Description No Information Available Results Description No Information Available Procedures Date Code Description Status 12/08/2019 05717 Tympanometry Completed 12/08/2019 18118 Audiometry Threshold Evaluation & Speech Recognition Completed Medical Devices Description No Information Available Encounters Type Date Location Provider Dx Diagnosis Office Visit 12/08/2019 2:00p [facility], [facility] maria teresa Winn M.D. H90.3 Sensorineural hearing loss, bilateral H91.92 Unspecified hearing loss, le ft ear H92.02 Otalgia, left ear J30.89 Other allergic rhinitis J34.3 Hypertrophy of nasal turbina sravanthi R09.81 Nasal congestion J34.2 Deviated nasal septum Assessments Date Code Description Provider 12/08/2019 H90.3 Sensorineural hearing loss, bila teral Amilcar Winn M.D. 12/08/2019 H90.3 Sensorineural hearing loss, bila teral Saray Saenz, [facility] 12/08/2019 H91.92 Unspecified hearing loss, left e ar Amilcar Winn M.D. 12/08/2019 H92.02 Otalgia, left ear Amilcar yu M.D. 12/08/2019 J30.89 Other allergic rhinitis Amilcar Winn M.D. 12/08/2019 J34.3 Hypertrophy of nasal turbinates Amilcar Winn M.D. 12/08/2019 R09.81 Nasal congestion Amilcar curiel M.D. 12/08/2019 J34.2 Deviated nasal septum Amilcar Winn M.D. 12/08/2019 H90.3 Sensorineural hearing loss, bila teral Amilcar Winn M.D. Plan of Treatment Future Appointment(s):* 10/08/2020 2:45 pm - [facility] * 10/08/2020 2:00 pm - Saray Saenz CCC-A at [facility] Functional Status Description No Information Available Mental Status Description No Information Available Referrals Refer to Dr Reason for Referral Status Appt Date Amilcar Winn M.D. no auth needed for any insurances-[facility] primary Closed [address] [facility] [address] [id number] [phone]
--- OUTSIDE RECORDS SUMMARY | 2020-03-23 11:57 | CCD | Continuity of Care Document ---
Author Author Km CLINTON PA-C Organization Unknown Address [address], [place] [address] Phone [phone] Care Team Providers Care Upholsterer [employer]ine [employer]se Name Role Phone Bernard Cam MD [facility] [phone] Yosi aFrah MD [facility] [phone] Jovany Nichols MD [facility] [phone] Quynh Amezcua MD AUT[facility] [phone] Melvin Butt MD AUTM [phone] Problems Active Problems Provider Date Coronary arteriosclerosis Yosi Farah MD Onset: 012 Old myocardial infarction Yosi Farah MD Onset: 012 Patient post percutaneous transluminal coronary angioplasty Yosi Farah MD Onset: 10/10/2011 Benign hypertensive heart disease without congestive h eart failure Yosi Farah MD Onset: 10/10/2011 Electrocardiogram abnormal Yosi Farah MD Onset: 2011 Pure hypercholesterolemia Yosi Farah MD Onset: 012 Obesity Tamara Clinton PA-C Onset: 07/31/2013 Dietary management surveillance Tamara Clinton PA-C Onset: 02/12/2017 Social History Type Date Description Comments Sex Unknown ETOH Use Consumes Liquor up to 2 shots wh isky once every 2 months Tobacco Use Start: Unknown End: Unknown Patient is a former smoker quit in 2010, 1.5 PPD for 50 years Smoking Status Reviewed: 01/26/20 Patient is a former smoker qu it [...] SIG Qnty Indications Ordering Provide r Date Lantus Solostar 100U nit/ML Solution Pen-Inject as directed by primary Bernard Cam MD 1 03/26/2019 Gabapentin 600mg Tablets 1 by mouth twice times a day Bernard Cam MD 01/25/2020 Hydrocodone-Acetaminophen 5-325mg Tablets 1 by mouth every 4 hours as needed Socorro Butt MD 01/25/2020 Vitamin B-12 1000mcg Tablets 1 by mouth twice every day Unknown 01/25/[address] 1 by mouth every day Melvin Butt MD 01/25/2020 Gabapentin 800mg Tablets 1 by mouth once daily at bedtime Melvin Butt MD 01/25/2020 Super B Complex Maxi Tablets 1 by mouth daily Unknown 01/25/2020 Pseudoephedrine HCL ER 120mg Tablets ER 12HR 1 by mouth daily as needed for allergy season Unknown 01/25/2020 Spironolactone 25mg Tablets 1 by mouth M,W,F Bernard Cam MD 01/21/2019 Citalopram Hydrobromide 20mg Table ts 1 by mouth every day Unknown 01/21/2019 Loratadine 10mg Capsules 1 by mouth every day Unknown 08/19/2018 Rosuvastatin Calcium 20mg Tablets 1 by mouth every night at bedtime 90tabs I25.10 Yosi Farah MD 08/17/2017 E78.00 Vitamin D 2000Unit Tablets 1 by mouth every day Unknown 02/19/2017 Gaviscon 80-14.2mg Chewtabs 1 by mouth as needed Unknown 02/19/2017 Fluticasone Propionate 50mcg/Act Suspension 1 spray each nostril daily as needed Bernard Rabago MD 02/19/2017 [place] 3 1000mg Capsules 2 by mouth twice [...] Available Vital Signs Date Vital Result Comment 01/26/2020 9:35am Weight 201.00 lb Home Weight 190lb Height 67.5 inches 5'7.50" BMI (Body Mass Index) 31.0 kg/m2 Heart Rate 76 /min Regular Respiratory Rate 16 /min BP Systolic Right Arm 136 mmHg sitting, regular c uff BP Diastolic Right Arm 76 mmHg sitting, regular cuff BP Systolic Left Arm 136 mmHg sitting BP Diastolic Left Arm 72 mmHg sitting 07/24/2019 9:35am Weight 200.00 lb Home Weight 192lb home weight Height 67.5 inches 5'7.50" BMI (Body Mass Index) 30.9 kg/m2 Heart Rate 76 /min Regular Respiratory Rate 16 /min BP Systolic Right Arm 136 mmHg sitting, regular c uff BP Diastolic Right Arm 76 mmHg sitting, regular cuff BP Systolic Left Arm 136 mmHg sitting BP Diastolic Left Arm 72 mmHg sitting Results Test Acquired Date Facility Test Result H/L Range Note Hemoglobin A1c 11/12/2019 [facility] - not interfaced (315)- - Hemoglobin A1c 6.2 CMP 11/12/2019 [facility] - not interfaced (315)- - Albumin Serum/Plasma 4.1 Alt - SGPT 46 Calcium Ser/Plasma Mass/Vol 8.9 Carbon Dioxide Ser/Plasm 29 Chloride Serum/Plasma 95 Alkaline Phosphatase 48 Potassium 4.3 Protein Total 7.3 Sodium 128 Ast - Sgot 39 BUN - Urea Nitrogen 9 Glucose 55 Low 70-100 Creatinine For GFR 0.75 Lipid Profile/Cardiac Risk Pro 11/12/2019 [facility] - not interfaced (315)- - Triglycerides 196 High <150 Cholesterol 97 <200 HDL 30 Low >40.0 LDL Cholesterol 28 Chol/HDL Ratio 3.233 <5 CBC without Differential 11/12/2019 [facility] - not inter faced (315)- - White Blood Count 5.5 4.0-10.0 Red Blood Count 3.93 Low 4.30-6.10 Platelets 314 150-450 Hemoglobin 12.6 Hematocrit 38.6 Procedures Date Code Description Status 01/26/2020 01160 ECG 12-Lead Completed Medical Devices Description No Information Available Encounters Type Date Location Provider Dx Diagnosis Office Visit 01/26/2020 9:45a Main Office Tamara Clinton PA-C I25.1 0 Athscl heart disease of [place] coronary artery w/o ang pctrs Z95.5 Presence of coronary angiopl asty implant and graft R94.31 Abnormal electrocardiogram [ ECG] [EKG] I11.9 Hypertensive heart disease w ithout heart failure E78.00 Pure hypercholesterolemia, u nspecified Z71.3 Dietary counseling and surve illance Assessments Date Code Description Provider 01/26/2020 I25.10 Atherosclerotic heart disease of [place] coronary artery with Tamara Clinton PA-C 01/26/2020 Z95.5 Presence of coronary angioplasty implant and graft Tamara Clinton PA-C 01/26/2020 R94.31 Abnormal electrocardiogram [ECG] [EKG] Tamara Clinton PA-C 01/26/2020 I11.9 Hypertensive heart disease witho ut heart failure Tamara Clinton PA-C 01/26/2020 E78.00 Pure hypercholesterolemia, unspe cified Tamara Clinton PA-C 01/26/2020 Z71.3 Dietary counseling and surveilla nce Tamara Clinton PA-C Plan of Treatment Future Appointment(s):* 07/28/2020 8:45 am - Tamara Clinton PA-C at Main Office 01/26/2020 - Tamara Clinton PA-C* I25.10 Atherosclerotic heart disease of [place] coronary artery with * Z95.5 Presence of [...]
--- OUTSIDE RECORDS SUMMARY | 2020-03-23 11:58 | CCD ---
Author Author [facility] Organization [facility] Address Unknown Phone Unavailable Care Team Providers Care Snapper On Name Role Phone Madison Price PA Unavailable Unavailable Symenow, Madison Mcdonald PA Unavailable Unavailable Symenow, Madison Mcdonald PA Unavailable Unavailable Symenow, Madison Mcdonald PA Unavailable Unavailable Symenow, Madison Mcdonald PA Unavailable Unavailable Symenow, Madison Mcdonald PA Unavailable Unavailable Symenow, Madison Mcdonald PA Unavailable Unavailable Symenow, Madison Mcdonald PA Unavailable Unavailable Symenow, Madison Barre PA Unavailable Unavailable Symenow, Madison Mcdonald PA Unavailable Unavailable Symenow, Madison Tamara PA Unavailable Unavailable Symenow, Madison Tamara PA Unavailable Unavailable Symenow, Madison Tamara PA Unavailable Unavailable Symenow, Madison Tamara PA Unavailable Unavailable Symenow, Madison Tamara PA Unavailable Unavailable Symenow, Madison Tamara PA Unavailable Unavailable Symenow, Madison Tamara PA Unavailable Unavailable Symenow, Madison Tamara PA Unavailable Unavailable Symenow, Madison Tamara PA Unavailable Unavailable Symenow, Madison Tamara PA Unavailable Unavailable Symenow, Madison Tamara PA Unavailable Unavailable Symenow, Madison Tamara PA Unavailable Unavailable Symenow, Madison Tamara PA Unavailable Unavailable Symenow, Madison Tamara PA Unavailable Unavailable Symenow, Madison Tamara PA Unavailable Unavailable Symenow, Madison Tamara PA Unavailable Unavailable Symenow, Madison Tamara PA Unavailable Unavailable Symenow, Madison Tamara PA Unavailable Unavailable Symenow, Madison Tamara PA Unavailable Unavailable Symenow, Madison Tamara PA Unavailable Unavailable Symenow, Madison Tamara PA Unavailable Unavailable Symenow, Madison Tamara PA Unavailable Unavailable Symenow, Madison Tamara PA Unavailable Unavailable Symenow, Madison Tamara PA Unavailable Unavailable Symenow, Madison Tamara PA Unavailable Unavailable Symenow, Madison Tamara PA Unavailable Unavailable Namrata Naik MD Unavailable Unavailable Namrata Naik MD Unavailable Unavailable Namrata Naik MD Unavailable Unavailable Namrata Naik MD Unavailable Unavailable Namrata Naik MD Unavailable Unavailable Namrata Naik MD Unavailable Unavailable Namrata Naik MD Unavailable Unavailable Namrata Naik MD Unavailable Unavailable Namrata Naik MD Unavailable Unavailable Namrata Naik MD Unavailable Unavailable Namrata Naik MD Unavailable Unavailable Namrata Naik MD Unavailable Unavailable Namrata Naik MD Unavailable Unavailable Namrata Naik MD Unavailable Unavailable Namrata Naik MD Unavailable Unavailable Namrata Naik MD Unavailable Unavailable Namrata Naik MD Unavailable Unavailable Namrata Naik MD Unavailable Unavailable Namrata Naik MD Unavailable Unavailable Namrata Naik MD Unavailable Unavailable Namrata Naik MD Unavailable Unavailable Namrata Naik MD Unavailable Unavailable Namrata Naik MD Unavailable Unavailable Namrata Naik MD Unavailable Unavailable Namrata Naik MD Unavailable Unavailable Namrata Naik MD Unavailable Unavailable Namrata Naik MD Unavailable Unavailable Namrata Naik MD Unavailable Unavailable Namrata Naik MD Unavailable Unavailable Namrata Naik MD Unavailable Unavailable Namrata Naik MD Unavailable Unavailable Namrata Naik MD Unavailable Unavailable Namrata Naik MD Unavailable Unavailable Namrata Naik MD Unavailable Unavailable ChilesNamrata MD Unavailable Unavailable RupertsNamrata MD Unavailable Unavailable ChilesNamrata MD Unavailable Unavailable ChilesNamrata MD Unavailable Unavailable ChilesNamrata MD Unavailable Unavailable ChilesNamrata MD Unavailable Unavailable RupertsNamrata MD Unavailable Unavailable ChilesNamrata MD Unavailable Unavailable ChilesNamrata MD Unavailable Unavailable ChilesNamrata MD Unavailable Unavailable ChilesNamrata MD Unavailable Unavailable ChilesNamrata MD Unavailable Unavailable ChilesNamrata MD Unavailable Unavailable RupertsNamrata MD Unavailable Unavailable ChilesNamrata MD Unavailable Unavailable ChilesNamrata MD Unavailable Unavailable ChilesNamrata MD Unavailable Unavailable ChilesNamrata MD Unavailable Unavailable ChilesNamrata MD Unavailable Unavailable ChilesNamrata MD Unavailable Unavailable ChilesNamrata MD Unavailable Unavailable ChilesNamrata MD Unavailable Unavailable ChilesNamrata MD Unavailable Unavailable ChilesNamrata MD Unavailable Unavailable ChilesNamrata MD Unavailable Unavailable RupertsNamrata MD Unavailable Unavailable RupertsNamrata MD Unavailable Unavailable RupertsNamrata MD Unavailable Unavailable RupertsNamrata MD Unavailable Unavailable RupertsNamrata MD Unavailable Unavailable RupertsNamrata MD Unavailable Unavailable RupertsNamrata MD Unavailable Unavailable RupertsNamrata MD Unavailable Unavailable RupertsNamrata MD Unavailable Unavailable RupertsNamrata MD Unavailable Unavailable RupertsNamraat MD Unavailable Unavailable RupertsNamrata MD Unavailable Unavailable RupertsNamrata MD Unavailable Unavailable RupertsNamrata MD Unavailable Unavailable RupertsNamrata MD Unavailable Unavailable RupertsNamrata MD Unavailable Unavailable RupertsNamrata MD Unavailable Unavailable RupertsNamrata MD Unavailable Unavailable RupertsNamrata MD Unavailable Unavailable RupertsNamrata MD Unavailable Unavailable RupertsNamrata MD Unavailable Unavailable Namrata Naik MD Unavailable Unavailable Kathy PICKARD MD Unavailable Unavailable Kathy PICKARD MD Unavailable Unavailable Kathy PICKARD MD Unavailable Unavailable Kathy PICKARD MD Unavailable Unavailable Kathy PICKARD MD Unavailable Unavailable Kathy PICKARD MD Unavailable Unavailable Kathy PICKARD MD Unavailable Unavailable Kathy PICKARD MD Unavailable Unavailable PICKARDKathy MD Unavailable Unavailable PICKARDKathy MD Unavailable Unavailable PICKARD E NORAH MELGOZA Unavailable Unavailable PICKARD E NORAH MELGOZA Unavailable Unavailable PICKARD E NORAH MELGOZA Unavailable Unavailable PICKARD E NORAH MELGOZA Unavailable Unavailable PICKARD E ONRAH MELGOZA Unavailable Unavailable PICKARD E NORAH MELGOZA Unavailable Unavailable PICKARD E NORAH MELGOZA Unavailable Unavailable PICKARD E NORAH MELGOZA Unavailable Unavailable PICKARD E NORAH MELGOZA Unavailable Unavailable PICKARD E NORAH MELGOZA Unavailable Unavailable PICKARD E NORAH MELGOZA Unavailable Unavailable PICKARD E NORAH MELGOZA Unavailable Unavailable PICKARD E NORAH MELGOZA Unavailable Unavailable PICKARDKathy MD Unavailable Unavailable PICKARD E NORAH MELGOZA Unavailable Unavailable PICKARD E NORAH MELGOZA Unavailable Unavailable PICKARD E NORAH MELGOZA Unavailable Unavailable PICKARD E NORAH MELGOZA Unavailable Unavailable PICKARD E NORAH MELGOZA Unavailable Unavailable PICKARD E NORAH MELGOZA Unavailable Unavailable PICKARD E NORAH MELGOZA Unavailable Unavailable PICKARD E NORAH MELGOZA Unavailable Unavailable PICKARD E NORAH MELGOZA Unavailable Unavailable PICKARD E NORAH MELGOZA Unavailable Unavailable PICKARD E NORAH MELGOZA Unavailable Unavailable PICKARD E NORAH MELGOZA Unavailable Unavailable PICKARD E NORAH MELGOZA Unavailable Unavailable PICKARD E NORAH MELGOZA Unavailable Unavailable PICKARDKathy MD Unavailable Unavailable PICKARDKathy MD Unavailable Unavailable PICKARDKathy MD Unavailable Unavailable PICKARD E NORAH MELGOZA Unavailable Unavailable PICKARD E NORAH MELGOZA Unavailable Unavailable PICKARD E NORAH MELGOZA Unavailable Unavailable PICKARD E NORAH EMLGOZA Unavailable Unavailable PICKARD E NORAH MELGOZA Unavailable Unavailable PICKARD E NORAH MELGOZA Unavailable Unavailable PICKARD E NORAH MELGOZA Unavailable Unavailable PICKARD E NORAH MELGOZA Unavailable Unavailable PICKARD E NORAH MELGOZA Unavailable Unavailable PICKARD E NORAH MELGOZA Unavailable Unavailable PICKARD E NORAH MELGOZA Unavailable Unavailable PICKARD E NORAH MELGOZA Unavailable Unavailable PICKARDKathy MD Unavailable Unavailable PICKARDKathy MD Unavailable Unavailable PICKARDKathy MD Unavailable Unavailable PICKARD E NORAH MELGOZA Unavailable Unavailable Gaulke, Tyra SPORTS LEADERSHIP INSTRUCTOR Unavailable Unavailable Gaulke, Tyra SPORTS LEADERSHIP INSTRUCTOR Unavailable Unavailable Gaulke, Tyra SPORTS LEADERSHIP INSTRUCTOR Unavailable Unavailable Gaulke, Tyra SPORTS LEADERSHIP INSTRUCTOR Unavailable Unavailable Gaulke, Tyra SPORTS LEADERSHIP INSTRUCTOR Unavailable Unavailable Gaulke, Tyra SPORTS LEADERSHIP INSTRUCTOR Unavailable Unavailable Gaulke, Tyra SPORTS LEADERSHIP INSTRUCTOR Unavailable Unavailable Gaulke, Tyra SPORTS LEADERSHIP INSTRUCTOR Unavailable Unavailable Gaulke, Tyra SPORTS LEADERSHIP INSTRUCTOR Unavailable Unavailable Gaulke, Tyra SPORTS LEADERSHIP INSTRUCTOR Unavailable Unavailable Gaulke, Tyra SPORTS LEADERSHIP INSTRUCTOR Unavailable Unavailable Gaulke, Tyra SPORTS LEADERSHIP INSTRUCTOR Unavailable Unavailable Gaulke, Tyra SPORTS LEADERSHIP INSTRUCTOR Unavailable Unavailable Gaulke, Tyra SPORTS LEADERSHIP INSTRUCTOR Unavailable Unavailable Gaulke, Tyra SPORTS LEADERSHIP INSTRUCTOR Unavailable Unavailable Gaulke, Tyra SPORTS LEADERSHIP INSTRUCTOR Unavailable Unavailable Gaulke, Tyra SPORTS LEADERSHIP INSTRUCTOR Unavailable Unavailable Gaulke, Tyra SPORTS LEADERSHIP INSTRUCTOR Unavailable Unavailable Gaulke, Tyra SPORTS LEADERSHIP INSTRUCTOR Unavailable Unavailable Gaulke, Tyra SPORTS LEADERSHIP INSTRUCTOR Unavailable Unavailable Gaulke, Tyra SPORTS LEADERSHIP INSTRUCTOR Unavailable Unavailable Gaulke, Tyra SPORTS LEADERSHIP INSTRUCTOR Unavailable Unavailable Gaulke, Tyra SPORTS LEADERSHIP INSTRUCTOR Unavailable Unavailable Gaulke, Tyra SPORTS LEADERSHIP INSTRUCTOR Unavailable Unavailable Gaulke, Tyra SPORTS LEADERSHIP INSTRUCTOR Unavailable Unavailable Gaulke, Tyra SPORTS LEADERSHIP INSTRUCTOR Unavailable Unavailable Gaulke, Tyra SPORTS LEADERSHIP INSTRUCTOR Unavailable Unavailable Gaulke, Tyra SPORTS LEADERSHIP INSTRUCTOR Unavailable Unavailable Gaulke, Tyra SPORTS LEADERSHIP INSTRUCTOR Unavailable Unavailable Gaulke, Tyra SPORTS LEADERSHIP INSTRUCTOR Unavailable Unavailable Gaulke, Tyra SPORTS LEADERSHIP INSTRUCTOR Unavailable Unavailable Gaulke, Tyra SPORTS LEADERSHIP INSTRUCTOR Unavailable Unavailable Gaulke, Tyra SPORTS LEADERSHIP INSTRUCTOR Unavailable Unavailable Gaulke, Tyra SPORTS LEADERSHIP INSTRUCTOR Unavailable Unavailable Gaulke, Tyra SPORTS LEADERSHIP INSTRUCTOR Unavailable Unavailable Emma Nash MD Unavailable Unavailable Emma Nash MD Unavailable Unavailable Emma Nash MD Unavailable Unavailable Emma Nash MD Unavailable Unavailable Emma Nash MD Unavailable Unavailable Emma Nash MD Unavailable Unavailable Emma Nash MD Unavailable Unavailable Emma Nash MD Unavailable Unavailable Emma Nash MD Unavailable Unavailable Emma Nash MD Unavailable Unavailable Emma Nash MD Unavailable Unavailable Emma Nash MD Unavailable Unavailable Emma Nash MD Unavailable Unavailable Emma Nash MD Unavailable Unavailable Emma Nash MD Unavailable Unavailable Emma Nash MD Unavailable Unavailable Emma Nash MD Unavailable Unavailable Emma Nash MD Unavailable Unavailable Emma Nash MD Unavailable Unavailable Emma Nash MD Unavailable Unavailable Emma Nash MD Unavailable Unavailable Emma Nash MD Unavailable Unavailable Emma aNsh MD Unavailable Unavailable Emma Nash MD Unavailable Unavailable Emma Nash MD Unavailable Unavailable Emma Nash MD Unavailable Unavailable Emma Nash MD Unavailable Unavailable Emma Nash MD Unavailable Unavailable Emma Nash MD Unavailable Unavailable NashEmma elam MD Unavailable Unavailable NsahEmma elam MD Unavailable Unavailable NashEmma elam MD Unavailable Unavailable NashEmma elam MD Unavailable Unavailable NashEmma elam MD Unavailable Unavailable NashEmma elam MD Unavailable Unavailable NashEmma elam MD Unavailable Unavailable NashEmma elam MD Unavailable Unavailable NashEmma MD Unavailable Unavailable NashEmma elam MD Unavailable Unavailable NashEmma MD Unavailable Unavailable NashEmma MD Unavailable Unavailable NashEmma MD Unavailable Unavailable NashEmma elam MD Unavailable Unavailable NashEmma MD Unavailable Unavailable NashEmma MD Unavailable Unavailable NashEmma MD Unavailable Unavailable NashEmma elam MD Unavailable Unavailable NashEmma elam MD Unavailable Unavailable NashEmma elam MD Unavailable Unavailable NashEmma elam MD Unavailable Unavailable NashEmma elam MD Unavailable Unavailable NashEmma elam MD Unavailable Unavailable NashEmma elam MD Unavailable Unavailable NashEmma elam MD Unavailable Unavailable NashEmma elam MD Unavailable Unavailable NashEmma elam MD Unavailable Unavailable NashEmma elam MD Unavailable Unavailable NashEmma elam MD Unavailable Unavailable Emma Nash MD Unavailable Unavailable NashEmma elam MD Unavailable Unavailable NashEmma elam MD Unavailable Unavailable NashEmma elam MD Unavailable Unavailable NashEmma elam MD Unavailable Unavailable Emma Nash MD Unavailable Unavailable Emma Nash MD Unavailable Unavailable Emma Nash MD Unavailable Unavailable NashEmma elam MD Unavailable Unavailable Emma Nash MD Unavailable Unavailable Emma Nash MD Unavailable Unavailable Emma Nash MD Unavailable Unavailable Emma Nash MD Unavailable Unavailable Emma Nash MD Unavailable Unavailable Emma Nash MD Unavailable Unavailable Emma Nash MD Unavailable Unavailable Emma Nash MD Unavailable Unavailable Emma Nash MD Unavailable Unavailable Emma Nash MD Unavailable Unavailable Brenden SCHMIDT MD ([place]) Unavailable Unavailab Brenedn Huang MD ([place]) Unavailable Unavailab le ROXANA (WILLARD), Brenden EDWARDS MD Unavailable Unavailab le ROXANA (WILLARD), Brenden EDWARDS MD Unavailable Unavailab le ROXANA (WILLARD), Brenden EDWARDS MD Unavailable Unavailab le ROXANA (W[place]ARD), Brenden EDWARDS MD Unavailable Unavailab le ROXANA (WILLARD), Brenden EDWARDS MD Unavailable Unavailab le ROXANA ([place]), Brenden EDWARDS MD Unavailable Unavailab le ROXANA (W[place]ARD), Brenden EDWARDS MD Unavailable Unavailab le ROXANA ([place]), Brenden EDWARDS MD Unavailable Unavailab le ROXANA ([place]), Brenden EDWARDS MD Unavailable Unavailab le ROXANA ([place]), Brenden EDWARDS MD Unavailable Unavailab le ROXANA (WILLARD), Brenden EDWARDS MD Unavailable Unavailab le ROXANA (W[place]ARD), Brenden EDWARDS MD Unavailable Unavailab le ROXANA (WILLARD), Brenden EDWARDS MD Unavailable Unavailab le ROXANA ([place]), Brenden EDWARDS MD Unavailable Unavailab le ROXANA (W[place]ARD), Brenden EDWARDS MD Unavailable Unavailab le ROXANA (W[place]ARD), Brenden EDWARDS MD Unavailable Unavailab le ROXANA (WILLARD), Brenden EDWARDS MD Unavailable Unavailab le ROXANA (WILLARD), Brenden EDWARDS MD Unavailable Unavailab le ROXANA (WILLARD), Brenden EDWARDS MD Unavailable Unavailab le ROXANA (WILLARD), Brenden EDWARDS MD Unavailable Unavailab le ROXANA (WILLARD), Brenden EDWARDS MD Unavailable Unavailab le ROXANA (WILLARD), Brenden EDWARDS MD Unavailable Unavailab le ROXANA (WILLARD), Brenden EDWARDS MD Unavailable Unavailab le ROXANA (WILLARD), Brenden EDWARDS MD Unavailable Unavailab le ROXANA (WILLARD), Brenden EDWARDS MD Unavailable Unavailab le ROXANA ([place]), Brenden EDWARDS MD Unavailable Unavailab le ROXANA (WILLARD), Brenden EDWARDS MD Unavailable Unavailab le ROXANA (W[place]ARD), Brenden EDWARDS MD Unavailable Unavailab le ROXANA (WILLARD), Brenden EDWARDS MD Unavailable Unavailab le ROXANA (WILLARD), Brenden EDWARDS MD Unavailable Unavailab le ROXANA ([place]ARD), Brenden EDWARDS MD Unavailable Unavailab le ROXANA (W[place]ARD), Brenden EDWARDS MD Unavailable Unavailab le ROXANA (WILLARD), Brenden EDWARDS MD Unavailable Unavailab le ROXANA (W[place]ARD), Brenden EDWARDS MD Unavailable Unavailab le ROXANA (WILLARD), Brenden EDWARDS MD Unavailable Unavailab le ROXANA (WILLARD), Brenden EDWARDS MD Unavailable Unavailab le ROXANA (WILLARD), Brenden EDWARDS MD Unavailable Unavailab le ROXANA (W[place]ARD), Brenden EDWARDS MD Unavailable Unavailab le ROXANA (WILLARD), Brenden EDWARDS MD Unavailable Unavailab le ROXANA (WILLARD), Brenden EDWARDS MD Unavailable Unavailab le ROXANA (WILLARD), Brenden EDWARDS MD Unavailable Unavailab le ROXANA (W[place]ARD), Brenden EDWARDS MD Unavailable Unavailab le ROXANA (WILLARD), Brenden EDWARDS MD Unavailable Unavailab le ROXANA (WILLARD), Brenden EDWARDS MD Unavailable Unavailab le ROXANA (WILLARD), Brenden EDWARDS MD Unavailable Unavailab le ROXANA (WILLARD), Brenden EDWARDS MD Unavailable Unavailab le ROXANA (WILLARD), Brenden EDWARDS MD Unavailable Unavailab le ROXANA (WILLARD), Brenden EDWARDS MD Unavailable Unavailab le ROXANA (WILLARD), Brenden EDWARDS MD Unavailable Unavailab le ROXANA (W[place]ARD), Brenden EDWARDS MD Unavailable Unavailab le ROXANA (WILLARD), Brenden EDWARDS MD Unavailable Unavailab le ROXANA (WILLARD), Brenden EDWARDS MD Unavailable Unavailab le ROXANA (WILLARD), Brenden EDWARDS MD Unavailable Unavailab le ROXANA (WILLARD), Brenden EDWARDS MD Unavailable Unavailab le ROXANA (WILLARD), Brenden EDWARDS MD Unavailable Unavailab le ROXANA (WILLARD), Brenden EDWARDS MD Unavailable Unavailab le ROXANA (WILLARD), Brenden EDWARDS MD Unavailable Unavailab le ROXANA (WILLARD), Brenden EDWARDS MD Unavailable Unavailab le ROXANA (WILLARD), Brenden EDWARDS MD Unavailable Unavailab le ROXANA (W[place]ARD), Brenden EDWARDS MD Unavailable Unavailab le ROXANA (WILLARD), Brenden EDWARDS MD Unavailable Unavailab le ROXANA (WILLARD), Brenden EDWARDS MD Unavailable Unavailab le ROXANA (WILLARD), Brenden EDWARDS MD Unavailable Unavailab le ROXANA (WILLARD), Brenden EDWARDS MD Unavailable Unavailab le ROXANA (WILLARD), Brenden EDWARDS MD Unavailable Unavailab le ROXANA ([place]), Brenden EDWARDS MD Unavailable Unavailab le ROXANA (WILLARD), Brenden EDWARDS MD Unavailable Unavailab le ROXANA (WILLARD), Brenden EDWARDS MD Unavailable Unavailab le ROXANA (WILLARD), Brenden EDWARDS MD Unavailable Unavailab le ROXANA (WILLARD), Brenden EDWARDS MD Unavailable Unavailab le ROXANA (WILLARD), Brenden EDWARDS MD Unavailable Unavailab le ROXANA (W[place]ARD), Brenden EDWARDS MD Unavailable Unavailab le ROXANA (WILLARD), Brenden EDWARDS MD Unavailable Unavailab le ROXANA (W[place]), Brenden EDWARDS MD Unavailable Unavailab le ROXANA (WILLARD), Brenden EDWARDS MD Unavailable Unavailab le ROXANA (WILLARD), Brenden EDWARDS MD Unavailable Unavailab le ROXANA ([place]), Brenden EDWARDS MD Unavailable Unavailab le ROXANA ([place]), Brenden EDWARDS MD Unavailable Unavailab le ROXANA (WILLARD), Brenden EDWARDS MD Unavailable Unavailab le ROXANA (W[place]ARD), Brenden EDWARDS MD Unavailable Unavailab le ROXANA ([place]), Brenden EDWARDS MD Unavailable Unavailab le ROXANA ([place]), Brenden EDWARDS MD Unavailable Unavailab le ROXANA ([place]), Brenden EDWARDS MD Unavailable Unavailab le ROXANA ([place]), Brenden EDWARDS MD Unavailable Unavailab le ROXANA ([place]), Brenden EDWARDS MD Unavailable Unavailab le ROXANA (W[place]), Brenden EDWARDS MD Unavailable Unavailab le ROXANA (W[place]ARD), Brenden EDWARDS MD Unavailable Unavailab le ROXANA ([place]), Brenden EDWARDS MD Unavailable Unavailab le ROXANA ([place]), Brenden EDWARDS MD Unavailable Unavailab le ROXANA ([place]), Brenden EDWARDS MD Unavailable Unavailab le ROXANA (WILLARD), Brenden EDWARDS MD Unavailable Unavailab le ROXANA (W[place]), Brenden EDWARDS MD Unavailable Unavailab le ROXANA (W[place]), Brenden EDWARDS MD Unavailable Unavailab le ROXANA (W[place]), Brenden EDWARDS MD Unavailable Unavailab le ROXANA (WILLARD), Brenden EDWARDS MD Unavailable Unavailab le ROXANA ([place]), Brenden EDWARDS MD Unavailable Unavailab le ROXANA (W[place]ARD), Brenden EDWARDS MD Unavailable Unavailab le ROXANA (W[place]), Brenden EDWARDS MD Unavailable Unavailab le ROXANA (WILLARD), Brenden EDWARDS MD Unavailable Unavailab le ROXANA ([place]), Brenden EDWARDS MD Unavailable Unavailab le ROXANA ([place]), Brenden EDWARDS MD Unavailable Unavailab le ROXANA (W[place]), Brenden EDWARDS MD Unavailable Unavailab le ROXANA (WILLARD), Brenden EDWARDS MD Unavailable Unavailab le ROXANA (W[place]), Brenden EDWARDS MD Unavailable Unavailab le ROXANA ([place]), Brenden EDWARDS MD Unavailable Unavailab le ROXANA ([place]), Brenden EDWARDS MD Unavailable Unavailab le ROXANA (W[place]), Brenden EDWARDS MD Unavailable Unavailab le ROXANA (W[place]ARD), Brenden EDWARDS MD Unavailable Unavailab le ROXANA (W[place]), Brenden EDWARDS MD Unavailable Unavailab le ROXANA ([place]), Brenden EDWARDS MD Unavailable Unavailab le ROXANA (W[place]), Brenden EDWARDS MD Unavailable Unavailab le ROXANA ([place]), Brenden EDWARDS MD Unavailable Unavailab le ROXANA (W[place]), Brenden EDWARDS MD Unavailable Unavailab le ROXANA (W[place]ARD), Brenden EDWARDS MD Unavailable Unavailab le ROXANA (W[place]), Brenden EDWARDS MD Unavailable Unavailab le ROXANA ([place]), Brenden EDWARDS MD Unavailable Unavailab le ROXANA ([place]), Brenden EDWARDS MD Unavailable Unavailab le ROXANA ([place]), Brenden EDWARDS MD Unavailable Unavailab le ROXANA (W[place]), Brenden EDWARDS MD Unavailable Unavailab le ROXANA ([place]), Brenden EDWARDS MD Unavailable Unavailab le ROXANA ([place]), Brenden EDWARDS MD Unavailable Unavailab le ROXANA ([place]), Brenden EDWARDS MD Unavailable Unavailab le ROXANA ([place]), Brenden EDWARDS MD Unavailable Unavailab le ROXANA ([place]), Brenden EDWARDS MD Unavailable Unavailab le ROXANA ([place]), Brenden EDWARDS MD Unavailable Unavailab le ROXANA (W[place]), Brenden EDWARDS MD Unavailable Unavailab le ROXANA (W[place]), Brenden EDWARDS MD Unavailable Unavailab le ROXANA ([place]), Brenden EDWARDS MD Unavailable Unavailab le ROXANA ([place]), Brenden EDWARDS MD Unavailable Unavailab le ROXANA ([place]), Brenden EDWARDS MD Unavailable Unavailab le ROXANA ([place]), Brenden EDWARDS MD Unavailable Unavailab le ROXANA ([place]), Brenden EDWARDS MD Unavailable Unavailab le ROXANA ([place]), Brenden EDWARDS MD Unavailable Unavailab le ROXANA ([place]), Brenden EDWARDS MD Unavailable Unavailab le ROXANA ([place]), Brenden EDWARDS MD Unavailable Unavailab le ROXANA ([place]), Brenden EDWARDS MD Unavailable Unavailab le ROXANA (W[place]), Brenden EDWARDS MD Unavailable Unavailab le ROXANA (W[place]), Brenden EDWARDS MD Unavailable Unavailab le ROXANA ([place]), Brenden EDWARDS MD Unavailable Unavailab le ROXANA ([place]), Brenden EDWARDS MD Unavailable Unavailab le ROXANA ([place]), Brenden EDWARDS MD Unavailable Unavailab le ROXANA (W[place]ARD), Brenden EDWARDS MD Unavailable Unavailab le ROXAAN (WILLARD), Brenden EDWARDS MD Unavailable Unavailab le ROXANA ([place]), Brenden EDWARDS MD Unavailable Unavailab le ROXANA ([place]), Brenden EDWARDS MD Unavailable Unavailab le ROXANA ([place]), Brenden EDWARDS MD Unavailable Unavailab le ROXANA ([place]), Brenden EDWARDS MD Unavailable Unavailab le ROXANA ([place]), Brenden EDWARDS MD Unavailable Unavailab le ROXANA (W[place]ARD), Brenden EDWARDS MD Unavailable Unavailab le ROXANA ([place]), Brenden EDWARDS MD Unavailable Unavailab le ROXANA ([place]), Brenden EDWARDS MD Unavailable Unavailab le ROXANA ([place]), Brenden EDWARDS MD Unavailable Unavailab le ROXANA ([place]), Brenden EDWARDS MD Unavailable Unavailab le ROXANA (W[place]ARD), Brenden EDWARDS MD Unavailable Unavailab le ROXANA ([place]), Brenden EDWARDS MD Unavailable Unavailab le ROXANA ([place]), Brenden EDWARDS MD Unavailable Unavailab le ROXANA ([place]), Brenden EDWARDS MD Unavailable Unavailab le ROXANA ([place]), Brenden EDWARDS MD Unavailable Unavailab le ROXANA ([place]), Brenden EDWARDS MD Unavailable Unavailab le ROXANA ([place]), Brenden EDWARDS MD Unavailable Unavailab le ROXANA ([place]), Brenden EDWARDS MD Unavailable Unavailab le ROXANA ([place]), Brenden EDWARDS MD Unavailable Unavailab le ROXANA ([place]), Brenden EDWARDS MD Unavailable Unavailab le ROXANA ([place]), Brenden EDWARDS MD Unavailable Unavailab le ROXANA ([place]), Brenden EDWARDS MD Unavailable Unavailab le ROXANA ([place]), Brenden EDWARDS MD Unavailable Unavailab le ROXANA ([place]), Brenden EDWARDS MD Unavailable Unavailab le ROXANA ([place]), Brenden EDWARDS MD Unavailable Unavailab le ROXANA ([place]), Brenden EDWARDS MD Unavailable Unavailab le ROXANA ([place]), Brenden EDWARDS MD Unavailable Unavailab le ROXANA ([place]ARD), rBenden EDWARDS MD Unavailable Unavailab le ROXANA (W[place]ARD), Brenden EDWARDS MD Unavailable Unavailab le ROXANA (WILLARD), Brenden EDWARDS MD Unavailable Unavailab le ROXANA (WILLARD), Brenden EDWARDS MD Unavailable Unavailab le ROXAAN (WILLARD), Brenden EDWARDS MD Unavailable Unavailab le ROXANA (WILLARD), Brenden EDWARDS MD Unavailable Unavailab le ROXANA (WILLARD), Brenden EDWARDS MD Unavailable Unavailab le ROXANA (WILLARD), Brenden EDWARDS MD Unavailable Unavailab le ROXANA (WILLARD), Brenden EDWARDS MD Unavailable Unavailab le ROXANA (WILALRD), Brenden EDWARDS MD Unavailable Unavailab le ROXANA (WILLARD), Brenden EDWARDS MD Unavailable Unavailab le ROXANA (WILLARD), Brenden EDWARDS MD Unavailable Unavailab le Re-disclosure Warning The records that you are about to access may contain information from federally-assisted alcohol or drug abuse programs. If such information is present, then the following federally mandated warning applies: This information has been disclosed to you from records protected by federal confidentiality rules (42 CFR part 2). The federal rules prohibit you from making any further disclosure of this information unless further disclosure is expressly permitted by the written consent of the person to whom it pertains or as otherwise permitted by 42 CFR part 2. A general authorization for the release of medical or other information is NOT sufficient for this purpose. The Federal rules restrict any use of the information to criminally investigate or prosecute any alcohol or drug abuse patient.The records that you are about to access may contain highly sensitive health information, the redisclosure of which is protected by Article 27-F of the [facility] Public Health law. If you continue you may have access to information: Regarding HIV / AIDS; Provided by facilities licensed or operated by the [facility] Office of Mental Health; or Provided by the [facility] Office for People With Developmental Disabilities. If such information is present, then the following [facility] mandated warning applies: This information has been disclosed to you from confidential records which are protected by state law. State law prohibits you from making any further disclosure of this information without the specific written consent of the person to whom it pertains, or as otherwise permitted by law. Any unauthorized further disclosure in violation of state law may result in a fine or shelter sentence or both. A general authorization for the release of medical or other information is NOT sufficient authorization for further disc losure. Family History Family Member Name Family Member Gender Family Member Status Date o f Status Description Data Source(s) Unknown Unknown Problem [facility] Encounters Encounter Providers Location Date Indications Data Source(s ) [place] [address] [facility] [address] 03/16/2020 12:00:00 AM EST eCW1 ([facility]) [place] [address] [facility] [address] 03/16/2020 12:00:00 AM EST eCW1 ([facility]) Unknown [address] [facility] [place] [address] 03/16/2020 12:00:00 AM EST eCW1 ([facility]) [place] [address] [facility] [address] 02/23/2020 12:00:00 AM EST eCW1 ([facility]) [place] [address] [facility] [address] 02/23/2020 12:00:00 AM EST eCW1 ([facility] [place]) TeleMedicine Est. Pt. Level [address] [place] [address] 02/18/2020 12:00:00 AM EST eCW1 ([facility]) Unknown [address] [facility] [address] 02/15/2020 12:00:00 AM EST [facility]CW1 [facility]) Outpatient Attender: Tamara GILLESPIE Main Office 01/26/2020 08:45:00 AM EST MEDENT ([facility]) Unknown [address] [facility] [address] 01/13/2020 12:00:00 AM EST eCW1 ([facility]) Outpatient Attender: Amilcar Naik MD [facility] 12/08/2019 02:00:00 PM EDT MEDENT ([facility]) Unknown [address] [facility] [address] 08/13/2019 12:00:00 AM EDT eCW1 ([facility]) [facility] [place] [address] [facility] [place] [address] 08/04/2019 12:00:00 AM EDT eCW1 ([facility]) Outpatient Attender: Tamara GILLESPIE Main Office 07/24/2019 09:45:00 AM EDT MEDENT ([facility]) Outpatient Attender: Julian Nash MD [place] 06/25/2019 02:00:00 PM EDT MEDENT ([facility]) Outpatient Attender: GRACE SCHMIDT ([facility]) MDReferrer: GRACE SCHMIDT MD ([place]) ES1-SJ.NM 05/13/2019 08:18:00 AM EDT - 05/13/2019 11:59:00 PM EDT [facility] Patient discharged. Outpatient 04/18/2019 03:30:00 PM EST [facility] [address] [place] [address] 04/16/2019 12:00:00 AM EST eCW1 ([facility]) Attender: GRACE SCHMIDT ([facility]) MDAttender: Tyra Wong NPReferrer: NORAH PICKARD MD 04/15/2019 08:20:02 PM EST [facility] [address] [address] 04/15/2019 12:00:00 AM EST eCW1 ([facility]) [address] [place] [address] 04/15/2019 12:00:00 AM EST eCW1 ([facility]) [address] [place] [address] 04/15/2019 12:00:00 AM EST eCW1 ([facility]) [address] [address] 02/04/2019 12:00:00 AM EST eCW1 ([facility]) Outpatient Attender: Tamara GILLESPIE Main Office 01/22/2019 12:30:00 PM EST MEDENT ([facility]) Medications Medication Brand Name Start Date Product Form Dose Route Admi nistrative Instructions Pharmacy Instructions Status Indications Reaction Description Data Source(s) sildenafil 100 MG Oral Tablet Sildenafil Citrate 100 M G Sildenafil Citrate 100 MG 02/18/2020 12:00:00 AM EST active Sildenafil Citrate 100 MG eCW1 ([facility]) 1250 MG Testosterone 0.0162 MG/MG Topica l Gel [Androgel] AndroGel 20.25 MG/1.25GM (1.62%) AndroGel 20.25 MG/1.25GM (1.62%) 02/18/2020 12:00:00 AM EST active AndroGel 20.25 MG/1.25GM (1.62%) eCW1 ([facility]) 1250 MG Testosterone 0.0162 MG/MG Topica l Gel [Androgel] AndroGel 20.25 MG/1.25GM (1.62%) AndroGel 20.25 MG/1.25GM (1.62%) 02/18/2020 12:00:00 AM EST active AndroGel 20.25 MG/1.25GM (1.62%) [facility] ([facility]) sildenafil 100 MG Oral Tablet Sildenafil Citrate 100 M G Sildenafil Citrate 100 MG 02/18/2020 12:00:00 AM EST active Sildenafil Citrate 100 MG eCW1 ([facility]) 1250 MG Testosterone 0.0162 MG/MG Topica l Gel [Androgel] AndroGel 20.25 MG/1.25GM (1.62%) AndroGel 20.25 MG/1.25GM (1.62%) 02/18/2020 12:00:00 AM EST active AndroGel 20.25 MG/1.25GM (1.62%) [facility] ([facility]) sildenafil 100 MG Oral Tablet Sildenafil Citrate 100 M G Sildenafil Citrate 100 MG 02/18/2020 12:00:00 AM EST active Sildenafil Citrate 100 MG eCW1 ([facility]) sildenafil 100 MG Oral Tablet Sildenafil Citrate 100 M G Sildenafil Citrate 100 MG 02/18/2020 12:00:00 AM EST active Sildenafil Citrate 100 MG eCW1 ([facility]) 1250 MG Testosterone 0.0162 MG/MG Topica l Gel [Androgel] AndroGel 20.25 MG/1.25GM (1.62%) AndroGel 20.25 MG/1.25GM (1.62%) 02/18/2020 12:00:00 AM EST active AndroGel 20.25 MG/1.25GM (1.62%) eCW1 ([facility]) 1250 MG Testosterone 0.0162 MG/MG Topica l Gel [Androgel] AndroGel 20.25 MG/1.25GM (1.62%) AndroGel 20.25 MG/1.25GM (1.62%) 02/18/2020 12:00:00 AM EST active AndroGel 20.25 MG/1.25GM (1.62%) eCW1 ([facility]) sildenafil 100 MG Oral Tablet Sildenafil Citrate 100 M G Sildenafil Citrate 100 MG 02/18/2020 12:00:00 AM EST active Sildenafil Citrate 100 MG eCW1 ([facility]) 1250 MG Testosterone 0.0162 MG/MG Topica l Gel [Androgel] AndroGel 20.25 MG/1.25GM (1.62%) AndroGel 20.25 MG/1.25GM (1.62%) 02/18/2020 12:00:00 AM EST active AndroGel 20.25 MG/1.25GM (1.62%) eCW1 ([facility]) sildenafil 100 MG Oral Tablet Sildenafil Citrate 100 M G Sildenafil Citrate 100 MG 02/18/2020 12:00:00 AM EST active Sildenafil Citrate 100 MG [facility] ([facility]) 12 HR Pseudoephedrine Hydrochloride 120 MG Extended Re lease Oral Tablet Pseudoephedrine HCL ER 01/25/2020 12:00:00 AM EST ORAL active MEDENT ([facility]) Super B Complex Maxi 01/25/2020 12:00:00 AM EST ORAL active MEDENT ([facility]) gabapentin 800 MG Oral Tablet Gabapentin 01/25/2020 12:00:00 AM EST ORAL active MEDENT ([facility]) dexlansoprazole 60 MG Delayed Release Oral Capsule [Dexilant ] Dexilant 01/25/2020 12:00:00 AM EST ORAL active MEDENT ([facility]) gabapentin 600 MG Oral Tablet Gabapentin 01/25/2020 12:00:00 AM EST ORAL active [facility] ([facility]) Vitamin B 12 1 MG Oral Tablet Vitamin B-12 01/25/2020 12:00:00 AM EST ORAL active [facility] ([facility]) Acetaminophen 325 MG / Hydrocodone Bitartrate 5 MG Ora l Tablet Hydrocodone-Acetaminophen 01/25/2020 12:00:00 AM EST ORAL active MEDENT ([facility]) 3 ML Insulin Glargine 100 UNT/ML Pen Injector [Lantus] Lantu s Solostar 01/25/2020 12:00:00 AM EST active MEDENT ([facility]) Azelastine HCL (Nasal) Azelastine HCL (Nasal) 12/08/2019 12:00:00 AM E DT active MEDENT ([facility]) Fluticasone Propionate Fluticasone Propionate 12/08/2019 12:00:00 AM E DT active MED[facility] ([facility]) technetium TC99m (DTPA) injection 1 millicurie 020 09:00:00 AM EDT 1 mCi Intravenous completed 1 millic urie, Intravenous, Once, Tu05/13/19 at 0900, For 1 dose [facility] Medication administered onsite Ciprofloxacin 500 MG Oral Tablet [Cipro] Cipro 500 MG Cipro 500 MG 04/15/2019 12:00:00 AM EST 1.0 {tablet} active Ci pro 500 MG eCW1 ([facility]) Ciprofloxacin 500 MG Oral Tablet [Cipro] Cipro 500 MG Cipro 500 MG 04/15/2019 12:00:00 AM EST 1.0 {tablet} active Ci pro 500 MG eCW1 ([facility]) Ciprofloxacin 500 MG Oral Tablet [Cipro] Cipro 500 MG Cipro 500 MG 04/15/2019 12:00:00 AM EST 1.0 {tablet} active Ci pro 500 MG eCW1 ([facility]) Ciprofloxacin 500 MG Oral Tablet [Cipro] Cipro 500 MG Cipro 500 MG 04/15/2019 12:00:00 AM EST active 1 tablet eCW1 ([facility]) Nifedipine 10 MG Oral Capsule Nifedipine 02/05/2019 12:00:00 AM EST completed MEDENT ([facility]) Insurance Providers Payer name Policy type / Coverage type Policy ID Covered constitution party ID Covered constitution party's relationship to canales Policy Canales Plan Information MEDICARE [id number] [facility] [facility] FEDERAL EMPLOYEE PROGRAM [id number] SP [id number] PG[place] [id number] SP [id number] FOR LIFE [id number] SP [id number] SELF PAY ONLY [id number] SP [id number] [facility] FEDERAL EMPLOYEE PROGRAM [id number] SP [id number] MEDICARE C [id number] S [id number] FOR LIFE O [id number] S [id number] [facility] FED[facility] B [id number] S [id number] EXCELLUS BCBS [id number] MEDICARE [id number] MEDICARE [id number] Nic [id number] EXCELLUS BCBS [id number] Nic [id number] Nic [id number] [facility] [facility] FEDERAL EMPLOYEE PROGRAM [id number] SP [id number] MEDICARE [id number] SP [id number] For Life Secondary ONLY [id number] [facility] [id number] Medicare Part B [place] [id number] ANSI-Commercial [id number] ANSI-Medicare Part B [id number] ANSI-Commercial [id number] ANSI-Commercial [id number] ANSI-Commercial [id number] ANSI-Medicare Part B [id number] ANSI-Medicare Part B [id number] ANSI-Commercial [id number] ANSI-Commercial [id number]-[id number]-[id number] ANSI-Commercial [id number] ANSI-Medicare Part B [id number] ANSI-Commercial [id number] ANSI-Commercial [id number]-20mf-[id number]-[id number] ANSI-Commercial [id number]-[id number] ANSI-Medicare Part B [id number] ANSI-Commercial [id number]-[id number]-[id number] ANSI-Commercial [id number] ANSI-Medicare Part B [id number] ANSI-Medicare Part B [id number] ANSI-Commercial [id number] [id number]-[id number] ANSI-Commercial [id number]-l6bt-32c0-[id number] 27e3r6m9-j2kl-79s3-[id number] For Life - W[facility] Part B [id number] Self [id number] Medicare (Part B) Medicare Primary [id number] Self [id number] [facility] Part B [id number] Self [id number] For Life - WPS [facility] Part B [id number] Self [id number] Medicare (Part B) Medicare Primary [id number] Self [id number] ANSI-Medicare Part B [id number] ANSI-Commercial [id number] ANSI-Commercial [id number]-uhrh-[id number]-mznd-[id number] ANSI-Commercial [id number] ANSI-Medicare Part B [id number] ANSI-Commercial [id number]-431c-xj38-[id number] ANSI-Medicare Part B [id number] ANSI-Commercial c59gxt50-ofr1-9x79-[id number] [id number]-obd3-1z83-g680-[id number] ANSI-Commercial [id number]-[id number]-[id number] ANSI-Medicare Part B [id number] ANSI-Commercial [id number]-y7tf-[id number] [id number]-d3ys-ak573qb13vnz ANSI-Commercial [id number]-[id number] ANSI-Commercial [id number]-04f9-t94t-git42p80y9rg [id number]-62h0-f10a-vst31p80m4df ANSI-Commercial [id number]-wj0b-0w01-5v39-t5b8375gjq57 [id number]-zl8d-2q24-6b72-x4f3075omu64 ANSI-Medicare Part B [id number] ANSI-Commercial [id number]-6giw-[id number]-[id number] ANSI-Medicare Part B [id number] ANSI-Commercial [id number]-v192-[id number] WPS FOR LIFE [id number] 0 [id number] MEDICARE [id number] A ANSI-Medicare Part B [id number] ANSI-Commercial [id number]-[id number]-n6b7-[id number]-sg4a-3xq0-z7k9-[id number] ANSI-Commercial [id number]-v7k0-83gd-q7nm-7ovi3y2fyg5t [id number]-b5v4-64vp-n3cs-4gyk0w1lmz1c For Life - WPS [facility] Part B [id number] [facility] [id number] Medicare (Part B) Medicare Primary [id number] Self [id number] ANSI-Commercial [id number]-5no4-[id number] ANSI-Commercial [id number]-[id number] ANSI-Medicare Part B [id number] ANSI-Commercial [id number]-r48f-6h52-1qbu-[id number] ANSI-Commercial [id number] [id number]-[id number]-[id number] ANSI-Medicare Part B [id number] [employer] Employee Program J [id number] SELF [id number] Medicare C [id number] SELF [id number] A For Life F [id number] SELF 10 [id number] [place] [employer] Employee Program J [id number] SELF [id number] Medicare C [id number] SELF [id number] A For Life - WPS Medigap Part B [id number] Self [id number] Medicare (Part B) Medicare Primary [id number] Self [id number] For Life - WPS Medigap Part B [id number] Self [id number] Medicare (Part B) Medicare Primary [id number] Self [id number] Medicare Part B of [facility] Other 0 Se lf 0 BCBS of [place] Other 0 Self 0 Medicare Part B of [facility] Other 0 Se lf 0 BCBS of [facility] [place] Other 0 Self 0 [place] [facility] (T[place]) Medigap Part B [id number] Self [id number] BS [place] Medigap Part B [id number] Self [id number] [place] Primary [id number] Self [id number] BS Fed Plan Medigap Part B [id number] Self [id number] EXCELLUS BCBS FEDERAL [id number] SP [id number] [place] [facility] (TFL) Medigap Part B [id number] Self [id number] BS [place] Medigap Part B [id number] Self [id number] [place] Medicare Primary [id number] Self [id number] For Life - WPS Medigap Part B [id number] Self [id number] Medicare (Part B) Medicare Primary [id number] Self [id number] [place] [employer] [employer] (TFL) Medigap Part B [id number] Self [id number] BS [place] Medigap Part B [id number] Self [id number] [place] Primary [id number] Self [id number] For Life Medigap Part B [id number] Self [id number] BS Federal Medigap Part B [id number] Self [id number] [place] Primary [id number] Self [id number] EXCELLUS BCBS FEDERAL [id number] SP [id number] For Life - WPS Medigap Part B [id number] Self [id number] Medicare (Part B) Medicare Primary [id number] Self [id number] [place] [employer] [employer] (TFL) Medigap Part B [id number] Self [id number] BS [place] Medigap Part B [id number] Self [id number] [place] Medicare Primary [id number] Self [id number] [place] [employer] (TFL) Medigap Part B [id number] Self [id number] BS [place] Medigap Part B [id number] Self [id number] [place] Medicare Primary [id number] Self [id number] [place] [employer] [employer] (TFL) Medigap Part B [id number] Self [id number] BS [place] Medigap Part B [id number] Self [id number] [place] Primary [id number] Self [id number] For Life Medigap Part B Self BS Federal Medigap Part B Self Medicare [place] Medicare Primary Self PGBA [place] O [id number] S [id number] BC BS [place] FEDERAL B [id number] S [id number] MEDICARE C [id number] S [id number] A Medicare (Part B) Medicare Primary Self For Life - WPS Medigap Part B Self BC/BS Federal Medigap Part B Self [place] [employer] [employer] (TFL) Medigap Part B Self BS [place] Medigap Part B Self BS Fed Plan Medigap Part B Self Medicare [place] Medicare Primary Self Health Net Federal SVCS Medigap Part B Self Excellus [employer] Medigap Part B Self Medicare [place] Medicare Primary Self Medicare Medicare Primary Self U [id number] Self [id number] EXCELLUS C [id number] Self [id number] MEDICARE A [id number] Self [id number] A BC BS [place] FEDERAL [id number] SP [id number] SELF PAY 2 UNAVAILABLE 1 UNAVAILA BLE BC FEP MEMBERS 1 [id number] MEDICARE 4 [id number] 1 [id number] A MEDICARE [id number] SP [id number] SELF PAY UNAVAILABLE UNAVAILA BLE [id number] A [id number] Problems, Conditions, and Diagnoses Code Display Name Description Problem Type Effective Dates Data Source(s) D64.9 241233481 Anemia, unspecified type Problem 02/18/2020 12:00:00 AM EST eCW1 ([facility]) F98.4 [id number] Repetitive rocking movements Problem 020 12:00:00 AM EST eCW1 ([facility]) 31404779 Essential hypertension Essential hypertension Problem 12/02/2019 12:00:00 AM EDT MEDENT ([facility]) G89.29 [id number] Other chronic pain Problem 08/04/2019 12:00: 00 AM EDT eCW1 ([facility]) M54.41 [id number] Lumbago with sciatica, right side Problem 08/04/2019 12:00:00 AM EDT eCW1 ([facility]) G89.29 [id number] Other chronic pain Problem 08/04/2019 12:00: 00 AM EDT eCW1 ([facility]) M54.41 [id number] Lumbago with sciatica, right side Problem 08/04/2019 12:00:00 AM EDT eCW1 ([facility]) [id number] Pure hypercholesterolemia Pure hypercholesterolemia Pr oblem 06/25/2019 12:00:00 AM EDT MEDENT ([facility]) [id number] Essential hypertension Essential hypertension Problem 06/25/2019 12:00:00 AM EDT MEDENT ([facility]) R10.13 Epigastric pain Epigastric pain Diagnosis 05/13/2019 08:1 8:00 AM EDT [facility] Surgeries/Procedures Procedure Description Date Indications Data Source(s) ECG ROUTINE ECG W/LEAST 12 LDS W/I&R 01/26/2020 12:00: 00 AM EST MEDENT ([facility]) Audiometry Threshold Evaluation & Speech Recognition 12/08/2019 12:00:00 AM EDT MEDENT ([facility]) TYMPANOMETRY 12/08/2019 12:00:00 AM EDT M EDENT ([facility]) THER ACTV DIR PT CONTACT BY PROVIDER EACH 15 MIN 09/03 12:00:00 AM EDT MEDENT ([facility]) THER ACTV DIR PT CONTACT BY PROVIDER EACH 15 MIN 08/20 12:00:00 AM EDT MEDENT ([facility]) THER ACTV DIR PT CONTACT BY PROVIDER EACH 15 MIN 08/17 12:00:00 AM EDT MEDENT ([facility]) THER ACTV DIR PT CONTACT BY PROVIDER EACH 15 MIN 08/13 12:00:00 AM EDT MEDENT ([facility]) THER ACTV DIR PT CONTACT BY PROVIDER EACH 15 MIN 08/10 12:00:00 AM EDT MEDENT ([facility]) THER ACTV DIR PT CONTACT BY PROVIDER EACH 15 MIN 08/06 12:00:00 AM EDT MEDENT ([facility]) Physical Therapy Eval Moderate 08/05/2019 12:00:00 AM EDT MEDENT ([facility]) ECG ROUTINE ECG W/LEAST 12 LDS W/I&R 07/24/2019 12:00: 00 AM EDT MEDENT ([facility]) GASTRIC EMPTYING STUDY NM GASTRIC EMPTYING LIQUID Routine 05/13/2019 9:18 AM EDT Abdominal pain, epigastric 05/13/2019 01:18:48 PM EDT Abdomi nal pain, epigastric [facility] Abdominal pain, epigastric MYOCARDIAL SPECT MULTIPLE STUDIES 02/11/2019 12:00:00 AM EST MEDENT ([facility]) CV STRS TST XERS&/OR RX CONT ECG PHYS SI&R 02/11/2019 12:00:00 AM EST [facility]ENT ([facility]) Results ID Date Data Source [id number] 02/17/2020 12:00:00 AM EST [facility] Name Value Range Interpretation Code Description Data Sejal rce(s) Supporting Document(s) SARS-CoV-2 (COVID-19) RNA [Presence] in Respiratory specimen by XIANG with probe detection [facility] This lab was ordered by [facility] and reported by [employer] ID Date Data Source [id number] 02/10/2020 12:00:00 AM EST [facility] Name Value Range Interpretation Code Description Data Sejal rce(s) Supporting Document(s) 2019-nCoV RNA XXX XIANG+probe-Imp [facility] This lab was ordered by [facility] and reported by [employer] ID Date Data Source [id number] 11/12/2019 12:41:00 PM EDT [facility]ENT ([facility]) Name Value Range Interpretation Code Description Data Sejal rce(s) Supporting Document(s) White Blood Count 5.5 4.0-10.0 MEDENT ([facility]) Platelets 314 150-450 [facility] Red Blood Count 3.93 4.30-6.10 [facility] ([facility]) Hematocrit 38.6 MEDENT ([facility]) Hemoglobin 12.6 MED[facility] ([facility]) ID Date Data Source [id number] 11/12/2019 12:41:00 PM EDT [facility] ([facility] Name Value Range Interpretation Code Description Data Sejal rce(s) Supporting Document(s) Cholesterol 97 MEDENT ([facility]) Triglycerides 196 [facility] ([facility]) HDL 30 [facility] ([facility] Cholesterol in LDL [Mass/volume] in Serum or Plasma by calculation 28 [facility] ([facility]) Chol/HDL Ratio 3.233 [facility] ([facility]) ID Date Data Source [id number] 11/12/2019 12:41:00 PM EDT MED[facility] ([facility] Name Value Range Interpretation Code Description Data Sejal rce(s) Supporting Document(s) Albumin [Mass/volume] in Serum or Plasma 4.1 MEDENT ([facility]) Calcium [Mass/volume] in Serum or Plasma 8.9 [facility] ([facility]) Alanine aminotransferase [Enzymatic activity/volume] in Serum or Pl asma 46 MEDENT ([facility]) Chloride [Moles/volume] in Serum or Plasma 95 [facility] ([facility]) Carbon dioxide, total [Moles/volume] in Serum or Plasma 29 [facility] ([facility]) Potassium [Moles/volume] in Serum or Plasma 4.3 MED[facility] ([facility]) Alkaline phosphatase [Enzymatic activity/volume] in Serum or Plasma 4 8 MEDENT ([facility]) Protein [Mass/volume] in Serum or Plasma 7.3 MED[facility] ([facility]) Sodium 128 [facility] ([facility] Aspartate aminotransferase [Enzymatic activity/volume] in Serum or Plasma 39 [facility] ([facility]) Urea nitrogen [Mass/volume] in Serum or Plasma 9 [facility] ([facility]) Glucose 55 70-100 [facility] ([facility] Creatinine For GFR 0.75 [facility] ([facility]) ID Date Data Source [id number] 11/12/2019 12:41:00 PM EDT [facility] ([facility]) Name Value Range Interpretation Code Description Data Sejal rce(s) Supporting Document(s) Hemoglobin A1c/Hemoglobin.total in Blood 6.2 MED[facility] ([facility]) ID Date Data Source [id number] 05/14/2019 10:58:00 AM EDT [facility] Name Value Range Interpretation Code Description Data Sejal rce(s) Supporting Document(s) Calcium [Mass/volume] in Serum or Plasma 8.6 MEDENT ([facility]) Sodium 132 MEDENT ([facility] Carbon dioxide, total [Moles/volume] in Serum or Plasma 27 MED[facility] ([facility]) Chloride [Moles/volume] in Serum or Plasma 98 MED[facility] ([facility]) Glucose 249 83-110 MED[facility] ([facility] Potassium [Moles/volume] in Serum or Plasma 3.9 MEDENT ([facility]) Blood Urea Nitrogen 14 7-18 MEDENT ([facility]) Glomerular filtration rate/1.73 sq M.pre dicted [Volume Rate/Area] in Serum or Plasma by Creatinine-based formula (MDRD) Laboratory test result MEDENT ([facility]) Creatinine 1.01 0.6-1.0 [facility] ([facility]) ID Date Data Source [id number] 05/13/2019 09:25:52 AM EDT [address] [id number] Name: HUAN CORDOVADOB: 1945Sex: MOrdering Provider: GRACE Martinholourdes Prov: GRACE Gustafson Provider: GRACE [place] Performed: NM GASTRIC EMPTYING LIQUIDExam Date: 05/13/2019 09:18MRN: [id number] Number: [id number] Class: OutpatientAccount #: [id number] for Exam: Gastrostomy complicationAbdominal pain, epigastricTechnique: Patient received 1 mCi of TECHNETIUM 99M labeled DTPA admixed with liquid orally.COMPARISON: NoneFINDINGS: A time activity curve was drawn over the region of the stomach. The liquid phase emptying half time is 5 minutes. There was no identifiable reflux during the dynamic portion of the study.IMPRESSION: Normal liquid phase gastric emptying(T1/2 of 19 minutes or less is normal).Report electronically signed by: ANA GARDNER On 05/13/2019 9:25 AMWorkstation ID: [id number] Name Value Range Interpretation Code Description Data Sejal rce(s) Supporting Document(s) ID Date Data Source [id number] 04/18/2019 04:48:00 PM EST [facility] EXAM: ABDOMINAL X-RAY. HISTORY: KUB, EPI GASTRIC PAIN TECHNIQUE: Three supine AP views of the abdomen were obtained. COMPARISON: None. FINDINGS: There is scattered gas throughout the colon. No dilated bowel loops to suggest obstruction. No abnormal intra-abdominal calcifications are identified. There is moderate facet arthropathy in the lower lumbar spine. Imaged lung bases are grossly clear. IMPRESSION: Nonobstructive bowel gas pattern. Professional interpretation performed at [facility] [place] . Name Value Range Interpretation Code Description Data [facility] rce(s) Supporting Document(s) ID Date Data Source [id number] 04/18/2019 02:15:00 PM EST [facility] Name Value Range Interpretation Code Description Data [facility] rce(s) Supporting Document(s) Follow Up [facility] SBUPPj4yZhSVZcPpIJXsYqoNZQafUPphISRzR7E1TKwmRc5XPPjtveGhKAPoAs6+NIStXL2rbg7iIVHy gMy 6mYSXnJfbxQ7VdJIWvr40OSANhPJkPFlKjHbZaUhK1KOOlPITbEQA8OnZhAsizFJ1qBZP7SBWtXEzfUX IkSATuRDO6BDztLH9pFMiyVOthJt6ECF8hb3OtNVDfVCRdXnfCWFskBDxqOJNbWUCbSYNwN965wpRnCH 2QxIWlRXm4DVRdIwW3QPVuOtZ3OLGuCtHsQqQrFUIy P9Spm235iuPckiR9TR4RF3PtIGR1ATz7Q4pqLlPvBQCgOMXtHH2xQtL8EEGsHv5NuNugJXKiASExVb2T yLn2SXK2XVXyGu8+Pj4+Th2vkgHgTwgCOYZhGT1qiq61TR4ClLWrFG0GUIopP14aTExsLc80IIwhKSQf CiPnSWp7Ch1iOeWox2QyV9GvBTs8F1sMCefvU0RoMD rsCA1zGIT7PCFbOs9+Dl8uXTTxPX18CTOmZWQYA0YutkRbssUkZEn0PVWlFc7+Uj3lchVwLshAOVQfZC 3oop73HK8HOS9znGksKEV9XQBwM98jfOZkX8ocLqNdD9ZzbAuvOOLnYQ8tR2WgLYekJSYmDW1fxmOsnS 9LcEt5PHOkRi9CeJQ5JAZvV90kQJElGCIQRTOpe2Cy WY7Ra0fhlnXwLHIrQW8RVVAdR6HRY1SlZ1zbyQpmKQHtIK6YBCqffLTnHZl3JF0FhCXwKIHdB80vlY7c BX65IMe+ZyE9clLahT0EwIvdd3KAYC611d6Z9+QtLv6KnIiPDRCLNAdoZEHY3P7RzGlEEGRRz9Mzp0uh 7gwafAYd/OS/8601jA6ohxm9oc0txac10g2U15ck63 [file] xB45U96WzOb2im/cb01QRWZ8cjRNW9f+SPORTS LEADERSHIP INSTRUCTOR/xcLSA4Lpqoe35b+lUPtJ7m2ZUDZqiZZ6Yon67apAx6IEr [file] /Q0Ii0aZubpAmAwiwFfBY45Y571PJuxU19LjaVU [file] eK2nvL9oc/YJg4jzaKzvPMxYon5nqa6z20Fx7dxEOAWll8k54Sfp1iyi8HJ1EsaFngExCe0Nno+herbicide sprayer+o w5/HPXHyQ+zNeH+t1X5rkVJZME6+EAY+t0t/AEWhTM XWz8Ei5dEjQiDp1rdGQ9I1X7AoqZ1PsA15FIu+zORzp7ThF2dsvfgDIJxAt013F3qtLNYy8q2gyBpXq5 dQI4e1woNWEY0UtlQO10cPAzbtszI9mETDc4UawKoq2R37Q35gi1cEZ5kUxa37NinFXIHf+oioey1pmr peB9Vjvh3FhualngOcJZ//Fa41Js8rA7OH4Nos54nm bYu+rgqUuOxfKvpKJ79VDoWs+MU+4Wwc/r2SbY+sJjFiyH8Umw/jLzaJev5tpWe37MhW32tz3VXUHvAX IWz/nL9kmFKaom1ZJJKuFbVVEcknYteCrSMF9YP92GG7t4aH2Oq32rK/x1GO5VxoTFL4bK134p9J+ELU W0ytZ8PNOIKhfmQhBsXD/GQuS8Xr+qR9uk6KziwDDG PU71qna0iJ5ThQ6YdD0zWCSZ+5lQaWlBV7OgLjMJV57wG2xMUuengUZEcTDqGUQjsxhl3TSord8LJ9ME oN8rudu+IHwactqnUeKw25DN8RGb3A15saAqru5f4nTQtcfBNi7lstP0v2/rKup/TbKUdDQ5X9qZD2Pb 3x6CXyuy4z3i6LX6TR78oivogaQo761zUj810wbcq3 [file] YXoCk0vDqIzeyYBq5zmL/HzE/XM/C09p8n7WaMGHiQlkSknO6JKLfDA+9opzkgp5vXLUxIchjeaMZ/patrol judge [file] b34DlS7d/nluAaa4TIDeEiZy2UxERutJVlMSDqo+TnJcSgWibBLNelD1mecoW/can filling room sweeper/U7CRIUworVq8NZ [file] 8DtnIwmoQq2gle5fMxLnd5QHK+x+building principal/EDwKHnjMQrfOUB+KL4PZLk19EhghcZmGQAq7gUwdcQeXZmIrB [file] wmiXAwGYUmpEY99Rv2IUUNO8fCIi2Ec8D0Uh02yWp/[employer]+fQ4LwvXIA29O1CDtoYPrhARRh3VT65KES8 Iki6vo9HBTJTtVvlWGYOOIMqbdIPWBBOtRjdQ71nIC [file] Juan Pablo+3WExX1aRiVZJBZ3Z+DHvgbBUnPfcr3kzPQAQb54HDJj23ZLoquc1onpsUiwYhMoX3AcaHGMcuaebw [file] Mary Jo/xatCTVta4DePD+l5Hjhivt6NodZ/0B2n8UkCmt [file] vp celebrity services/5cB8mhCzRG2YKHZjpLufeKBQbKH+gT4MfxyNoxo [file] GD/icu rn+rDL6cH5ys16Ic1qGIUuCPN26Rbq5cXL/sfugraCZKsnE5jur7DhhLfb3KaBRq3rNqUzidxDz8 [file] pgeu8XzWtpjf/y+chain tender/poQfLR7fm68ItySmwOL1Ae7 [file] 8FPTMBTt5pClEVdtECq0Ts+pd983jcM+9O27UsWiHsDzRNCeoeA5NqGtXz5Lv2XsbBuqT9Ffyud4/television repair teacher [file] NDIuhOgg2QX73q2/tool profiling machine set up operator+m5GNlXH32IGyZAkgHWePLxlo+wsO04nls1m/0s4rTqOj0nnvgukKUqnWpxvvH [file] José Antonio/Fai6npw6dsCJ7AvgAETS/1T0HreOeBHtUCsoOY [file] LwmP/4Hbp5dJhTppmqAuUZBGLHL68x1A2lnotZVAhffk/aviation tactical readiness officer/3PezQshFPebcik/bO2EZlLNawPCq1iX 0NsSz3MUYo055+pt/8bMA9+3T++jQrVwhkrPoEkUz96gMWgf2CRe/RgRy1i530IwWpf4wZgIlRU0CAKw YGfMg37U/UBPqfSVvlLVDWqRE76oFbg5pvf4BQDDrL TQ+Fabricio/l47Y1vzLXqX7c5f38tGX0rXuIcTxhh6slj5LjwAZDXEj2u5o1at6oQjKVLlU5WU1G8cZCT4PK [file] Heart Specialist+jYv3tAPFT13znALuDYp32fmA/sSZ3SeLb2Kuph [file] mJ3jDDpJlYT7rjH74G3koKsqnp5tGuVtt84fG2ZlyFCOCFyy7STylbbk/2CYe+vp celebrity services/jCu94G/1/H8T4j/ [file] [facility]+7Mmn6ZV+OpoDZ8RrqJ8KW0C2qCuDH [file] igWAB2aPSTl2ZtUiomN9/JeDbvTiLHKoLUMJf/Vx/Speech Language Specialist+Vjj1oB4vFOApxGk3NQC5OxK1djqnes1g+hpw [file] rwu64olUmi82+zBNHPDlBai6lM1Ch4+HvBjOgs/Crusher And Blender Operator [file] Sbq0zGsTCHuL+EqxYx8TGbftjkTiQkesPTqZnvbiIPWfLbMfOef15emWUEWcetFfzVF8nTuMHxN/h+building principal [file] em0eC3ZDvkHYPSmHqabUPsOaj/ydj/yl7o56HC4MQm3bEI9ggGTkUhFENbbeb2/Rosa M/zxT2ge+Fpqo9D [file] WeTqFGs5vOTuVhWoJO9CMZxqwnMcpWJqFV3PAbEj BR9gjy6BGoG3NZW2cQOxBd3VWKE3FxTsTB6LZOLGZ4X= Procedure Social History Code Duration Value Status Description Data Source(s ) Smoking 02/18/2020 12:00:00 AM EST Former Smoker completed Former Smoker eCW1 ([facility]) Smoking 02/18/2020 12:00:00 AM EST Former Smoker completed Former Smoker eCW1 ([facility]) Smoking 02/18/2020 12:00:00 AM EST Former Smoker completed Former Smoker eCW1 ([facility]) Smoking 02/18/2020 12:00:00 AM EST Former Smoker completed Former Smoker eCW1 ([facility]) Smoking 02/18/2020 12:00:00 AM EST Former Smoker completed Former Smoker eCW1 ([facility]) Smoking 02/18/2020 12:00:00 AM EST Former Smoker completed Former Smoker eCW1 ([facility]) Smoking 01/26/2020 12:00:00 AM EST Patient is a former smoker completed Patient is a former smoker MED[facility] ([facility]) Smoking 12/08/2019 12:00:00 AM EDT Patient is a former smoker completed Patient is a former smoker MEDENT ([facility]) Smoking 01/23/2019 12:00:00 AM EST Former Smoker completed Former Smoker eCW1 ([facility]) Smoking 01/23/2019 12:00:00 AM EST Former Smoker completed Former Smoker eCW1 ([facility]) Smoking 01/23/2019 12:00:00 AM EST Former Smoker completed Former Smoker eCW1 ([facility]) Vital Signs ID Date Data Source UNK Name Value Range Interpretation Code Description Data Source(s) Body mass index (BMI) [Ratio] 31.17 kg/m2 31.17 kg/m2 eCW1 ([facility]) Body height 68 [in_i] 68 [in_i] eCW1 ([facility]) Body weight [lb_av] eCW1 ([facility]) Diastolic blood pressure 72 mm[Hg] 72 mm[Hg] MEDENT ([facility]) sitting Systolic blood pressure 136 mm[Hg] 136 mm[Hg] M EDENT ([facility]) sitting Diastolic blood pressure 76 mm[Hg] 76 mm[Hg] MEDENT ([facility]) sitting, regular cuff Systolic blood pressure 136 mm[Hg] 136 mm[Hg] M EDENT ([facility]) sitting, regular cuff Respiratory rate 16 /min 16 /min MED[facility] ( [facility]) Heart rate 76 /min 76 /min [facility] ([facility]) Regular Body mass index (BMI) [Ratio] 31.0 kg/m2 31.0 k g/m2 MEDENT ([facility]) Body height 67.5 [in_i] 67.5 [in_i] [facility] ([facility]) 5'7.50" Body weight 201.00 [lb_av] 201.00 [lb_av] MEDEN T ([facility]) Diastolic blood pressure 72 mm[Hg] 72 mm[Hg] MEDENT ([facility]) sitting Systolic blood pressure 136 mm[Hg] 136 mm[Hg] M EDENT ([facility]) sitting Diastolic blood pressure 76 mm[Hg] 76 mm[Hg] MEDENT ([facility]) sitting, regular cuff Systolic blood pressure 136 mm[Hg] 136 mm[Hg] M EDENT ([facility]) sitting, regular cuff Respiratory rate 16 /min 16 /min MED[facility] ( [facility]) Heart rate 76 /min 76 /min [facility] ([facility]) Regular Body mass index (BMI) [Ratio] 30.9 kg/m2 30.9 k g/m2 MEDENT ([facility]) Body height 67.5 [in_i] 67.5 [in_i] MED[facility] ([facility]) 5'7.50" Body weight 200.00 [lb_av] 200.00 [lb_av] MEDEN T ([facility]) Body mass index (BMI) [Ratio] 28.9 kg/m2 28.9 k g/m2 MEDENT ([facility]) Body weight 190.00 [lb_av] 190.00 [lb_av] MEDEN T ([facility]) Body height 68 [in_i] 68 [in_i] MED[facility] ([facility]) 5'8" Respiratory rate 16 /min 16 /min MED[facility] ( [facility]) Body temperature 98.0 [degF] 98.0 [degF] MEDENT ([facility]) Diastolic blood pressure 62 mm[Hg] 62 mm[Hg] MEDENT ([facility]) Systolic blood pressure 132 mm[Hg] 132 mm[Hg] M EDENT ([facility]) Diastolic blood pressure 68 mm[Hg] 68 mm[Hg] eCW1 ([facility]) Systolic blood pressure 122 mm[Hg] 122 mm[Hg] e CW1 ([facility]) Body temperature 98.1 [degF] 98.1 [degF] eCW1 ( [facility]) Respiratory rate 18 /min 18 /min eCW1 ([facility]) Heart rate 82 /min 82 /min eCW1 ([facility]) Body mass index (BMI) [Ratio] 31.17 kg/m2 31.17 kg/m2 eCW1 ([facility]) Body height 68 [in_us] 68 [in_us] eCW1 ([facility]) Body weight Measured 205 [lb_av] 205 [lb_av] eC W1 ([facility]) Patient Treatment Plan of Care Planned Activity Planned Date Details Description Data Source (s) sildenafil 100 MG Oral Tablet 02/18/2020 12:00:00 AM EST eCW1 ([facility]) 1250 MG Testosterone 0.0162 MG/MG Topical Gel [Androge l] 02/18/2020 12:00:00 AM EST eCW1 ([facility]) sildenafil 100 MG Oral Tablet 02/18/2020 12:00:00 AM EST eCW1 ([facility]) 1250 MG Testosterone 0.0162 MG/MG Topical Gel [Androge l] 02/18/2020 12:00:00 AM EST eCW1 ([facility]) sildenafil 100 MG Oral Tablet 02/18/2020 12:00:00 AM EST eCW1 ([facility]) 1250 MG Testosterone 0.0162 MG/MG Topical Gel [Androge l] 02/18/2020 12:00:00 AM EST eCW1 ([facility]) 1250 MG Testosterone 0.0162 MG/MG Topical Gel [Androge l] 02/18/2020 12:00:00 AM EST eCW1 ([facility]) sildenafil 100 MG Oral Tablet 02/18/2020 12:00:00 AM EST eCW1 ([facility]) 1250 MG Testosterone 0.0162 MG/MG Topical Gel [Androge l] 02/18/2020 12:00:00 AM EST eCW1 ([facility]) sildenafil 100 MG Oral Tablet 02/18/2020 12:00:00 AM EST eCW1 ([facility]) 1250 MG Testosterone 0.0162 MG/MG Topical Gel [Androge l] 02/18/2020 12:00:00 AM EST eCW1 ([facility]) sildenafil 100 MG Oral Tablet 02/18/2020 12:00:00 AM EST eCW1 ([facility]) Ciprofloxacin 500 MG Oral Tablet [Cipro] 04/15/2019 12:00:00 AM EST eCW1 ([facility]) Ciprofloxacin 500 MG Oral Tablet [Cipro] 04/15/2019 12:00:00 AM EST eCW1 ([facility]) Ciprofloxacin 500 MG Oral Tablet [Cipro] 04/15/2019 12:00:00 AM EST eCW1 ([facility]) Ciprofloxacin 500 MG Oral Tablet [Cipro] 04/15/2019 12:00:00 AM EST eCW1 ([facility])
[2020-03-23] MEDS ORDERED: SILD100T PO (12:01)
[2020-03-23] MEDS ORDERED: GABA600T4 PO (12:01)
[2020-03-23] MEDS ORDERED: SPIR-10 PO (12:01)
[2020-03-23] MEDS ORDERED: NOVOINJ3 SC (12:04)
[2020-03-23] MEDS ORDERED: LOSA100T50 PO (12:04)
[2020-03-23] MEDS ORDERED: LANTINJ4 SC (12:04)
[2020-03-23] MEDS ORDERED: METO1TAB32 PO (12:04)
[2020-03-23] MEDS ORDERED: CITA20TA6 PO (12:04)
[2020-03-23] MEDS ORDERED: PLAV1TAB2 PO (12:04)
[2020-03-23] MEDS ORDERED: ROSU40TA4 PO (12:04)
[2020-03-23] MEDS ORDERED: DEXI60CA2 PO (12:04)
[2020-03-23] MEDS ORDERED: ECOT81TA5 PO (12:04)
[2020-03-23] MEDS ORDERED: MIRA3350 PO (12:06)
[2020-03-23] MEDS ORDERED: NITR0.3S SL (12:06)
[2020-03-23] MEDS ORDERED: HYDR-4517 PO (12:06)
--- NOTE | 2020-03-23 12:17 | REP ---
INDICATION: fall injury. COMPARISON: Comparison radiographs are from December 03, 2018.. TECHNIQUE: Helical scanning is acquired and overlapping 2 mm high resolution axial images were generated and reviewed at bone and soft tissue window settings. Coronal and sagittal multiplanar re-formations images are generated. FINDINGS: There is no evidence of cervical spine element fracture. No skull base fracture is seen. Cervical vertebral body heights are preserved. Alignment is normal. Facet joints are normally aligned bilaterally at each cervical level on multiplanar re-formations images. There is no evidence of intraspinal or paraspinal hematoma. No extra vertebral abnormality is seen. Vascular calcification is noted. There is a levoconvex curve in the cervical spine seen on coronal MPR images. There are degenerative spondylosis changes. Degenerative disc disease is seen to some degree at each level, least pronounced is C4-5. Osteoarthritic facet disease changes are noted bilaterally. 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 These findings are felt to be unchanged compared to the prior radiographs. IMPRESSION: Degenerative spondylosis changes as noted on prior radiographs. No fracture or other traumatic abnormality seen. Otherwise negative.. <Electronically signed by Grey Betancourt > 03/23/20 [id number]
--- NOTE | 2020-03-23 12:18 | REP ---
INDICATION: fall injury. COMPARISON: 12/23/2015. TECHNIQUE: CT BRAIN PERFORMED IN THE AXIAL PLANE. CORONAL RECONSTRUCTION IMAGES ARE PERFORMED. FINDINGS: There is a small amount of subchorionic hemorrhage anterior to the brainstem extending into the suprasellar cistern. Small amount of subchorionic hemorrhage is also seen in the 3rd and 4th ventricles. There is no other evidence of acute intracranial hemorrhage elsewhere. Moderate atrophy is again noted. There is no midline shift, mass effect or evidence of herniation. There is no evidence of a skull fracture. There are vascular calcifications of the carotid siphons. IMPRESSION: Relatively small subchorionic hemorrhage anterior to the brainstem extending into the suprasellar cistern. There is also small amount of hemorrhage in the 3rd and 4th ventricles. Critical Findings: Acute subchorionic hemorrhage anterior to the brainstem and in the 3rd and 4th ventricles. The critical information above was relayed directly by me by telephone to HUMZA ALEX on 03/23/2020 at 12:12 pm with readback verification. <Electronically signed by Mehul Bingham > 03/23/20 [id number]
[2020-03-23] MEDS ORDERED: MORPHINE 2 MG/ML 1ML VIAL (J2270) IV ONE (12:30)
[2020-03-23] MEDS ORDERED: BOOSTRIX/ADACEL VACCINE (DIPHTH/PERTUSS/ACELL/TETANUS) 0.5ML SYR IM ONE (12:30)
--- NOTE | 2020-03-23 12:35 | REP ---
INDICATION: Trauma. COMPARISON: 06/02/2011. TECHNIQUE: SINGLE PORTABLE AP VIEW OF THE CHEST WAS PERFORMED. FINDINGS: There is mild stable chronic interstitial prominence diffusely bilaterally. There is mild elevation of the right hemidiaphragm unchanged. No new infiltrate is seen. The heart is upper limits of normal in size. There is calcification of the thoracic aorta. The mediastinal silhouette is unchanged. IMPRESSION: NO ACUTE PULMONARY DISEASE. <Electronically signed by Mehul Bingham > 03/23/20 [id number]
[2020-03-23 12:38] LABS: BASO % 0.6 % (0.0-1.0); EOS # 0.2 10^3/uL (0.0-0.5); EOS % 2.3 % (0.0-3.0); HEMATOCRIT 35.9 % (42.0-52.0); HEMOGLOBIN 11.4 g/dl (13.5-17.5); LYMPH # 1.4 10^3/uL (1.5-5.0); MEAN CORPUSCULAR HGB CONC 31.8 g/dl (32.0-36.5); MEAN CORPUSCULAR VOLUME 97.6 fl (80.0-96.0); MONO # 0.6 10^3/uL (0.0-0.8); MONO % 9.4 % (0.0-5.0); NEUTROPHILS # 4.6 10^3/uL (1.5-8.5); NEUTROPHILS % 66.8 % (36.0-66.0); PLATELET COUNT, AUTOMATED 268 10^3/uL (150-450); RED BLOOD COUNT 3.68 10^6/uL (4.30-6.10); WHITE BLOOD COUNT 6.8 10^3/uL (4.0-10.0)
[2020-03-23] MEDS ORDERED: NS 1,000 ML IV SCH (12:42)
[2020-03-23 12:52] LABS: PROTHROMBIN TIME 13.4 SECONDS (12.5-14.3)
[2020-03-23 12:53] LABS: PARTIAL THROMBOPLASTIN TIME 30.1 SECONDS (24.2-38.5)
--- OUTSIDE RECORDS SUMMARY | 2020-03-23 12:56 | CCD ---
Author Author [facility] Organization [facility] Address Unknown Phone Unavailable Care Team Providers Care Latin Dance Instructor Name Role Phone Madison Price PA Unavailable [...] Symenow, Madison Tamara PA Unavailable Unavailable Symenow, Madsion Tamara PA Unavailable Unavailable Symenow, Madison Tamara [...] Unavailable Unavailable Kathy PICKARD MD Unavailable Unavailable Kahty PICKARD MD Unavailable Unavailable Kathy PICKARD MD [...] NORAH MELGOZA Unavailable Unavailable PICKARD E NORAH MELGOAZ Unavailable Unavailable PICKARD E NORAH MELGOZA Unavailable [...] E NORAH MELGOZA Unavailable Unavailable Gaulke, Tyra 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 Unavailable Unavailable Gaulke, Tyra 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 Unavailable Unavailable Gaulke, Tyra 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 Unavailable Unavailable Gaulke, Tyra 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 Unavailable Unavailable Gaulke, Tyra 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 Unavailable Unavailable Gaulke, Tyra 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 Unavailable Unavailable Gaulke, Tyra 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 Unavailable Unavailable Gaulke, Tyra 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 Unavailable Unavailable Gaulke, Tyra 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 Unavailable Unavailable Gaulke, Tyra 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 Unavailable Unavailable Gaulke, Tyra 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 Unavailable Unavailable Gaulke, Tyra 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 Unavailable Unavailable Gaulke, Tyra 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 Unavailable Unavailable Gaulke, Tyra 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 Unavailable Unavailable Gaulke, Tyra 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 Unavailable Unavailable Gaulke, Tyra 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 Unavailable Unavailable Gaulke, Tyra 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 Unavailable Unavailable Gaulke, Tyra 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 Unavailable Unavailable Gaulke, Tyra 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 Unavailable Unavailable Gaulke, Tyra 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 Unavailable Unavailable Gaulke, Tyra 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 Unavailable Unavailable Gaulke, Tyra 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 Unavailable Unavailable Gaulke, Tyra 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 Unavailable Unavailable Gaulke, Tyra 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 Unavailable Unavailable Gaulke, Tyra 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 Unavailable Unavailable Gaulke, Tyra 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 Unavailable Unavailable Gaulke, Tyra 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 Unavailable Unavailable Gaulke, Tyra 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 Unavailable Unavailable Gaulke, Tyra 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 Unavailable Unavailable Gaulke, Tyra 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 Unavailable Unavailable Gaulke, Tyra 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 Unavailable Unavailable Gaulke, Tyra 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 Unavailable Unavailable Gaulke, Tyra 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 Unavailable Unavailable Gaulke, Tyra 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 Unavailable Unavailable Gaulke, Tyra 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 Unavailable Unavailable Emma Nash MD Unavailable Unavailable [...] Unavailable Brenden SCHMIDT MD ([place]) Unavailable Unavailab Brenden Huang MD ([place]) Unavailable Unavailab le ROXANA [...] MD Unavailable Unavailab le ROXANA (WILLARD), Brenden EWDARDS MD Unavailable Unavailab le ROXANA (WILLARD), Brenden [...] Brenden EDWARDS MD Unavailable Unavailab le ROXANA (WILLADR), Brenden EDWARDS MD Unavailable Unavailab le ROXANA [...] MD Unavailable Unavailab le ROXANA (WILLARD), Brenden EWDARDS MD Unavailable Unavailab le ROXANA (WILLARD), Brenden [...] (WILLARD), Brenden EDWARDS MD Unavailable Unavailab le RXOANA (WILLARD), Brenden EDWARDS MD Unavailable Unavailab le [...] ROXANA (WILLARD), Brenden EDWARDS MD Unavailable Unavailab kia SCHMIDT (WILLARD), Brenden EDWARDS MD Unavailable Unavailab le [...] is protected by Article 27-F of the [facility] Public Health law. If you continue you may have access to information: Regarding HIV / AIDS; Provided by facilities licensed or operated by the [facility] Office of Mental Health; or Provided by the [facility] Office for People With Developmental Disabilities. If such information is present, then the following [facility] mandated warning applies: This information has [...] law may result in a fine or skilled nursing sentence or both. A general authorization for the release of medical or other information is NOT sufficient authorization for further disc losure. Family History Family Member Name Family Member Gender Family Member Status Date o f Status Description Data Source(s) Unknown Unknown Problem [facility] ([facility]) Encounters Encounter Providers Location Date Indications Data Source(s ) Outpatient 03/23/2020 12:43:00 PM EST fall from ladder, brain bleed [facility] fall from ladder, brain bleed [place] [address] [facility] [address] 03/16/2020 12:00:00 AM EST eCW1 ([facility]) [place] [address] [facility] [address] 03/16/2020 12:00:00 AM EST eCW1 ([facility] [place] [address] [facility] [address] 03/16/2020 12:00:00 AM EST [facility]1 [facility] [place] [address] [facility] [address] 02/23/2020 12:00:00 AM EST [facility] [place] [place] [address] [facility] [address] 02/23/2020 12:00:00 AM EST [facility]CW1 [facility] TeleMedicine Est. Pt. Level 3 [address] [place] [address] 02/18/2020 12:00:00 AM EST eCW1 ([facility] [place]) [place] [address] [facility] [address] 02/15/2020 12:00:00 AM EST eCW1 [facility]) Outpatient Attender: Tamara GILLESPIE Main Office 01/26/2020 08:45:00 AM EST [facility] ([facility]) Unknown [address] [facility] [place] [address] 01/13/2020 12:00:00 AM EST eCW1 [facility]) Outpatient Attender: Amilcar Naik MD [facility] 12/08/2019 02:00:00 PM EDT [facility] ([facility]) [place] [address] [facility] [address] 08/13/2019 12:00:00 AM EDT eCW1 ([facility] [place] [address] [facility] [address] 08/04/2019 12:00:00 AM EDT eCW1 ([facility] [place]) Outpatient Attender: Tamara GILLESPIE Main Office 07/24/2019 09:45:00 AM EDT MED[facility] ([facility]) Outpatient Attender: Julian Nash MD [place] 06/25/2019 02:00:00 PM EDT [facility] ([facility]) Outpatient Attender: GRACE SCHMIDT ([facility]) MDReferrer: GRACE SCHMIDT MD ([place]) [id number] 05/13/2019 08:18:00 AM EDT - 05/13/2019 11:59:[address] [facility] Patient discharged. Outpatient 04/18/2019 03:30:00 PM EST [facility] [address] [place] [address] 04/16/2019 12:00:00 AM EST eCW1 ([facility]) Attender: GRACE SCHMIDT ([facility]) MDAttender: Tyra Wong NPReferrer: NORAH PICKARD MD 04/15/2019 08:20:02 PM EST [facility] [address] [place] [address] 04/15/2019 12:00:00 AM EST eCW1 ([facility]) [address] [place] [address] 04/15/2019 12:00:00 AM EST eCW1 ([facility]) [address] [place] [address] 04/15/2019 12:00:00 AM EST eCW1 ([facility]) [address] [place] [address] 02/04/2019 12:00:00 AM EST eCW1 ([facility]) Medications Medication Brand Name Start Date Product Form Dose Route Admi nistrative Instructions Pharmacy Instructions Status Indications Reaction Description Data Source(s) sildenafil 100 MG Oral Tablet Sildenafil Citrate 100 M G Sildenafil Citrate 100 MG 02/18/2020 12:00:00 AM EST active Sildenafil Citrate 100 MG eCW1 ([facility]) 1250 MG Testosterone 0.0162 MG/MG Topica l Gel [Androgel] AndroGel 20.25 MG/1.25GM (1.62%) AndroGel 20.25 MG/1.25GM (1.62%) 02/18/2020 12:00:00 AM EST active AndroGel 20.25 MG/1.25GM (1.62%) eCW1 ([facility]) 1250 MG Testosterone 0.0162 MG/MG Topica l Gel [Androgel] AndroGel 20.25 MG/1.25GM (1.62%) AndroGel 20.25 MG/1.25GM (1.62%) 02/18/2020 12:00:00 AM EST active AndroGel 20.25 MG/1.25GM (1.62%) [facility] ([facility]) sildenafil 100 MG Oral Tablet Sildenafil Citrate 100 M G Sildenafil Citrate 100 MG 02/18/2020 12:00:00 AM EST active Sildenafil Citrate 100 MG eCW1 ([facility]) 1250 MG Testosterone 0.0162 MG/MG Topica l Gel [Androgel] AndroGel 20.25 MG/1.25GM (1.62%) AndroGel 20.25 MG/1.25GM (1.62%) 02/18/2020 12:00:00 AM EST active AndroGel 20.25 MG/1.25GM (1.62%) [facility] ([facility]) sildenafil 100 MG Oral Tablet Sildenafil Citrate 100 M G Sildenafil Citrate 100 MG 02/18/2020 12:00:00 AM EST active Sildenafil Citrate 100 MG eCW1 ([facility]) sildenafil 100 MG Oral Tablet Sildenafil Citrate 100 M G Sildenafil Citrate 100 MG 02/18/2020 12:00:00 AM EST active Sildenafil Citrate 100 MG eCW1 ([facility]) 1250 MG Testosterone 0.0162 MG/MG Topica l Gel [Androgel] AndroGel 20.25 MG/1.25GM (1.62%) AndroGel 20.25 MG/1.25GM (1.62%) 02/18/2020 12:00:00 AM EST active AndroGel 20.25 MG/1.25GM (1.62%) W ([facility]) 1250 MG Testosterone 0.0162 MG/MG Topica l Gel [Androgel] AndroGel 20.25 MG/1.25GM (1.62%) AndroGel 20.25 MG/1.25GM (1.62%) 02/18/2020 12:00:00 AM EST active AndroGel 20.25 MG/1.25GM (1.62%) eCW1 ([facility]) sildenafil 100 MG Oral Tablet Sildenafil Citrate 100 M G Sildenafil Citrate 100 MG 02/18/2020 12:00:00 AM EST active Sildenafil Citrate 100 MG eCW1 ([facility]) 1250 MG Testosterone 0.0162 MG/MG Topica l Gel [Androgel] AndroGel 20.25 MG/1.25GM (1.62%) AndroGel 20.25 MG/1.25GM (1.62%) 02/18/2020 12:00:00 AM EST active AndroGel 20.25 MG/1.25GM (1.62%) eCW1 ([facility]) sildenafil 100 MG Oral Tablet Sildenafil Citrate 100 M G Sildenafil Citrate 100 MG 02/18/2020 12:00:00 AM EST active Sildenafil Citrate 100 MG [facility] ([facility]) 12 HR Pseudoephedrine Hydrochloride 120 MG Extended Re lease Oral Tablet Pseudoephedrine HCL ER 01/25/2020 12:00:00 AM EST ORAL active [facility] ([facility]) Super B Complex Maxi 01/25/2020 12:00:00 AM EST ORAL active [facility] ([facility]) gabapentin 800 MG Oral Tablet Gabapentin 01/25/2020 12:00:00 AM EST ORAL active [facility] ([facility]) dexlansoprazole 60 MG Delayed Release Oral Capsule [Dexilant ] Dexilant 01/25/2020 12:00:00 AM EST ORAL active [facility] ([facility]) gabapentin 600 MG Oral Tablet Gabapentin 01/25/2020 12:00:00 AM EST ORAL active [facility] ([facility]) Vitamin B 12 1 MG Oral Tablet Vitamin B-12 01/25/2020 12:00:00 AM EST ORAL active [facility] ([facility]) Acetaminophen 325 MG / Hydrocodone Bitartrate 5 MG Ora l Tablet Hydrocodone-Acetaminophen 01/25/2020 12:00:00 AM EST ORAL active [facility] ([facility]) 3 ML Insulin Glargine 100 UNT/ML Pen Injector [Lantus] Lantu s Solostar 01/25/2020 12:00:00 AM EST active [facility] ([facility]) Azelastine HCL (Nasal) Azelastine HCL (Nasal) 12/08/2019 12:00:00 AM E DT active [facility] ([facility]) Fluticasone Propionate Fluticasone Propionate 12/08/2019 12:00:00 AM E DT active [facility] ([facility]) technetium TC99m (DTPA) injection 1 millicurie 020 09:00:00 AM EDT 1 mCi Intravenous completed 1 millic urie, Intravenous, Once, Tu05/13/19 at 0900, For [address] [facility] Medication administered onsite Ciprofloxacin 500 MG Oral Tablet [Cipro] Cipro 500 MG Cipro 500 MG 04/15/2019 12:00:00 AM EST 1.0 {tablet} active Ci pro 500 MG eCW1 ([facility]) Ciprofloxacin 500 MG Oral Tablet [Cipro] Cipro 500 MG Cipro 500 MG 04/15/2019 12:00:00 AM EST 1.0 {tablet} active Ci pro 500 MG eCW1 ([facility]) Ciprofloxacin 500 MG Oral Tablet [Cipro] Cipro 500 MG Cipro 500 MG 04/15/2019 12:00:00 AM EST 1.0 {tablet} active Ci pro 500 MG eCW1 ([facility]) Ciprofloxacin 500 MG Oral Tablet [Cipro] Cipro 500 MG Cipro 500 MG 04/15/2019 12:00:00 AM EST active 1 tablet eCW1 ([facility]) Nifedipine 10 MG Oral Capsule Nifedipine 02/05/2019 12:00:00 AM EST completed [facility] ([facility]) Insurance Providers Payer name Policy type / Coverage type Policy ID Covered democrat ID Covered democrat's relationship to canales Policy Canales Plan Information EXCELLUS C [id number] Self [id number] MEDICARE A [id number] Self [id number] A MEDICARE [id number] SP [id number] BCBS FEDERAL EMPLOYEE PROGRAM [id number] SP [id number] FOR LIFE [id number] SP [id number] PGBA [place] [id number] SP [id number] SELF PAY ONLY [id number] SP [id number] BCBS FEDERAL EMPLOYEE PROGRAM [id number] SP [id number] MEDICARE C [id number] S [id number] FOR LIFE O [id number] S [id number] BC BS [place] FEDERAL B [id number] S [id number] EXCELLUS BCBS [id number] MEDICARE [id number] MEDICARE [id number] Nic [id number] EXCELLUS BCBS [id number] Nic [id number] Nic [id number] BCBS FEDERAL EMPLOYEE PROGRAM [id number] SP [id number] MEDICARE [id number] SP [id number] M90 For Life Secondary ONLY [id number] 0 [id number] [facility] SECONDARY [id number] [place] [id number] 0 [id number] ANSI-Commercial [id number] ANSI-Medicare Part B [id number] ANSI-Commercial [id number] ANSI-Commercial [id number] ANSI-Commercial [id number] ANSI-Medicare Part B [id number] ANSI-Medicare Part B [id number] ANSI-Commercial [id number] ANSI-Commercial [id number] ANSI-Commercial [id number] ANSI-Medicare Part B [id number] ANSI-Commercial [id number] ANSI-Commercial [id number] ANSI-Commercial [id number] ANSI-Medicare Part B [id number] ANSI-Commercial [id number]-[id number]-[id number] ANSI-Commercial [id number]-[id number] ANSI-Medicare Part B [id number] ANSI-Medicare Part B [id number] ANSI-Commercial [id number]-vm2t-[id number] ANSI-Commercial [id number]-c4sd-[id number] [id number]-b3gb-20m9-[id number] For Life - [facility] Part B [id number] Self [id number] Medicare (Part B) Medicare Primary [id number] Self [id number] [facility] Part B [id number] Self [id number] [facility] Life [facility] [id number] Self [id number] Medicare (Part B) Medicare Primary [id number] Self [id number] ANSI-Medicare Part B [id number] ANSI-Commercial [id number] ANSI-Commercial [id number]-fcxa-[id number] ANSI-Commercial [id number] ANSI-Medicare Part B [id number] ANSI-Commercial [id number]-[id number]-ln23-[id number] [facility]-Medicare Part B [id number] ANSI-Commercial [id number]-[id number]-[id number] [id number]-[id number] ANSI-Commercial [id number] ANSI-Medicare Part B [id number] ANSI-Commercial [id number]-k3ll-[id number] ANSI-Commercial [id number]-[id number] ANSI-Commercial [id number]-25v0-p90e-[id number] [id number]-23e7-p24y-yfy06p01e7ft ANSI-Commercial [id number]-yu7v-[id number] [id number]-te4l-3r28-4g28-[id number] ANSI-Medicare Part B [id number] ANSI-Commercial [id number]-5tby-[id number]-[id number] ANSI-Medicare Part B [id number] ANSI-Commercial [id number]-f968-[id number] WPS FOR LIFE [id number] 0 [id number] MEDICARE [id number] A ANSI-Medicare Part B [id number] ANSI-Commercial [id number]-[id number]-jq9z-[id number]-e2m0-[id number] ANSI-Commercial [id number]-y2t4-80pt-y5co-8quo4x2eue9t [id number]-t1vz-6utj7u8grl7j For Life - [facility] Part B [id number] [facility] [id number] Medicare (Part B) Medicare Primary [id number] Self [id number] ANSI-Commercial [id number] ANSI-Commercial [id number]-[id number] ANSI-Medicare Part B [id number] ANSI-Commercial [id number]-[id number] ANSI-Commercial [id number] ANSI-Medicare Part B [id number] [employer] Employee Program J [id number] SELF [id number] Medicare C [id number] SELF [id number] A For Life F [id number] SELF [id number] [employer] Employee Program J [id number] SELF [id number] Medicare C [id number] SELF [id number] A For Life - WPS [employer] Part B [id number] Self [id number] Medicare (Part B) Medicare Primary [id number] Self [id number] For Life - WPS [employer] Part B [id number] Self [id number] Medicare (Part B) Medicare Primary [id number] Self [id number] Medicare Part B [facility] Other 0 Se lf 0 BCBS of [facility] Other 0 Self 0 Medicare Part B of [facility] Other 0 Se lf 0 [place] Other 0 Self 0 [place] [employer]) Medigap Part B [id number] Self [id number] BS [place] Medigap Part B [id number] Self [id number] [place] Primary [id number] Self [id number] BS Fed Plan Medigap Part B [id number] Self [id number] EXCELLUS BCBS FEDERAL [id number] SP [id number] [place] [employer] (TFL) Medigap Part B [id number] Self [id number] BS [place] Medigap Part B [id number] Self [id number] [place] Primary [id number] Self [id number] For Life - WPS [employer] Part B [id number] Self [id number] Medicare (Part B) Medicare Primary [id number] Self [id number] [place] [employer] (T[place]) Medigap Part B [id number] Self [id number] BS [place] Medigap Part B [id number] Self [id number] [place] Primary [id number] Self [id number] For Life Medigap Part B [id number] Self [id number] BS Federal Medigap Part B [id number] Self [id number] [place] Primary [id number] Self [id number] [place] BC[place] FEDERAL [id number] SP [id number] For Life - WPS Medigap Part B [id number] Self [id number] Medicare (Part B) Medicare Primary [id number] Self [id number] [place] [employer] (T[place]) Medigap Part B [id number] Self [id number] BS [place] Medigap Part B [id number] Self [id number] [place] Primary [id number] Self [id number] [place] [employer] (T[place]) Medigap Part B [id number] Self [id number] BS [place] Medigap Part B [id number] Self [id number] [place] Primary [id number] Self [id number] [place] [employer] (T[place]) Medigap Part B [id number] Self [id number] BS [place] Medigap Part B [id number] Self [id number] [place] Primary [id number] Self [id number] For Life Medigap Part B Self BS Federal Medigap Part B Self [place] Primary Self [place] [place] O [id number] S [id number] BC BS [place] FED[place]AL B [id number] S [id number] MEDICARE C [id number] S [id number] A Medicare (Part B) Medicare Primary Self For Life - [place]PS Medigap Part B Self BC/BS Federal Medigap Part B Self [place] [employer] (T[place]) Medigap Part B Self BS [place] Medigap Part B Self BS Fed Plan Medigap Part B Self [place] Medicare Primary Self Health Net Federal [employer] Medigap Part B Self [employer] Medigap Part B Self [place] Medicare Primary Self Medicare Medicare Primary Self U [id number] Self [id number] BC BS [place] FEDERAL [id number] SP [id number] SELF PAY 2 UNAVAILABLE 1 UNAVAILA BLE BC FEP MEMBERS 1 [id number] 1 [id number] MEDICARE 4 [id number] 1 [id number] A MEDICARE [id number] SP [id number] SELF PAY UNAVAILABLE UNAVAILA BLE [id number] A [id number] Problems, Conditions, and Diagnoses Code Display Name Description Problem Type Effective Dates Data Source(s) D64.9 898690385 Anemia, unspecified type Problem 02/18/2020 12:00:00 AM EST eCW1 ([facility]) F98.4 [id number] Repetitive rocking movements Problem 020 12:00:00 AM EST eCW1 ([facility]) [id number] Essential hypertension Essential hypertension Problem 12/02/2019 12:00:00 AM EDT MEDENT ([facility]) G89.29 [id number] Other chronic pain Problem 08/04/2019 12:00: 00 AM EDT eCW1 ([facility]) M54.41 [id number] Lumbago with sciatica, right side Problem 08/04/2019 12:00:00 AM EDT eCW1 ([facility]) G89.29 52135594 Other chronic pain Problem 08/04/2019 12:00: 00 AM EDT eCW1 ([facility]) M54.41 762606261 Lumbago with sciatica, right side Problem 08/04/2019 12:00:00 AM EDT eCW1 ([facility]) [id number] Pure hypercholesterolemia Pure hypercholesterolemia Pr oblem 06/25/2019 12:00:00 AM EDT MEDENT ([facility]) [id number] Essential hypertension Essential hypertension Problem 06/25/2019 12:00:00 AM EDT MEDENT ([facility]) fall from ladder, brain bleed fall from ladder, brain bleed Diagnosis 03/23/2020 12:44:07 PM [facility] R10.13 Epigastric pain Epigastric pain Diagnosis 05/13/2019 08:1 8:[address] [facility] Surgeries/Procedures Procedure Description Date Indications Data Source(s) ECG ROUTINE ECG W/LEAST 12 LDS W/I&R 01/26/2020 12:00: 00 AM EST MEDENT ([facility]) Audiometry Threshold Evaluation & Speech Recognition 12/08/2019 12:00:00 AM EDT MEDENT ([facility]) TYMPANOMETRY 12/08/2019 12:00:00 AM EDT M EDENT ([facility]) THER ACTV DIR PT CONTACT BY PROVIDER EACH 15 MIN 09/03 12:00:00 AM EDT MEDENT ([facility]) THER ACTV DIR PT CONTACT BY PROVIDER EACH 15 MIN 08/20 12:00:00 AM EDT MEDENT ([facility]) THER ACTV DIR PT CONTACT BY PROVIDER EACH 15 MIN 08/17 12:00:00 AM EDT MEDENT ([facility]) THER ACTV DIR PT CONTACT BY PROVIDER EACH 15 MIN 08/13 12:00:00 AM EDT MEDENT ([facility]) THER ACTV DIR PT CONTACT BY PROVIDER EACH 15 MIN 08/10 12:00:00 AM EDT MEDENT ([facility]) THER ACTV DIR PT CONTACT BY PROVIDER EACH 15 MIN 08/06 12:00:00 AM EDT MEDENT ([facility]) Physical Therapy Eval Moderate 08/05/2019 12:00:00 AM EDT MEDENT ([facility]) ECG ROUTINE ECG W/LEAST 12 LDS W/I&R 07/24/2019 12:00: 00 AM EDT MEDENT ([facility]) GASTRIC EMPTYING STUDY NM GASTRIC EMPTYING LIQUID Routine 05/13/2019 9:18 AM EDT Abdominal pain, epigastric 05/13/2019 01:18:48 PM EDT Abdomi nal pain, epigastric [facility] Abdominal pain, epigastric MYOCARDIAL SPECT MULTIPLE STUDIES 02/11/2019 12:00:00 AM EST MEDENT ([facility]) CV STRS TST XERS&/OR RX CONT ECG PHYS SI&R 02/11/2019 12:00:00 AM EST MEDENT ([facility]) Results ID Date Data Source [id number] 02/17/2020 12:00:00 AM EST [facility] Name Value Range Interpretation Code Description Data Sejal rce(s) Supporting Document(s) SARS-CoV-2 (COVID-19) RNA [Presence] in Respiratory specimen by XIANG with probe detection [facility] This lab was ordered by [facility] and reported by [employer] ID Date Data Source [id number] 02/10/2020 12:00:00 AM EST [facility] Name Value Range Interpretation Code Description Data Sejal rce(s) Supporting Document(s) 2019-nCoV RNA XXX XIANG+probe-Imp [facility] This lab was ordered by [facility] and reported by [employer] ID Date Data Source [id number] 11/12/2019 12:41:00 PM EDT MEDENT ([facility]) Name Value Range Interpretation Code Description Data Sejal rce(s) Supporting Document(s) White Blood Count 5.5 4.0-10.0 MEDENT ([facility]) Platelets 314 150-450 [facility] Red Blood Count 3.93 4.30-6.10 MEDENT ([facility]) Hematocrit 38.6 MEDENT ([facility]) Hemoglobin 12.6 MEDENT ([facility]) ID Date Data Source [id number] 11/12/2019 12:41:00 PM EDT MEDENT ([facility]) Name Value Range Interpretation Code Description Data Sejal rce(s) Supporting Document(s) Cholesterol 97 MEDENT ([facility]) Triglycerides 196 MEDENT ([facility]) HDL 30 MEDENT ([facility] Cholesterol in LDL [Mass/volume] in Serum or Plasma by calculation 28 MEDENT ([facility]) Chol/HDL Ratio 3.233 MEDENT ([facility]) ID Date Data Source [id number] 11/12/2019 12:41:00 PM EDT MEDENT ([facility]) Name Value Range Interpretation Code Description Data Sejal rce(s) Supporting Document(s) Albumin [Mass/volume] in Serum or Plasma 4.1 MEDENT ([facility]) Calcium [Mass/volume] in Serum or Plasma 8.9 MEDENT ([facility]) Alanine aminotransferase [Enzymatic activity/volume] in Serum or Pl asma 46 MEDENT ([facility]) Chloride [Moles/volume] in Serum or Plasma 95 MEDENT ([facility]) Carbon dioxide, total [Moles/volume] in Serum or Plasma 29 MEDENT ([facility]) Potassium [Moles/volume] in Serum or Plasma 4.3 MEDENT ([facility]) Alkaline phosphatase [Enzymatic activity/volume] in Serum or Plasma 4 8 MEDENT ([facility]) Protein [Mass/volume] in Serum or Plasma 7.3 MEDENT ([facility]) Sodium 128 MEDENT ([facility] Aspartate aminotransferase [Enzymatic activity/volume] in Serum or Plasma 39 MEDENT ([facility]) Urea nitrogen [Mass/volume] in Serum or Plasma 9 MEDENT ([facility]) Glucose 55 70-100 MEDENT ([facility] Creatinine For GFR 0.75 MEDENT ([facility]) ID Date Data Source [id number] 11/12/2019 12:41:00 PM EDT MEDENT ([facility]) Name Value Range Interpretation Code Description Data Sejal rce(s) Supporting Document(s) Hemoglobin A1c/Hemoglobin.total in Blood 6.2 MEDENT ([facility]) ID Date Data Source [id number] 05/14/2019 10:58:00 AM EDT MEDENT ([facility]) Name Value Range Interpretation Code Description Data Sejal rce(s) Supporting Document(s) Calcium [Mass/volume] in Serum or Plasma 8.6 MEDENT ([facility]) Sodium 132 MEDENT ([facility]) Carbon dioxide, total [Moles/volume] in Serum or Plasma 27 MEDENT ([facility]) Chloride [Moles/volume] in Serum or Plasma 98 MEDENT ([facility]) Glucose 249 83-110 MEDENT ([facility]) Potassium [Moles/volume] in Serum or Plasma 3.9 MEDENT ([facility]) Blood Urea Nitrogen 14 7-18 MEDENT ([facility]) Glomerular filtration rate/1.73 sq M.pre dicted [Volume Rate/Area] in Serum or Plasma by Creatinine-based formula (MDRD) Laboratory test result MEDENT ([facility]) Creatinine 1.01 0.6-1.0 MEDENT ([facility]) ID Date Data Source [id number] 05/13/2019 09:25:52 AM EDT [address] [address] Name: HUAN Gutierrez TASHADOB: 1945Sex: MOrdering Provider: GRACE SCHMIDTAuthoricarly Prov: GRACE SCHMIDTRefshaun Provider: GRACE SCHMIDTProcedure Performed: NM GASTRIC EMPTYING LIQUIDExam Date: 05/13/2019 09:18MRN: [id number] Number: [id number] Class: OutpatientAccount #: [id number] for Exam: Gastrostomy complicationAbdominal pain, epigastricTechnique: Patient [...] ANA GARDNER On 05/13/2019 9:25 AMWorkstation ID: [id number] Name Value Range Interpretation Code Description Data [facility] rce(s) Supporting Document(s) ID Date Data Source [id number] 04/18/2019 04:48:00 PM EST [facility] EXAM: ABDOMINAL X-RAY. HISTORY: [...] bowel gas pattern. Professional interpretation performed at [facility] . Name Value Range Interpretation Code Description Data [facility] rce(s) Supporting Document(s) ID Date Data Source [id number] 04/18/2019 02:15:00 PM EST [facility] Name Value Range Interpretation Code Description Data [facility] rce(s) Supporting Document(s) Follow Up [facility] ZMGXRj7dKmDCAbHzIQYxVegCJRijTKgrUDEsP8N5DIifVl4TXMwrbzPaNQAgYd8+MKEeUG0zxq1oFZXa y 3gHKCdOcciY0FgSKUty15CCANkZHoYXmPjVxQnRcU6IJWtFJZuULX8HwDwOlelYV7sCBV9NCBuPEwdMH EiWGJkGMB3MUqxWK5uXExpAJqkPf5CBP2hh6MwRCWcVTDeZhiBCTxwVLvcIARiTORjCIYaH195dlKzQK 7GgGVhZTi7VVYlPaX7LMXlLnC4BVTdQsWwUhAgGHJe A4Too321ppRknzE4EF9IJ9CmUGR5SOc6U2zrKpOiNHMkYCYnZS8jOrU1VZQzFv1DgLdgQKRpOBXzRq6V qFy9RSD9DWUwJg1+Pj4+Jp4sreSfSkbWWGZmZB3utm29EA7GoPOtIA5RPOfuN26uODluJx18AHgeALIz RsDwNHz2Ns8cTpPwd9QmT6BkLBm7I5zFBigqX8FnRT unWB2cLWD1DQFfCz9+Gm9vUSIeQH81GKSgPIAHY5EsxiHgbaLcXYd8RBCgBk9+Ny4kahVnCniESHWhMV 5dlk27GZ0QAF0tbIjrQQL2UARhL70ulVHnP6xzRhYbS2EbvRydZDCgXO6oJ5AlZNghOPYnPF6nnkHbtB 3VyVe2ASZsLs1FvSR3VYDrD01oGMDgYANWIMCak3Ec WC8Cz2eirvDrIVSuTW9VZSUpP4KMG9GxC3gdmSksCPIlWA0AEYoyzEEgLNg3GD1HtKZeGXScS84ylK0k CL29VSw+YcX8xxPfbX7QdOkbf4DIQA049q6Y9+LhNz1KfMxOXRECQRbwPXFH6U6ZlYrHTOCHl1Gkg3jj 7gwafAYd/OS/8284lM1hcrl5td8tshh17o8E26ll53 [file] aQ04P09UwId2ef/hd60RSPE9caNQP6m+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/sfXAZ6Tdmdx15y+gTLnJ6g7VRCHgdZA1Vbr46seMh6PDa [file] /S0Tf6rAaluOfLzkrAeQD50Z941ZBpkS15KvsCF [file] pG8iiO4jj/WWw9guoStuUXaEmt5zwg4a10Cc1dkQEHSdv7q32Smm5rqy2BP9HceGqzQpCo1Jhk+garment cutter+o w5/HPXHyQ+zNeH+n2F8otDPHZM4+EAY+t0t/AEWhTM UWd6Hf8aCjAbAv2oqBJ1K2I7QmaY8EtO45RSp+rRNtn9IyO0hcozpZOCxJt192O9tzNEPa6z9lkAoSq1 kVC2q9ziTZOF4XkdVQ77nFLtmtwkR1lUOLj2GfjKch3W83L95mc4hVG0lQzo58LkwNRPVr+atidp7usn epA8Fhcb9FagbpevJqZQ//Bk45Ap2sI0UT3Qoe21yq bYu+jaiXgYihTwaRC94OBwLr+MU+4Wwc/r2SbY+xYpMrpD1Hxu/tEnxCch2mxIb61OhX17jm8MCFRrNE IWz/fK7lcEFcqr7MMWAuGkVIUkmtImqBiJCF1DD76OS0v3hA4Lf83eQ/s2ZB6YnzFQP7yR147h5I+ELU F1bjF3RZXUVipcIeIhFW/PGzL1Uy+qV7hx6NyppDAB HV64fio5lS1IhP4WiF0fDLRA+2hKlEcDX9LfSpTYK70yU5aZQhcjsUCDkYRpBEMxzyor2NNtwd4MA8KI wC7sscp+FEmorugaGhOt48OY0RKg2Y24arCxpn3d4xLVxunSPs9itrB5z0/rKup/ArLIpLP5S4bJE2Im 4k7HVfmo6p2w6NB5AX07yskajgXh481eWe632nqsm6 [file] l07BrJ2j/zelRge9XCWsGbRb7EcAKveIXzPPBof+DtCxStSduPTGniR8sbimJ/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/H7SNDAwgtQf6GP [file] 4NbvBzsaXk7qnq0hBxJqp7NYI+x+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/EDwKHnjMQrfOUB+DN6WYBj55WkfxmRdFNVk7cVngnFmRLvXlE [file] aqcLTuQXAndHS91Nu6ZCSZN4uVSy1Qg2T8Te49wPj/SAP FICO ARCHITECT+lJ9WviZHO78X3UZptLSsqYPDy2MT78GIR2 Inm8qj1UMICJuPfjEXFEFHAxntMIIRXKdJakW75eGD [file] Juan Pablo+0YEkI7eXxOITAO3A+UIrdnESxJxnf8wgPGFXh44DZQf23TEefmy5kdcdDvsYrUjV7WfyRUOcurshe [file] Mary Jo/upcHOChi8CqMU+f5Mpbmwy4OlrO/0O3q5QoQpm [file] second vp hr assessment/3gR5raMcYN4BRVXllMfrdGNAgQF+fL1CscsIbxm [file] GD/point of care technician+uLS4dW3uk44Tp1eGUTjIHV01Sbs6rGA/ahrrcrCAEpdN3tlu2AreNiz5QpEQf7aEsAuxpmHo5 [file] VK389AwJZh02h8oroivbx11vA595nStGNoX1j29r9e WotSlQKtOyJ1FZdv9Uc+p7G6yheFXv+xmg+YzQ/zimTa3PgPmgUkGejR8wMTJ/QomHjG0aLF00ejEBAE TLAXIV2yuhxdA9QT6RK+nI47C0xMCss/9eaCHejEDf2aDDNymVE2AUr7C3y3GlwI4y2yRBA972dwyIWC mk3qd/BwihY4B+piPxEoVzZYnJY7HW2iS9PhjD2hcH V4duQnkPLX7EPoMvvmnrSmzQssMxinOaDO4utA97hsd8iKKggOams6QuNiZsWgNcWAhOW/re5DLTVimy w9usORUaXDv4AkiNhacDZISZ8CCj86THgaNBJLamG5QnbSl/yii2A4yl8GtXflDhVy8CsVD57UzEOWtE g5rvegX2JnN02iYv7xLXg3WYAGlaWRIWTFHdWgwunA J2j6ARz6IP/DWCyj9aREagRL1JQbKJZa3zojnA0MQgsd/qfxc27E4bSd2EYF55LHNMalj4W4Kte+GNyy ZI4mV8uoIL2nyuM4jtchD70TFscfqpePzVN/lh7l20kUJFJKgVI2mGcoBaTA/vKar7kaj2/ckig+/tFa ln7L/8tQZBMFiqKQmMu8WvH+ujcRp9K9mexdBf7e2C fRIGvOYNRy9rLUPvy2m+6ylfcLR2HkhydCtxAhVcUTqUde1jdvfAZIh8o7VWr1AZy3MBuSQH6ezyr/eA 1kg2MMd56bzwlAz1ZT0AToyC7WxpP17MASmCDz4+B/w8vTYYMkTsa3+Gigi/Bm5rbmsR7t4g9U8d41nuf gdj/kCrDtoiGMguY/GqfwynjAGGbb4Mn4fBx9fKmxk 2Aqt+wkCYScpTphnXY8irRXS5lruk2d1LApo/H7IoDmwl1I4OPalY0pZn0o0oN/xTPw7NzkJPppL9k3A lewis/EhgGlpTxg3F5MFlI68uhDrgvav5SI7V9jFNa/ZqnKuIHCq7g9wXHpT811CDNlqkC5lRyNmLVndBnD [place]+nP32gnzRXHzAlxBr5Jed/t5lPARSyFvgS0eKGE [file] xhnr4NpPtrwb/y+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/gdCmDH7ap66FyzImuCH7Dj3 [file] 7VRXGJTh9wWhTXelAAt7Od+ju605zoS+6E47BxDuHmAyBFKbccE7JnMvGn8Xk1HjrTgmQ8Zekxn1/rn hospice [file] UWWfbBzu1CV95h1/bank advisor+f6RSiHT84PQlXXqaOBpPLnzv+jyA17vhq0n/9k3zXpUe7wdnxjvYVmlPpbdsG [file] José Antonio/Krl1ipw6jxTT6BytNYQY/9Z2PfvDnWLqYFmbBT [file] LwmP/5Sta0hZwCefocBmNEIQJWH23n8F9rphaTVVwcqk/director of clinical trials/3PezQshFPebcik/rZ9MTtRVbaSEh8sV 1PwAm7SUEu231+pt/8bMA9+3T++dBsGiynoHxFaFw06qTYlt4CMj/MrZa3p595OuCnk1bVtFzMJ4GWMi CJoOj45K/NKTdqZJjeDKRNhWO31mQfh2oid1VJEOrF TQ+Fabricio/k56V6qiLAnB3v6y40yCH8cScWxKbtg4kkr8LruLVEVNe1z6m1ly2tIrDMTzY0WH3F6bOFE0IY [file] Vice President Research+nDf5hTIRI56waYFeVDu40xjS/xEY6JjLj6Jwno [file] vD4nLVaPgFX0ipS62X6dnOzlhb2dXwUih27kC2PyrEOARRks2YJxsgbo/2CYe+second vp hr assessment/jCu94G/1/H8T4j/ [file] [facility]+0Ldq7LK+HyiPF9IzwC4DV2Z0fToUW [file] jtp30bsCsl08+qRBNMPsJnk3qC0Np1+HvBjOgs/Office Nurse [file] Ycb2mBsJVMiB+PmcKr0MArfeobFpQndoHUvAsgitCSQeLeGjQmo73kgGVYYgitWiuRR6gNwAQiG/h+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 [file] yh7lQ7OImbYSXUmCfgjXDuEbe/ydj/my5z23XY8IMo8bGL0vdDNgJiKGWrmdt9/Rosa M/zxT2ge+Fpqo9D [file] OqQpQKz4nWEvPrIkKE5BBJkivyDmvIAeVJ8RCeIc EO0aoj0NYrZ1SZQ7iAErQd0HXZJ6TfAeTY9MSQSZJ1M= Procedure Social History Code Duration Value Status Description Data Source(s ) Smoking 02/18/2020 12:00:00 AM EST Former Smoker completed Former Smoker eCW1 ([facility]) Smoking 02/18/2020 12:00:00 AM EST Former Smoker completed Former Smoker eCW1 ([facility]) Smoking 02/18/2020 12:00:00 AM EST Former Smoker completed Former Smoker eCW1 ([facility]) Smoking 02/18/2020 12:00:00 AM EST Former Smoker completed Former Smoker eCW1 ([facility]) Smoking 02/18/2020 12:00:00 AM EST Former Smoker completed Former Smoker eCW1 ([facility]) Smoking 02/18/2020 12:00:00 AM EST Former Smoker completed Former Smoker eCW1 ([facility]) Smoking 01/26/2020 12:00:00 AM EST Patient is a former smoker completed Patient is a former smoker MEDENT ([facility]) Smoking 12/08/2019 12:00:00 AM EDT Patient is a former smoker completed Patient is a former smoker MEDENT ([facility]) Smoking 01/23/2019 12:00:00 AM EST Former Smoker completed Former Smoker eCW1 ([facility]) Smoking 01/23/2019 12:00:00 AM EST Former Smoker completed Former Smoker eCW1 ([facility]) Smoking 01/23/2019 12:00:00 AM EST Former Smoker completed Former Smoker eCW1 ([facility]) Vital Signs ID Date Data Source UNK Name Value Range Interpretation Code Description Data Source(s) Body mass index (BMI) [Ratio] 31.17 kg/m2 31.17 kg/m2 eCW1 ([facility]) Body height 68 [in_i] 68 [in_i] eCW1 ([facility]) Body weight [lb_av] eCW1 ([facility]) Diastolic blood pressure 72 mm[Hg] 72 mm[Hg] MEDENT ([facility]) sitting Systolic blood pressure 136 mm[Hg] 136 mm[Hg] M EDENT ([facility]) sitting Diastolic blood pressure 76 mm[Hg] 76 mm[Hg] MEDENT ([facility]) sitting, regular cuff Systolic blood pressure 136 mm[Hg] 136 mm[Hg] M EDENT ([facility]) sitting, regular cuff Respiratory rate 16 /min 16 /min MEDENT ( [facility]) Heart rate 76 /min 76 /min MEDENT ([facility] Regular Body mass index (BMI) [Ratio] 31.0 kg/m2 31.0 k g/m2 MEDENT ([facility]) Body height 67.5 [in_i] 67.5 [in_i] MEDENT ([facility]) 5'7.50" Body weight 201.00 [lb_av] 201.00 [lb_av] MEDEN T ([facility]) Diastolic blood pressure 72 mm[Hg] 72 mm[Hg] MEDENT ([facility]) sitting Systolic blood pressure 136 mm[Hg] 136 mm[Hg] M EDENT ([facility]) sitting Diastolic blood pressure 76 mm[Hg] 76 mm[Hg] MEDENT ([facility]) sitting, regular cuff Systolic blood pressure 136 mm[Hg] 136 mm[Hg] M EDENT ([facility]) sitting, regular cuff Respiratory rate 16 /min 16 /min MEDENT ( [facility]) Heart rate 76 /min 76 /min MED[facility] ([facility] Regular Body mass index (BMI) [Ratio] 30.9 kg/m2 30.9 k g/m2 MEDENT ([facility]) Body height 67.5 [in_i] 67.5 [in_i] MEDENT ([facility]) 5'7.50" Body weight 200.00 [lb_av] 200.00 [lb_av] MEDEN T ([facility]) Body mass index (BMI) [Ratio] 28.9 kg/m2 [...] M EDENT ([facility]) ID Date Data Source [id number] 03/23/2020 12:44:07 PM [facility] Name Value Range Interpretation Code Description Data Source(s) TRANSFER FROM [facility] Patient Treatment Plan of Care Planned Activity Planned Date Details Description Data Source (s) sildenafil 100 MG Oral Tablet 02/18/2020 12:00:00 AM EST eCW1 ([facility]) 1250 MG Testosterone 0.0162 MG/MG Topical Gel [Androge l] 02/18/2020 12:00:00 AM EST eCW1 ([facility]) sildenafil 100 MG Oral Tablet 02/18/2020 12:00:00 AM EST eCW1 ([facility]) 1250 MG Testosterone 0.0162 MG/MG Topical Gel [Androge l] 02/18/2020 12:00:00 AM EST eCW1 ([facility]) sildenafil 100 MG Oral Tablet 02/18/2020 12:00:00 AM EST eCW1 ([facility]) 1250 MG Testosterone 0.0162 MG/MG Topical Gel [Androge l] 02/18/2020 12:00:00 AM EST eCW1 ([facility]) 1250 MG Testosterone 0.0162 MG/MG Topical Gel [Androge l] 02/18/2020 12:00:00 AM EST eCW1 ([facility]) sildenafil 100 MG Oral Tablet 02/18/2020 12:00:00 AM EST eCW1 ([facility]) 1250 MG Testosterone 0.0162 MG/MG Topical Gel [Androge l] 02/18/2020 12:00:00 AM EST eCW1 ([facility]) sildenafil 100 MG Oral Tablet 02/18/2020 12:00:00 AM EST eCW1 ([facility]) 1250 MG Testosterone 0.0162 MG/MG Topical Gel [Androge l] 02/18/2020 12:00:00 AM EST eCW1 ([facility]) sildenafil 100 MG Oral Tablet 02/18/2020 12:00:00 AM EST eCW1 ([facility]) Ciprofloxacin 500 MG Oral Tablet [Cipro] 04/15/2019 12:00:00 AM EST eCW1 ([facility]) Ciprofloxacin 500 MG Oral Tablet [Cipro] 04/15/2019 12:00:00 AM EST eCW1 ([facility]) Ciprofloxacin 500 MG Oral Tablet [Cipro] 04/15/2019 12:00:00 AM EST eCW1 ([facility]) Ciprofloxacin 500 MG Oral Tablet [Cipro] 04/15/2019 12:00:00 AM EST eCW1 ([facility])
[2020-03-23 13:17] LABS: ALT/SGPT 60 U/L (12-78); BILIRUBIN,DIRECT 0.1 MG/DL (0.0-0.2); BILIRUBIN,TOTAL 0.4 MG/DL (0.2-1.0); BLOOD UREA NITROGEN 8 MG/DL (7-18); CALCIUM LEVEL 8.8 MG/DL (8.8-10.2); CARBON DIOXIDE LEVEL 29 MEQ/L (21-32); CHLORIDE LEVEL 95 MEQ/L (98-107); CK-MB VALUE MASS 5.3 NG/ML (<3.6); CPK CREATINE PHOSPHOKINASE 167 U/L (39-308); CREATININE FOR GFR 0.92 MG/DL (0.70-1.30); ETHYL ALCOHOL (ETHANOL) 0.003 % (0.000-0.010); GLOMERULAR FILTRATION RATE > 60.0 (>42); GLUCOSE, FASTING 99 MG/DL (70-100); MB/CK RELATIVE INDEX 3.17 (< OR =4); POTASSIUM SERUM 3.9 MEQ/L (3.5-5.1); SODIUM LEVEL 131 MEQ/L (136-145); TOTAL PROTEIN 6.9 GM/DL (6.4-8.2); TROPONIN I < 0.02 NG/ML (< 0.10)
[2020-03-23 13:46] VITALS: BP 128/83
== END 2020-03-23 13:54 | disposition short-term general hospital (02) ==
LOC: M ED 11:39
DX: S06.369A Traumatic hemorrhage of cerebrum, unspecified, with loss of consciousness of unspecified duration, initial encounter (principal); S01.01XA Laceration without foreign body of scalp, initial encounter; W11.XXXA Fall on and from ladder, initial encounter; Y92.019 Unspecified place in single-family (private) house as the place of occurrence of the external cause; Y93.9 Activity, unspecified; Y99.9 Unspecified external cause status; M47.812 Spondylosis without myelopathy or radiculopathy, cervical region; E11.9 Type 2 diabetes mellitus without complications; I25.10 Atherosclerotic heart disease of native coronary artery without angina pectoris; I10 Essential (primary) hypertension; K21.9 Gastro-esophageal reflux disease without esophagitis; E78.5 Hyperlipidemia, unspecified; M48.00 Spinal stenosis, site unspecified; E55.9 Vitamin D deficiency, unspecified; K64.9 Unspecified hemorrhoids; F41.9 Anxiety disorder, unspecified; Z87.891 Personal history of nicotine dependence; Z79.01 Long term (current) use of anticoagulants; Z79.899 Other long term (current) drug therapy; Z79.4 Long term (current) use of insulin
CPT/HCPCS: 70450; 71045; 72125; 80048; 80076; 82550; 82553; 84484; 85025; 85610; 85730; 86850; 86900; 86901; 90471; 90715; 93041; 94760; 96361; 96374; 99285; G0480; J2270

== ENCOUNTER → 2020-04-02 | Outpatient (REF) | payer MEDICARE, BC, OTHER ==
[~2020-04-02] MED LIST changes: +CITA20TA6 PO; +DEXI60CA2 PO; +ECOT81TA5 PO; +GABA600T4 PO; +HYDR-4517 PO; +LANTINJ4 SC; +LOSA100T50 PO; +METO1TAB32 PO; +MIRA3350 PO; +NITR0.3S SL; +NOVOINJ3 SC; +PLAV1TAB2 PO; -PROHANCE 279.3MG/ML 15ML VIAL As Ordered ONE; -PROHANCE 279.3MG/ML 5ML VIAL As Ordered ONE; +ROSU40TA4 PO; +SILD100T PO; +SPIR-10 PO
[2020-04-02 10:16] LABS: BASO % 0.8 % (0.0-1.0); EOS # 0.1 10^3/uL (0.0-0.5); EOS % 2.4 % (0.0-3.0); HEMATOCRIT 39.2 % (42.0-52.0); HEMOGLOBIN 12.7 g/dl (13.5-17.5); LYMPH # 1.3 10^3/uL (1.5-5.0); LYMPH % 24.6 % (24.0-44.0); MEAN CORPUSCULAR HEMOGLOBIN 31.1 pg (27.0-33.0); MEAN CORPUSCULAR HGB CONC 32.4 g/dl (32.0-36.5); MEAN CORPUSCULAR VOLUME 95.8 fl (80.0-96.0); MONO # 0.6 10^3/uL (0.0-0.8); MONO % 10.9 % (0.0-5.0); NEUTROPHILS # 3.2 10^3/uL (1.5-8.5); NEUTROPHILS % 60.7 % (36.0-66.0); PLATELET COUNT, AUTOMATED 372 10^3/uL (150-450); RED BLOOD COUNT 4.09 10^6/uL (4.30-6.10); WHITE BLOOD COUNT 5.3 10^3/uL (4.0-10.0)
[2020-04-02 10:34] LABS: BLOOD UREA NITROGEN 11 MG/DL (7-18); CALCIUM LEVEL 9.2 MG/DL (8.8-10.2); CARBON DIOXIDE LEVEL 26 MEQ/L (21-32); CHLORIDE LEVEL 95 MEQ/L (98-107); CREATININE FOR GFR 0.82 MG/DL (0.70-1.30); GLOMERULAR FILTRATION RATE > 60.0 (>42); GLUCOSE, FASTING 163 MG/DL (70-100); POTASSIUM SERUM 4.5 MEQ/L (3.5-5.1); SODIUM LEVEL 130 MEQ/L (136-145)
== END ==
LOC: M SFHCPLAZ 08:10
PROVIDERS: ATTEND Internal Medicine
DX: I10 Essential (primary) hypertension (principal); I60.9 Nontraumatic subarachnoid hemorrhage, unspecified

== ENCOUNTER → 2020-08-03 | Outpatient (REF) | payer MEDICARE, BC, OTHER ==
[2020-08-03 13:24] LABS: BASO # 0.1 10^3/uL (0.0-0.2); EOS # 0.2 10^3/uL (0.0-0.5); EOS % 3.4 % (0.0-3.0); HEMATOCRIT 40.5 % (42.0-52.0); HEMOGLOBIN 13.6 g/dl (13.5-17.5); LYMPH # 1.8 10^3/uL (1.5-5.0); LYMPH % 29.3 % (24.0-44.0); MEAN CORPUSCULAR HEMOGLOBIN 34.1 pg (27.0-33.0); MEAN CORPUSCULAR HGB CONC 33.6 g/dl (32.0-36.5); MEAN CORPUSCULAR VOLUME 101.5 fl (80.0-96.0); MONO # 0.7 10^3/uL (0.0-0.8); MONO % 10.9 % (2.0-8.0); NEUTROPHILS # 3.4 10^3/uL (1.5-8.5); NEUTROPHILS % 54.9 % (36.0-66.0); PLATELET COUNT, AUTOMATED 280 10^3/uL (150-450); RED BLOOD COUNT 3.99 10^6/uL (4.30-6.10); WHITE BLOOD COUNT 6.2 10^3/uL (4.0-10.0)
[2020-08-03 13:44] LABS: ERYTHROCYTE SEDIMENTATION RATE 5 mm/hr (0-20); HEMOGLOBIN A1c 6.4 %
[2020-08-03 14:01] LABS: ALBUMIN 4.1 GM/DL (3.2-5.2); ALT/SGPT 38 U/L (12-78); BILIRUBIN,TOTAL 0.5 MG/DL (0.2-1.0); BLOOD UREA NITROGEN 10 MG/DL (7-18); CALCIUM LEVEL 9.4 MG/DL (8.8-10.2); CARBON DIOXIDE LEVEL 28 MEQ/L (21-32); CHLORIDE LEVEL 103 MEQ/L (98-107); CHOLESTEROL LEVEL 113 MG/DL (<200); CHOLESTEROL RISK RATIO 4.346 (<5); FERRITIN 29 NG/ML (26-388); GLOMERULAR FILTRATION RATE > 60.0 (>42); GLUCOSE, FASTING 107 MG/DL (70-100); HDL CHOLESTEROL 26 MG/DL (>40); IRON (FE) 133 UG/DL (65-175); LDL CHOLESTEROL 35 MG/DL (<100); MAGNESIUM LEVEL 1.8 MG/DL (1.8-2.4); NON-HDL-C 87 MG/DL; PERCENT SATURATION 37.6 % (19.7-50.0); POTASSIUM SERUM 4.3 MEQ/L (3.5-5.1); SODIUM LEVEL 137 MEQ/L (136-145); TOTAL IRON BINDING CAPACITY 354 UG/DL (250-450); TOTAL PROTEIN 6.9 GM/DL (6.4-8.2); TRIGLYCERIDES LEVEL 258 MG/DL (<150)
[2020-08-03 14:02] LABS: FOLATE > 24.0 NG/ML
[2020-08-03 14:56] LABS: VITAMIN B12 LEVEL 1293 PG/ML
[2020-08-03 19:27] LABS: CREATININE, URINE 56.3 MG/DL; MAU/CREAT RATIO 17.7 MCG/MG (0.0-30.0)
[2020-08-05 15:08] LABS: Lyme Disease IgG/IgM Antibodie <0.91 ISR (0.00-0.90); Lyme Disease IgM Ab Quantitati <0.80 index (0.00-0.79)
== END ==
LOC: M SFHCPLAZ 11:22
PROVIDERS: ATTEND Internal Medicine
DX: E11.69 Type 2 diabetes mellitus with other specified complication (principal); D64.9 Anemia, unspecified; I10 Essential (primary) hypertension; M19.90 Unspecified osteoarthritis, unspecified site; E78.00 Pure hypercholesterolemia, unspecified
CPT/HCPCS: 36415; 80053; 80061; 82043; 82607; 82728; 82746; 83036; 83550; 83735; 85025; 85652; 86140; 86617; G0463

== ENCOUNTER → 2020-12-27 | Outpatient (CLI) | payer MEDICARE, BC, OTHER ==
[2020-12-27 13:41] LABS: BASO # 0.1 10^3/uL (0.0-0.2); EOS # 0.2 10^3/uL (0.0-0.5); EOS % 4.2 % (0.0-3.0); HEMATOCRIT 42.5 % (42.0-52.0); HEMOGLOBIN 13.7 g/dl (13.5-17.5); LYMPH # 1.8 10^3/uL (1.5-5.0); LYMPH % 34.9 % (24.0-44.0); MEAN CORPUSCULAR HEMOGLOBIN 33.3 pg (27.0-33.0); MEAN CORPUSCULAR HGB CONC 32.2 g/dl (32.0-36.5); MEAN CORPUSCULAR VOLUME 103.2 fl (80.0-96.0); MONO # 0.5 10^3/uL (0.0-0.8); MONO % 10.4 % (2.0-8.0); NEUTROPHILS # 2.5 10^3/uL (1.5-8.5); NEUTROPHILS % 49.1 % (36.0-66.0); PLATELET COUNT, AUTOMATED 290 10^3/uL (150-450); RED BLOOD COUNT 4.12 10^6/uL (4.30-6.10)
[2020-12-27 14:40] LABS: ALBUMIN 4.1 GM/DL (3.2-5.2); BILIRUBIN,TOTAL 0.4 MG/DL (0.2-1.0); BLOOD UREA NITROGEN 12 MG/DL (7-18); CALCIUM LEVEL 9.1 MG/DL (8.8-10.2); CARBON DIOXIDE LEVEL 30 MEQ/L (21-32); CHLORIDE LEVEL 106 MEQ/L (98-107); CHOLESTEROL LEVEL 104 MG/DL (<200); CHOLESTEROL RISK RATIO 3.851 (<5); CREATININE FOR GFR 0.82 MG/DL (0.70-1.30); GLOMERULAR FILTRATION RATE > 60.0 (>42); GLUCOSE, FASTING 217 MG/DL (70-100); HDL CHOLESTEROL 27 MG/DL (>40); LDL CHOLESTEROL 36 MG/DL (<100); MAGNESIUM LEVEL 1.9 MG/DL (1.8-2.4); NON-HDL-C 77 MG/DL; POTASSIUM SERUM 4.4 MEQ/L (3.5-5.1); SODIUM LEVEL 139 MEQ/L (136-145); TOTAL PROTEIN 6.9 GM/DL (6.4-8.2); TRIGLYCERIDES LEVEL 206 MG/DL (<150)
[2020-12-27 15:03] LABS: ALT/SGPT 38 U/L (12-78)
[2020-12-27 16:47] LABS: HEMOGLOBIN A1c 6.7 %
== END ==
LOC: M PLALAB 09:39
PROVIDERS: ATTEND Internal Medicine
DX: D64.9 Anemia, unspecified (principal); E78.00 Pure hypercholesterolemia, unspecified; I10 Essential (primary) hypertension; E11.69 Type 2 diabetes mellitus with other specified complication

== ENCOUNTER 2021-02-07 19:42 | Inpatient (IN) | payer MEDICARE, BC, OTHER ==
[~2021-02-07] VITALS: Ht 172.7 cm; Wt 88.3 kg
[~2021-02-07 19:42] MED LIST changes: +LOSA100T45 PO; -LOSA100T50 PO
[2021-02-07 20:17] LABS: BASO # 0.1 10^3/uL (0.0-0.2); BASO % 0.7 % (0.0-1.0); EOS # 0.2 10^3/uL (0.0-0.5); EOS % 3.2 % (0.0-3.0); HEMATOCRIT 42.4 % (42.0-52.0); HEMOGLOBIN 14.1 g/dl (13.5-17.5); LYMPH # 2.3 10^3/uL (1.5-5.0); LYMPH % 33.2 % (24.0-44.0); MEAN CORPUSCULAR HEMOGLOBIN 33.6 pg (27.0-33.0); MEAN CORPUSCULAR HGB CONC 33.3 g/dl (32.0-36.5); MONO # 0.6 10^3/uL (0.0-0.8); MONO % 8.9 % (2.0-8.0); NEUTROPHILS # 3.7 10^3/uL (1.5-8.5); NEUTROPHILS % 53.6 % (36.0-66.0); PLATELET COUNT, AUTOMATED 276 10^3/uL (150-450)
[2021-02-07] MEDS ORDERED: LOSARTAN 50MG TABLET PO ONE (20:55)
[2021-02-07 20:57] LABS: CK-MB VALUE MASS 3.1 NG/ML (<3.6); MB/CK RELATIVE INDEX 2.26 (< OR =4)
[2021-02-07] MEDS ORDERED: hydrALAZINE 20MG/ML 1ML VIAL (J0360 PER 20MG) IV STA (20:58)
[2021-02-07] MEDS ORDERED: ACETAMINOPHEN TAB 650MG DOSE (2X325MG) PO ONE (23:10)
[2021-02-07] MEDS ORDERED: GABAPENTIN 400MG CAP PO ONE (23:10)
[2021-02-07 23:49] LABS: CK-MB VALUE MASS 2.5 NG/ML (<3.6); MB/CK RELATIVE INDEX 2.69 (< OR =4)
[2021-02-08] MEDS ORDERED: ASPIRIN 81 MG CHEW TABLET PO ONE
[2021-02-08] MEDS ORDERED: GLUCAGON INJ 1MG VIAL SC PRN (00:55)
[2021-02-08] MEDS ORDERED: GLUCOSE 4GM CHEW TABLET PO PRN (00:55)
[2021-02-08] MEDS ORDERED: DEXTROSE 50% 50 ML SYRINGE IV PRN (00:55)
[2021-02-08] MEDS ORDERED: D5W/0.9% SODIUM CHLORIDE 1,000 ML IV SCH (01:00)
[2021-02-08 01:04] LABS: RSV AMPLIFICATION NEGATIVE (NEGATIVE)
[2021-02-08] MEDS ORDERED: CLOPIDOGREL 300 MG TAB (PLAVIX) PO ONE (01:30)
[2021-02-08] MEDS ORDERED: FERR32TA PO (07:06)
[2021-02-08] MEDS ORDERED: B-12100010 PO (07:06)
[2021-02-08] MEDS ORDERED: LORA-674 PO (07:06)
[2021-02-08] MEDS ORDERED: OXYC-517 PO (07:06)
[2021-02-08] MEDS ORDERED: GABA-282 PO (07:06)
[2021-02-08] MEDS ORDERED: PSEU120T3 PO (07:06)
[2021-02-08] MEDS ORDERED: DOCU100C16 PO (07:06)
[2021-02-08] MEDS ORDERED: VITATAB73 PO (07:06)
[2021-02-08] MEDS ORDERED: FISH1000 PO (07:06)
[2021-02-08] MEDS ORDERED: ASPI-161 PO (07:06)
[2021-02-08] MEDS ORDERED: NITR0.4S14 SL (07:06)
[2021-02-08] MEDS ORDERED: ACET650T61 PO (07:06)
[2021-02-08] MEDS ORDERED: MIRA1POW3 PO (07:06)
[2021-02-08] MEDS ORDERED: ROSU40TA4 PO (07:06)
[2021-02-08] MEDS ORDERED: FLON1SPR (07:06)
[2021-02-08] MEDS ORDERED: LOSA100T45 PO (07:06)
[2021-02-08] MEDS ORDERED: MAGN250T7 PO (07:06)
[2021-02-08] MEDS ORDERED: D3 H2000 PO (07:06)
[2021-02-08] MEDS ORDERED: LANTINJ4 SC (07:06)
[2021-02-08] MEDS ORDERED: SYMB80INH INH (07:06)
[2021-02-08] MEDS ORDERED: METF-877 PO (07:06)
[2021-02-08] MEDS ORDERED: CELE20TA PO (07:06)
[2021-02-08] MEDS ORDERED: HYDR-4571 PO (07:06)
[2021-02-08] MEDS ORDERED: HOME MED LIST COMPLETE! XX SCH (07:10)
[2021-02-08] MEDS: HumaLOG INSULIN (NovoLOG) PER UNIT SC SCH ×4 (07:30→20:26)
[2021-02-08 08:25] LABS: HEMATOCRIT 39.4 % (42.0-52.0); HEMOGLOBIN 13.1 g/dl (13.5-17.5); MEAN CORPUSCULAR HEMOGLOBIN 33.2 pg (27.0-33.0); MEAN CORPUSCULAR HGB CONC 33.2 g/dl (32.0-36.5); PLATELET COUNT, AUTOMATED 243 10^3/uL (150-450); RED BLOOD COUNT 3.94 10^6/uL (4.30-6.10); WHITE BLOOD COUNT 5.9 10^3/uL (4.0-10.0)
[2021-02-08 08:43] LABS: BLOOD UREA NITROGEN 8 MG/DL (7-18); CALCIUM LEVEL 8.7 MG/DL (8.8-10.2); CARBON DIOXIDE LEVEL 26 MEQ/L (21-32); CHLORIDE LEVEL 107 MEQ/L (98-107); CREATININE FOR GFR 0.72 MG/DL (0.70-1.30); GLOMERULAR FILTRATION RATE > 60.0 (>42); GLUCOSE, FASTING 89 MG/DL (70-100); POTASSIUM SERUM 3.7 MEQ/L (3.5-5.1); RHEUMATOID FACTOR QUANT < 10.0 IU/ML (<15.0); SODIUM LEVEL 139 MEQ/L (136-145)
[2021-02-08 08:49] LABS: ERYTHROCYTE SEDIMENTATION RATE 11 mm/hr (0-20)
[2021-02-08] MEDS ORDERED: ASPIRIN 325 MG TAB PO SCH (09:00)
[2021-02-08] MEDS: PANTOPRAZOLE 40MG VIAL (C9113 PER 1) IV SCH (09:22)
[2021-02-08 09:52] LABS: DRVV SCREEN 44.9 SEC
[2021-02-08 09:54] LABS: PTT LUPUS TYPE ANTICOAG SCREEN 1.2 (0-1.2)
[2021-02-08 10:03] LABS: DRVV CONFIRM 37.6 SEC
[2021-02-08 10:04] LABS: NORMALIZED RATIO 1.2 (0.00-1.20)
[2021-02-08] MEDS: **hydrALAZINE** 10 MG TAB PO SCH ×2 (13:55→18:45)
[2021-02-08 16:00] VITALS: BP 192/86
[2021-02-08] MEDS: LABETALOL 100MG/20ML VIAL IV SCH ×2 (17:25→23:20)
[2021-02-08 20:00] VITALS: BP 180/84
[2021-02-08] MEDS: ROSUVASTATIN 10 MG TAB (CRESTOR) PO SCH (20:26)
[2021-02-08 23:18] VITALS: BP 200/90
[2021-02-09] VITALS (8 sets, daily range): BP systolic 156–195; BP diastolic 76–88
[2021-02-09] MEDS: **hydrALAZINE** 10 MG TAB PO SCH ×4 (00:50→18:00)
[2021-02-09] MEDS: LABETALOL 100MG/20ML VIAL IV SCH (05:21)
[2021-02-09 05:25] LABS: HEMATOCRIT 39.1 % (42.0-52.0); HEMOGLOBIN 13.2 g/dl (13.5-17.5); MEAN CORPUSCULAR HEMOGLOBIN 33.8 pg (27.0-33.0); MEAN CORPUSCULAR HGB CONC 33.8 g/dl (32.0-36.5); PLATELET COUNT, AUTOMATED 259 10^3/uL (150-450); RED BLOOD COUNT 3.91 10^6/uL (4.30-6.10); WHITE BLOOD COUNT 6.3 10^3/uL (4.0-10.0)
[2021-02-09 05:39] LABS: BLOOD UREA NITROGEN 8 MG/DL (7-18); CALCIUM LEVEL 8.7 MG/DL (8.8-10.2); CARBON DIOXIDE LEVEL 26 MEQ/L (21-32); CHLORIDE LEVEL 106 MEQ/L (98-107); CREATININE FOR GFR 0.79 MG/DL (0.70-1.30); GLOMERULAR FILTRATION RATE > 60.0 (>42); GLUCOSE, FASTING 161 MG/DL (70-100); POTASSIUM SERUM 3.7 MEQ/L (3.5-5.1); SODIUM LEVEL 140 MEQ/L (136-145)
[2021-02-09] MEDS ORDERED: LABETALOL 100MG/20ML VIAL IV PRN (07:10)
[2021-02-09] MEDS: CLOPIDOGREL 75 MG TAB PO SCH (08:50)
[2021-02-09] MEDS: PANTOPRAZOLE 40MG VIAL (C9113 PER 1) IV SCH (08:50)
[2021-02-09] MEDS: ASPIRIN 81MG ENTERIC TABLET PO SCH (08:50)
[2021-02-09] MEDS: METOPROLOL SUCC *XL* 12.5MG PER 1/2 TAB (TopROL *XL*) PO SCH (08:51)
[2021-02-09] MEDS: HumaLOG INSULIN (NovoLOG) PER UNIT SC SCH ×4 (08:52→21:42)
[2021-02-09] MEDS ORDERED: MIRALAX *UNIT DOSE* 17GM PACKET PO SCH (09:00)
[2021-02-09] MEDS: LORATADINE 10 MG TAB PO SCH (09:00)
[2021-02-09] MEDS ORDERED: SPIRONOLACTONE 25 MG TAB PO SCH (09:00)
[2021-02-09] MEDS ORDERED: FERROUS GLUCONATE 324 MG TAB PO SCH (09:00)
[2021-02-09] MEDS ORDERED: NORCO, ANEXSIA 5/325MG TABLET (HYDROcodone/ACETAMINOPHEN) PO PRN (09:45)
[2021-02-09] MEDS ORDERED: oxyCODONE 5MG TAB PO PRN (09:45)
[2021-02-09] MEDS ORDERED: FLUTICASONE PROP 0.05% NASAL SPRAY 16 GM (FLONASE) PRN (09:45)
[2021-02-09] MEDS ORDERED: MIRALAX *UNIT DOSE* 17GM PACKET PO PRN (09:45)
[2021-02-09] MEDS: CitaloPRAM (CeleXA) 20 MG TAB PO SCH (11:04)
[2021-02-09] MEDS: SYMBICORT 80/4.5MCG INHALER 6GM INH SCH ×2 (11:57→20:24)
[2021-02-09] MEDS ORDERED: GABAPENTIN 400MG CAP PO SCH (21:00)
[2021-02-09] MEDS ORDERED: LOSARTAN 50MG TABLET PO SCH (21:00)
[2021-02-09] MEDS ORDERED: CYANOCOBALAMIN 500 MCG TAB PO SCH (21:00)
[2021-02-09] MEDS ORDERED: LEVEMIR (INSULIN DETEMIR) 1 UNITS/0.01ML SC SCH (21:00)
[2021-02-09] MEDS ORDERED: DOCUSATE SODIUM 100MG CAPSULE PO SCH (21:00)
[2021-02-09] MEDS: PANTOPRAZOLE 40MG TAB (PROTONIX) PO SCH (21:43)
[2021-02-09] MEDS: ROSUVASTATIN 10 MG TAB (CRESTOR) PO SCH (21:44)
[2021-02-10] VITALS: BP 178/80
[2021-02-10 04:00] VITALS: BP 181/86
[2021-02-10 05:33] LABS: HEMATOCRIT 39.1 % (42.0-52.0); HEMOGLOBIN 13.2 g/dl (13.5-17.5); MEAN CORPUSCULAR HEMOGLOBIN 33.4 pg (27.0-33.0); MEAN CORPUSCULAR HGB CONC 33.8 g/dl (32.0-36.5); PLATELET COUNT, AUTOMATED 257 10^3/uL (150-450); RED BLOOD COUNT 3.95 10^6/uL (4.30-6.10); WHITE BLOOD COUNT 7.7 10^3/uL (4.0-10.0)
[2021-02-10] MEDS: **hydrALAZINE** 10 MG TAB PO SCH ×3 (05:48→12:00)
[2021-02-10 05:55] LABS: BLOOD UREA NITROGEN 12 MG/DL (7-18); CALCIUM LEVEL 8.6 MG/DL (8.8-10.2); CARBON DIOXIDE LEVEL 25 MEQ/L (21-32); CHLORIDE LEVEL 107 MEQ/L (98-107); CREATININE FOR GFR 0.81 MG/DL (0.70-1.30); GLOMERULAR FILTRATION RATE > 60.0 (>42); GLUCOSE, FASTING 164 MG/DL (70-100); POTASSIUM SERUM 3.9 MEQ/L (3.5-5.1); SODIUM LEVEL 140 MEQ/L (136-145)
[2021-02-10] MEDS: SYMBICORT 80/4.5MCG INHALER 6GM INH SCH (07:30)
[2021-02-10 07:40] VITALS: BP 189/86
[2021-02-10] MEDS: CitaloPRAM (CeleXA) 20 MG TAB PO SCH (08:25)
[2021-02-10] MEDS: PANTOPRAZOLE 40MG TAB (PROTONIX) PO SCH (08:25)
[2021-02-10] MEDS: LORATADINE 10 MG TAB PO SCH (08:25)
[2021-02-10] MEDS: ASPIRIN 81MG ENTERIC TABLET PO SCH (08:25)
[2021-02-10] MEDS: CLOPIDOGREL 75 MG TAB PO SCH (08:25)
[2021-02-10 08:26] VITALS: BP 181/90
[2021-02-10] MEDS: HumaLOG INSULIN (NovoLOG) PER UNIT SC SCH ×2 (08:26→12:38)
[2021-02-10] MEDS: METOPROLOL SUCC *XL* 12.5MG PER 1/2 TAB (TopROL *XL*) PO SCH (08:26)
[2021-02-10] MEDS ORDERED: CLOP75TA2 PO (10:59)
[2021-02-10 12:18] VITALS: BP 155/72
[2021-02-11 11:08] LABS: HEXAGONAL PHASE PHOSPHOLIPID 17 sec (0-11)
[2021-02-14 19:06] LABS: ANCA-ATYPICAL <1:20 titer (Neg:<1:20); ANTI THROMBIN 3 ANTIGEN IMMUNO 73 % (72-124); ANTI THROMBIN 3 FUNCT ACTIVITY 85 % (75-135); ANTINUCLEAR ANTIBODIES DIRECT Negative (Negative); CARDIOLIPIN IGA ANTIBODY <9 APL U/mL (0-11); CARDIOLIPIN IGG ANTIBODY <9 GPL U/mL (0-14); CARDIOLIPIN IGM ANTIBODY <9 MPL U/mL (0-12); CYTOPLASMIC NEUTROP AB ANCA-C <1:20 titer (Neg:<1:20); F8 ACTIVITY FOR F8 PANEL 63 % (56-140); F8 ACTIVITY vWB FOR F8 PANEL 43 % (50-200); F8 ANTIGEN FOR F8 PANEL 85 % (50-200); PERINUCLEAR AB ANCA-P <1:20 titer (Neg:<1:20); PROTEIN C ANTIGEN 74 % (60-150); PROTEIN S ANTIGEN FREE 58 % (61-136); PROTEIN S ANTIGEN TOTAL 63 % (60-150); SJOGREN'S ANTI SS-A <0.2 AI (0.0-0.9); SJOGREN'S ANTI SS-B <0.2 AI (0.0-0.9)
== END 2021-02-10 15:30 | DRG 66 ==
LOC: EDBD 19:42 → M ED 19:42 → M ED INP 02-08 00:54 → ENRESERV 02-08 13:50 → M PCU 02-08 15:47
PROVIDERS: ADMIT Family Medicine; ATTEND Family Medicine
DX: I63.9 Cerebral infarction, unspecified (principal); G31.83 Neurocognitive disorder with Lewy bodies; R26.89 Other abnormalities of gait and mobility; I25.10 Atherosclerotic heart disease of native coronary artery without angina pectoris; Z95.5 Presence of coronary angioplasty implant and graft; K21.9 Gastro-esophageal reflux disease without esophagitis; E11.42 Type 2 diabetes mellitus with diabetic polyneuropathy; I10 Essential (primary) hypertension; F41.9 Anxiety disorder, unspecified; E78.00 Pure hypercholesterolemia, unspecified; M48.061 Spinal stenosis, lumbar region without neurogenic claudication; M14.60 Charcot's joint, unspecified site; M19.90 Unspecified osteoarthritis, unspecified site; Z90.49 Acquired absence of other specified parts of digestive tract; F17.210 Nicotine dependence, cigarettes, uncomplicated; R53.1 Weakness; Z20.822 Contact with and (suspected) exposure to COVID-19; Z79.82 Long term (current) use of aspirin; Z79.4 Long term (current) use of insulin; Z79.84 Long term (current) use of oral hypoglycemic drugs; I69.344 Monoplegia of lower limb following cerebral infarction affecting left non-dominant side; Z66 Do not resuscitate

== ENCOUNTER 2021-02-10 11:20 | Inpatient (IN) | payer MEDICARE, BC, OTHER ==
[~2021-02-10] VITALS: Ht 172.7 cm; Wt 87.0 kg
[~2021-02-10 11:20] MED LIST changes: +ACET650T61 PO; +ASPI-161 PO; +B-12100010 PO; +CELE20TA PO; +CLOP75TA2 PO; +D3 H2000 PO; +DOCU100C16 PO; +FERR32TA PO; +FISH1000 PO; +FLON1SPR; +GABA-282 PO; +HYDR-4571 PO; +LORA-674 PO; +MAGN250T7 PO; +METF-877 PO; +MIRA1POW3 PO; +NITR0.4S14 SL; +OXYC-517 PO; +PSEU120T3 PO; +SYMB80INH INH; +VITATAB73 PO
[2021-02-10] MEDS ORDERED: ACETAMINOPHEN TAB 650MG DOSE (2X325MG) PO PRN (14:30)
[2021-02-10] MEDS ORDERED: GLUCAGON INJ 1MG VIAL SC PRN (14:30)
[2021-02-10] MEDS ORDERED: GLUCOSE 4GM CHEW TABLET PO PRN (14:30)
[2021-02-10] MEDS ORDERED: MAALOX 30 ML SUSP *UDC PO PRN (14:30)
[2021-02-10] MEDS ORDERED: DEXTROSE 50% 50 ML SYRINGE IV PRN (14:30)
[2021-02-10 15:40] VITALS: BP 186/84
[2021-02-10] MEDS ORDERED: HOME MED LIST COMPLETE! XX SCH (16:50)
[2021-02-10] MEDS: HumaLOG INSULIN (NovoLOG) PER UNIT SC SCH ×2 (18:45→20:31)
[2021-02-10] MEDS: **hydrALAZINE HCL** 25 MG TAB PO SCH (18:45)
[2021-02-10] MEDS: MAGIC MOUTHWASH SUSPENSION BTL SSP SCH (18:46)
[2021-02-10] MEDS: REMEDY PHYTOPLEX Z-GUARD PASTE 113GM TUBE (FROM STOREROOM PRODUCT) TOP SCH (18:47)
[2021-02-10 20:00] VITALS: BP 170/60
[2021-02-10] MEDS: SODIUM CHLORIDE NASAL 0.65% SPRAY BTL (OCEAN) SCH (20:28)
[2021-02-10] MEDS: ROSUVASTATIN 10 MG TAB (CRESTOR) PO SCH (20:29)
[2021-02-10] MEDS: FLUTICASONE PROP 0.05% NASAL SPRAY 16 GM (FLONASE) NARES SCH (20:29)
[2021-02-10] MEDS: GABAPENTIN 400MG CAP PO SCH (20:29)
[2021-02-10] MEDS: DOCUSATE SODIUM 100MG CAPSULE PO SCH (20:29)
[2021-02-10] MEDS: CYANOCOBALAMIN 500 MCG TAB PO SCH (20:30)
[2021-02-10] MEDS: SENNA 8.6 MG TAB (SENOKOT) PO SCH (20:30)
[2021-02-10] MEDS: LOSARTAN 50MG TABLET PO SCH (20:30)
[2021-02-10] MEDS: PANTOPRAZOLE 40MG TAB (PROTONIX) PO SCH (20:30)
[2021-02-10] MEDS: LEVEMIR (INSULIN DETEMIR) 1 UNITS/0.01ML SC SCH (20:31)
[2021-02-10] MEDS: SYMBICORT 80/4.5MCG INHALER 6GM INH SCH (20:46)
[2021-02-10] MEDS ORDERED: METOPROLOL SUCC *XL* 25MG TAB (TopROL *XL*) PO SCH (21:00)
[2021-02-11] MEDS: **hydrALAZINE HCL** 25 MG TAB PO SCH ×2 (00:13→05:51)
[2021-02-11] MEDS: REMEDY PHYTOPLEX Z-GUARD PASTE 113GM TUBE (FROM STOREROOM PRODUCT) TOP SCH ×5 (00:14→21:02)
[2021-02-11 01:34] VITALS: BP 158/80
[2021-02-11 06:00] VITALS: BP 156/70
[2021-02-11 06:02] LABS: BASO # 0.1 10^3/uL (0.0-0.2); EOS # 0.2 10^3/uL (0.0-0.5); EOS % 3.2 % (0.0-3.0); HEMATOCRIT 38.7 % (42.0-52.0); LYMPH # 1.8 10^3/uL (1.5-5.0); LYMPH % 29.8 % (24.0-44.0); MEAN CORPUSCULAR HEMOGLOBIN 33.2 pg (27.0-33.0); MEAN CORPUSCULAR HGB CONC 33.6 g/dl (32.0-36.5); MEAN CORPUSCULAR VOLUME 98.7 fl (80.0-96.0); MONO # 0.8 10^3/uL (0.0-0.8); MONO % 12.3 % (2.0-8.0); NEUTROPHILS # 3.3 10^3/uL (1.5-8.5); NEUTROPHILS % 53.2 % (36.0-66.0); PLATELET COUNT, AUTOMATED 256 10^3/uL (150-450); RED BLOOD COUNT 3.92 10^6/uL (4.30-6.10); WHITE BLOOD COUNT 6.2 10^3/uL (4.0-10.0)
[2021-02-11 06:27] LABS: ALBUMIN 3.4 GM/DL (3.2-5.2); ALT/SGPT 30 U/L (12-78); BILIRUBIN,TOTAL 0.6 MG/DL (0.2-1.0); BLOOD UREA NITROGEN 16 MG/DL (7-18); CALCIUM LEVEL 8.6 MG/DL (8.8-10.2); CARBON DIOXIDE LEVEL 25 MEQ/L (21-32); CHLORIDE LEVEL 108 MEQ/L (98-107); CREATININE FOR GFR 0.91 MG/DL (0.70-1.30); GLOMERULAR FILTRATION RATE > 60.0 (>42); GLUCOSE, FASTING 187 MG/DL (70-100); POTASSIUM SERUM 3.9 MEQ/L (3.5-5.1); SODIUM LEVEL 139 MEQ/L (136-145); TOTAL PROTEIN 6.5 GM/DL (6.4-8.2)
[2021-02-11] MEDS: SYMBICORT 80/4.5MCG INHALER 6GM INH SCH ×2 (07:42→20:37)
[2021-02-11] MEDS: HumaLOG INSULIN (NovoLOG) PER UNIT SC SCH ×4 (08:04→20:57)
[2021-02-11] MEDS: MAGIC MOUTHWASH SUSPENSION BTL SSP SCH ×3 (08:04→16:31)
[2021-02-11] MEDS: LORATADINE 10 MG TAB PO SCH (08:06)
[2021-02-11] MEDS: ASPIRIN 81MG ENTERIC TABLET PO SCH (08:06)
[2021-02-11] MEDS: CLOPIDOGREL 75 MG TAB PO SCH (08:06)
[2021-02-11] MEDS: DOCUSATE SODIUM 100MG CAPSULE PO SCH ×2 (08:06→20:57)
[2021-02-11] MEDS: FERROUS GLUCONATE 324 MG TAB PO SCH (08:06)
[2021-02-11] MEDS: SPIRONOLACTONE 25 MG TAB PO SCH (08:06)
[2021-02-11] MEDS: PANTOPRAZOLE 40MG TAB (PROTONIX) PO SCH ×2 (08:06→20:58)
[2021-02-11] MEDS: CitaloPRAM (CeleXA) 20 MG TAB PO SCH (08:06)
[2021-02-11] MEDS: FLUTICASONE PROP 0.05% NASAL SPRAY 16 GM (FLONASE) NARES SCH ×2 (08:08→21:01)
[2021-02-11] MEDS: SODIUM CHLORIDE NASAL 0.65% SPRAY BTL (OCEAN) SCH ×3 (08:08→21:01)
[2021-02-11] MEDS ORDERED: MIRALAX *UNIT DOSE* 17GM PACKET PO PRN (08:50)
[2021-02-11] MEDS ORDERED: LEVEMIR (INSULIN DETEMIR) 1 UNITS/0.01ML SC SCH (09:00)
[2021-02-11] MEDS ORDERED: MIRALAX *UNIT DOSE* 17GM PACKET PO SCH (09:00)
[2021-02-11] MEDS: amLODIPine 5 MG TAB PO SCH (13:09)
[2021-02-11] MEDS: **hydrALAZINE** 50 MG TAB PO SCH ×3 (13:09→23:54)
[2021-02-11 14:00] VITALS: BP 181/81
[2021-02-11] MEDS: metFORMIN (GLUCOPHAGE) 500MG TAB PO SCH (14:43)
[2021-02-11 18:30] VITALS: BP 164/82
[2021-02-11 20:00] VITALS: BP 169/74
[2021-02-11] MEDS: LEVEMIR (INSULIN DETEMIR) 1 UNITS/0.01ML SC SCH (20:56)
[2021-02-11] MEDS: METOPROLOL SUCC *XL* 12.5MG PER 1/2 TAB (TopROL *XL*) PO SCH (20:57)
[2021-02-11] MEDS: GABAPENTIN 400MG CAP PO SCH (20:57)
[2021-02-11] MEDS: METOPROLOL SUCC *XL* 25MG TAB (TopROL *XL*) PO SCH (20:58)
[2021-02-11] MEDS: CYANOCOBALAMIN 500 MCG TAB PO SCH (20:58)
[2021-02-11] MEDS: ROSUVASTATIN 10 MG TAB (CRESTOR) PO SCH (20:58)
[2021-02-11] MEDS: LOSARTAN 50MG TABLET PO SCH (20:58)
[2021-02-11] MEDS: SENNA 8.6 MG TAB (SENOKOT) PO SCH (21:00)
[2021-02-11] MEDS: LIDOCAINE 5% (LIDODERM) PATCH TD SCH (21:00)
[2021-02-11] MEDS: DICLOFENAC EPOLAMINE 1.3 % PATCH TOP SCH (21:01)
[2021-02-12] MEDS: **hydrALAZINE** 50 MG TAB PO SCH ×4 (05:39→23:30)
[2021-02-12] MEDS: REMEDY PHYTOPLEX Z-GUARD PASTE 113GM TUBE (FROM STOREROOM PRODUCT) TOP SCH ×4 (05:42→20:56)
[2021-02-12 06:00] VITALS: BP 144/80
[2021-02-12] MEDS: MAGIC MOUTHWASH SUSPENSION BTL SSP SCH ×3 (07:30→17:30)
[2021-02-12] MEDS: SYMBICORT 80/4.5MCG INHALER 6GM INH SCH ×2 (07:31→19:11)
[2021-02-12] MEDS: MIRALAX *UNIT DOSE* 17GM PACKET PO SCH (09:04)
[2021-02-12] MEDS: ASPIRIN 81MG ENTERIC TABLET PO SCH (09:05)
[2021-02-12] MEDS: HumaLOG INSULIN (NovoLOG) PER UNIT SC SCH ×4 (09:05→20:50)
[2021-02-12] MEDS: metFORMIN (GLUCOPHAGE) 500MG TAB PO SCH (09:05)
[2021-02-12] MEDS: LEVEMIR (INSULIN DETEMIR) 1 UNITS/0.01ML SC SCH ×2 (09:05→20:49)
[2021-02-12] MEDS: CitaloPRAM (CeleXA) 20 MG TAB PO SCH (09:05)
[2021-02-12] MEDS: DOCUSATE SODIUM 100MG CAPSULE PO SCH ×2 (09:05→20:53)
[2021-02-12] MEDS: amLODIPine 5 MG TAB PO SCH (09:06)
[2021-02-12] MEDS: CLOPIDOGREL 75 MG TAB PO SCH (09:06)
[2021-02-12] MEDS: LORATADINE 10 MG TAB PO SCH (09:06)
[2021-02-12] MEDS: PANTOPRAZOLE 40MG TAB (PROTONIX) PO SCH ×2 (09:06→20:51)
[2021-02-12] MEDS: FLUTICASONE PROP 0.05% NASAL SPRAY 16 GM (FLONASE) NARES SCH ×2 (09:07→20:55)
[2021-02-12] MEDS: DICLOFENAC EPOLAMINE 1.3 % PATCH TOP SCH ×2 (09:07→20:55)
[2021-02-12] MEDS: SODIUM CHLORIDE NASAL 0.65% SPRAY BTL (OCEAN) SCH ×3 (09:07→20:55)
[2021-02-12] MEDS: **NOTE PATIENT COMMENT** MISC XX SCH (09:08)
[2021-02-12 10:34] VITALS: BP 143/67
[2021-02-12 14:05] VITALS: BP 163/70
[2021-02-12] MEDS: metFORMIN (GLUCOPHAGE) 1000 MG TABLET PO SCH (18:17)
[2021-02-12] MEDS: METOPROLOL SUCC *XL* 12.5MG PER 1/2 TAB (TopROL *XL*) PO SCH (20:50)
[2021-02-12] MEDS: LOSARTAN 50MG TABLET PO SCH (20:51)
[2021-02-12] MEDS: GABAPENTIN 400MG CAP PO SCH (20:51)
[2021-02-12] MEDS: ROSUVASTATIN 10 MG TAB (CRESTOR) PO SCH (20:51)
[2021-02-12] MEDS: METOPROLOL SUCC *XL* 25MG TAB (TopROL *XL*) PO SCH (20:52)
[2021-02-12] MEDS: SENNA 8.6 MG TAB (SENOKOT) PO SCH (20:53)
[2021-02-12] MEDS: CYANOCOBALAMIN 500 MCG TAB PO SCH (20:53)
[2021-02-12] MEDS: LIDOCAINE 5% (LIDODERM) PATCH TD SCH (20:54)
[2021-02-12 22:07] VITALS: BP 156/71
[2021-02-13] MEDS: REMEDY PHYTOPLEX Z-GUARD PASTE 113GM TUBE (FROM STOREROOM PRODUCT) TOP SCH ×3 (05:17→18:00)
[2021-02-13] MEDS: **hydrALAZINE** 50 MG TAB PO SCH ×4 (05:17→23:55)
[2021-02-13 06:01] VITALS: BP 150/72
[2021-02-13] MEDS: SYMBICORT 80/4.5MCG INHALER 6GM INH SCH ×2 (07:20→18:18)
[2021-02-13] MEDS: ASPIRIN 81MG ENTERIC TABLET PO SCH (08:44)
[2021-02-13] MEDS: PANTOPRAZOLE 40MG TAB (PROTONIX) PO SCH ×2 (08:44→20:38)
[2021-02-13] MEDS: LORATADINE 10 MG TAB PO SCH (08:44)
[2021-02-13] MEDS: LEVEMIR (INSULIN DETEMIR) 1 UNITS/0.01ML SC SCH ×2 (08:44→20:36)
[2021-02-13] MEDS: CitaloPRAM (CeleXA) 20 MG TAB PO SCH (08:44)
[2021-02-13] MEDS: HumaLOG INSULIN (NovoLOG) PER UNIT SC SCH ×4 (08:44→20:39)
[2021-02-13] MEDS: DOCUSATE SODIUM 100MG CAPSULE PO SCH ×2 (08:44→20:38)
[2021-02-13] MEDS: amLODIPine 5 MG TAB PO SCH (08:45)
[2021-02-13] MEDS: MIRALAX *UNIT DOSE* 17GM PACKET PO SCH (08:45)
[2021-02-13] MEDS: **NOTE PATIENT COMMENT** MISC XX SCH (08:45)
[2021-02-13] MEDS: metFORMIN (GLUCOPHAGE) 1000 MG TABLET PO SCH ×2 (08:45→18:02)
[2021-02-13] MEDS: CLOPIDOGREL 75 MG TAB PO SCH (08:45)
[2021-02-13] MEDS: DICLOFENAC EPOLAMINE 1.3 % PATCH TOP SCH ×2 (08:45→20:40)
[2021-02-13] MEDS: FLUTICASONE PROP 0.05% NASAL SPRAY 16 GM (FLONASE) NARES SCH ×2 (08:46→20:40)
[2021-02-13] MEDS: MAGIC MOUTHWASH SUSPENSION BTL SSP SCH ×3 (08:46→18:01)
[2021-02-13] MEDS: SODIUM CHLORIDE NASAL 0.65% SPRAY BTL (OCEAN) SCH ×3 (08:46→20:40)
[2021-02-13 14:00] VITALS: BP 138/68
[2021-02-13 20:00] VITALS: BP 150/78
[2021-02-13] MEDS: ROSUVASTATIN 10 MG TAB (CRESTOR) PO SCH (20:36)
[2021-02-13] MEDS: GABAPENTIN 400MG CAP PO SCH (20:36)
[2021-02-13] MEDS: CYANOCOBALAMIN 500 MCG TAB PO SCH (20:37)
[2021-02-13] MEDS: METOPROLOL SUCC *XL* 12.5MG PER 1/2 TAB (TopROL *XL*) PO SCH (20:37)
[2021-02-13] MEDS: METOPROLOL SUCC *XL* 25MG TAB (TopROL *XL*) PO SCH (20:38)
[2021-02-13] MEDS: SENNA 8.6 MG TAB (SENOKOT) PO SCH (20:38)
[2021-02-13] MEDS: LOSARTAN 50MG TABLET PO SCH (20:38)
[2021-02-13] MEDS: LIDOCAINE 5% (LIDODERM) PATCH TD SCH (20:39)
[2021-02-14] MEDS: REMEDY PHYTOPLEX Z-GUARD PASTE 113GM TUBE (FROM STOREROOM PRODUCT) TOP SCH ×5 (00:02→23:56)
[2021-02-14] MEDS: **hydrALAZINE** 50 MG TAB PO SCH ×4 (05:11→23:56)
[2021-02-14 06:00] VITALS: BP 155/72
[2021-02-14] MEDS: HumaLOG INSULIN (NovoLOG) PER UNIT SC SCH ×4 (07:30→20:51)
[2021-02-14] MEDS: SYMBICORT 80/4.5MCG INHALER 6GM INH SCH ×2 (07:33→20:00)
[2021-02-14] MEDS: metFORMIN (GLUCOPHAGE) 1000 MG TABLET PO SCH (07:46)
[2021-02-14] MEDS: SPIRONOLACTONE 25 MG TAB PO SCH (07:47)
[2021-02-14] MEDS: MIRALAX *UNIT DOSE* 17GM PACKET PO SCH (07:47)
[2021-02-14] MEDS: ASPIRIN 81MG ENTERIC TABLET PO SCH (07:48)
[2021-02-14] MEDS: FERROUS GLUCONATE 324 MG TAB PO SCH (07:48)
[2021-02-14] MEDS: LORATADINE 10 MG TAB PO SCH (07:48)
[2021-02-14] MEDS: CitaloPRAM (CeleXA) 20 MG TAB PO SCH (07:48)
[2021-02-14] MEDS: DOCUSATE SODIUM 100MG CAPSULE PO SCH ×2 (07:48→20:48)
[2021-02-14] MEDS: CLOPIDOGREL 75 MG TAB PO SCH (07:49)
[2021-02-14] MEDS: amLODIPine 5 MG TAB PO SCH (07:49)
[2021-02-14] MEDS: PANTOPRAZOLE 40MG TAB (PROTONIX) PO SCH ×2 (07:49→20:49)
[2021-02-14] MEDS: LEVEMIR (INSULIN DETEMIR) 1 UNITS/0.01ML SC SCH ×2 (07:51→20:51)
[2021-02-14] MEDS: SODIUM CHLORIDE NASAL 0.65% SPRAY BTL (OCEAN) SCH ×3 (07:52→20:51)
[2021-02-14] MEDS: FLUTICASONE PROP 0.05% NASAL SPRAY 16 GM (FLONASE) NARES SCH ×2 (07:53→20:51)
[2021-02-14] MEDS: MAGIC MOUTHWASH SUSPENSION BTL SSP SCH ×3 (07:54→17:30)
[2021-02-14 08:02] LABS: BASO % 0.5 % (0.0-1.0); EOS # 0.3 10^3/uL (0.0-0.5); EOS % 4.1 % (0.0-3.0); HEMATOCRIT 38.6 % (42.0-52.0); LYMPH # 1.9 10^3/uL (1.5-5.0); LYMPH % 30.5 % (24.0-44.0); MEAN CORPUSCULAR HEMOGLOBIN 33.3 pg (27.0-33.0); MEAN CORPUSCULAR HGB CONC 33.7 g/dl (32.0-36.5); MONO # 0.5 10^3/uL (0.0-0.8); MONO % 8.5 % (2.0-8.0); NEUTROPHILS # 3.6 10^3/uL (1.5-8.5); NEUTROPHILS % 56.1 % (36.0-66.0); PLATELET COUNT, AUTOMATED 276 10^3/uL (150-450); WHITE BLOOD COUNT 6.4 10^3/uL (4.0-10.0)
[2021-02-14 08:19] LABS: BLOOD UREA NITROGEN 18 MG/DL (7-18); CALCIUM LEVEL 8.6 MG/DL (8.8-10.2); CARBON DIOXIDE LEVEL 24 MEQ/L (21-32); CHLORIDE LEVEL 107 MEQ/L (98-107); CREATININE FOR GFR 0.76 MG/DL (0.70-1.30); GLOMERULAR FILTRATION RATE > 60.0 (>42); GLUCOSE, FASTING 83 MG/DL (70-100); POTASSIUM SERUM 3.6 MEQ/L (3.5-5.1); SODIUM LEVEL 139 MEQ/L (136-145)
[2021-02-14] MEDS: **NOTE PATIENT COMMENT** MISC XX SCH (09:00)
[2021-02-14] MEDS: DICLOFENAC EPOLAMINE 1.3 % PATCH TOP SCH ×2 (12:11→20:53)
[2021-02-14 14:00] VITALS: BP 148/67
[2021-02-14] MEDS: NORCO, ANEXSIA 5/325MG TABLET (HYDROcodone/ACETAMINOPHEN) PO PRN (14:00)
[2021-02-14] MEDS: ACETAMINOPHEN 325 MG TAB PO SCH ×2 (14:20→20:50)
[2021-02-14] MEDS: ANALGESIC BALM CRM 3OZ TOP SCH ×2 (16:11→20:52)
[2021-02-14] MEDS: metFORMIN (GLUCOPHAGE) 500MG TAB PO SCH (17:37)
[2021-02-14 20:00] VITALS: BP 142/66
[2021-02-14] MEDS: CYANOCOBALAMIN 500 MCG TAB PO SCH (20:47)
[2021-02-14] MEDS: ROSUVASTATIN 10 MG TAB (CRESTOR) PO SCH (20:47)
[2021-02-14] MEDS: GABAPENTIN 400MG CAP PO SCH (20:48)
[2021-02-14] MEDS: SENNA 8.6 MG TAB (SENOKOT) PO SCH (20:48)
[2021-02-14] MEDS: LOSARTAN 50MG TABLET PO SCH (20:48)
[2021-02-14] MEDS: METOPROLOL SUCC (TopROL XL) 50MG **XL** TAB PO SCH (20:49)
[2021-02-14] MEDS: LIDOCAINE 5% (LIDODERM) PATCH TD SCH (20:52)
[2021-02-15] MEDS: **hydrALAZINE** 50 MG TAB PO SCH ×4 (05:04→23:45)
[2021-02-15] MEDS: REMEDY PHYTOPLEX Z-GUARD PASTE 113GM TUBE (FROM STOREROOM PRODUCT) TOP SCH ×4 (05:04→23:44)
[2021-02-15 06:00] VITALS: BP 134/63
[2021-02-15] MEDS: MAGIC MOUTHWASH SUSPENSION BTL SSP SCH ×3 (07:30→17:30)
[2021-02-15] MEDS: SYMBICORT 80/4.5MCG INHALER 6GM INH SCH ×2 (08:34→20:00)
[2021-02-15] MEDS: ASPIRIN 81MG ENTERIC TABLET PO SCH (08:43)
[2021-02-15] MEDS: LORATADINE 10 MG TAB PO SCH (08:43)
[2021-02-15] MEDS: CLOPIDOGREL 75 MG TAB PO SCH (08:43)
[2021-02-15] MEDS: HumaLOG INSULIN (NovoLOG) PER UNIT SC SCH ×4 (08:43→20:43)
[2021-02-15] MEDS: CitaloPRAM (CeleXA) 20 MG TAB PO SCH (08:43)
[2021-02-15] MEDS: amLODIPine 5 MG TAB PO SCH (08:44)
[2021-02-15] MEDS: MIRALAX *UNIT DOSE* 17GM PACKET PO SCH (08:45)
[2021-02-15] MEDS: ACETAMINOPHEN 325 MG TAB PO SCH ×3 (08:45→20:41)
[2021-02-15] MEDS: PANTOPRAZOLE 40MG TAB (PROTONIX) PO SCH ×2 (08:45→20:42)
[2021-02-15] MEDS: metFORMIN (GLUCOPHAGE) 500MG TAB PO SCH ×2 (08:46→17:44)
[2021-02-15] MEDS: DOCUSATE SODIUM 100MG CAPSULE PO SCH ×2 (08:50→20:42)
[2021-02-15] MEDS: **NOTE PATIENT COMMENT** MISC XX SCH (08:52)
[2021-02-15] MEDS: DICLOFENAC EPOLAMINE 1.3 % PATCH TOP SCH ×2 (08:52→20:47)
[2021-02-15] MEDS: SODIUM CHLORIDE NASAL 0.65% SPRAY BTL (OCEAN) SCH ×3 (09:04→20:44)
[2021-02-15] MEDS: ANALGESIC BALM CRM 3OZ TOP SCH ×3 (09:04→20:47)
[2021-02-15] MEDS: FLUTICASONE PROP 0.05% NASAL SPRAY 16 GM (FLONASE) NARES SCH ×2 (09:04→20:44)
[2021-02-15] MEDS: NORCO, ANEXSIA 5/325MG TABLET (HYDROcodone/ACETAMINOPHEN) PO PRN (13:51)
[2021-02-15 14:00] VITALS: BP 137/63
[2021-02-15 19:34] VITALS: BP 158/70
[2021-02-15] MEDS: GABAPENTIN 400MG CAP PO SCH (20:41)
[2021-02-15] MEDS: LOSARTAN 50MG TABLET PO SCH (20:42)
[2021-02-15] MEDS: SENNA 8.6 MG TAB (SENOKOT) PO SCH (20:42)
[2021-02-15] MEDS: ROSUVASTATIN 10 MG TAB (CRESTOR) PO SCH (20:42)
[2021-02-15] MEDS: METOPROLOL SUCC (TopROL XL) 50MG **XL** TAB PO SCH (20:43)
[2021-02-15] MEDS: CYANOCOBALAMIN 500 MCG TAB PO SCH (20:43)
[2021-02-15] MEDS: LEVEMIR (INSULIN DETEMIR) 1 UNITS/0.01ML SC SCH (20:43)
[2021-02-15] MEDS: LIDOCAINE 5% (LIDODERM) PATCH TD SCH (20:44)
[2021-02-16] MEDS: **hydrALAZINE** 50 MG TAB PO SCH ×4 (05:48→23:09)
[2021-02-16] MEDS: REMEDY PHYTOPLEX Z-GUARD PASTE 113GM TUBE (FROM STOREROOM PRODUCT) TOP SCH ×4 (05:49→21:36)
[2021-02-16 06:09] VITALS: BP 160/71
[2021-02-16] MEDS: SYMBICORT 80/4.5MCG INHALER 6GM INH SCH ×2 (07:30→20:43)
[2021-02-16] MEDS: MAGIC MOUTHWASH SUSPENSION BTL SSP SCH ×3 (07:31→16:26)
[2021-02-16] MEDS: HumaLOG INSULIN (NovoLOG) PER UNIT SC SCH ×4 (07:32→21:00)
[2021-02-16] MEDS: amLODIPine 5 MG TAB PO SCH (07:34)
[2021-02-16] MEDS: ASPIRIN 81MG ENTERIC TABLET PO SCH (07:35)
[2021-02-16] MEDS: DOCUSATE SODIUM 100MG CAPSULE PO SCH ×2 (07:35→21:30)
[2021-02-16] MEDS: CitaloPRAM (CeleXA) 20 MG TAB PO SCH (07:35)
[2021-02-16] MEDS: CLOPIDOGREL 75 MG TAB PO SCH (07:35)
[2021-02-16] MEDS: PANTOPRAZOLE 40MG TAB (PROTONIX) PO SCH ×2 (07:35→21:31)
[2021-02-16] MEDS: ACETAMINOPHEN 325 MG TAB PO SCH ×3 (07:35→21:33)
[2021-02-16] MEDS: FERROUS GLUCONATE 324 MG TAB PO SCH (07:35)
[2021-02-16] MEDS: MIRALAX *UNIT DOSE* 17GM PACKET PO SCH (07:35)
[2021-02-16] MEDS: metFORMIN (GLUCOPHAGE) 500MG TAB PO SCH ×2 (07:36→17:43)
[2021-02-16] MEDS: LORATADINE 10 MG TAB PO SCH (07:36)
[2021-02-16] MEDS: SPIRONOLACTONE 25 MG TAB PO SCH (07:36)
[2021-02-16] MEDS: FLUTICASONE PROP 0.05% NASAL SPRAY 16 GM (FLONASE) NARES SCH ×2 (07:37→21:35)
[2021-02-16] MEDS: SODIUM CHLORIDE NASAL 0.65% SPRAY BTL (OCEAN) SCH ×3 (07:37→21:35)
[2021-02-16] MEDS: ANALGESIC BALM CRM 3OZ TOP SCH ×3 (07:37→21:35)
[2021-02-16] MEDS: DICLOFENAC EPOLAMINE 1.3 % PATCH TOP SCH ×2 (07:38→21:34)
[2021-02-16] MEDS: **NOTE PATIENT COMMENT** MISC XX SCH (07:38)
[2021-02-16 08:15] LABS: BASO # 0.1 10^3/uL (0.0-0.2); BASO % 0.9 % (0.0-1.0); EOS # 0.2 10^3/uL (0.0-0.5); EOS % 3.9 % (0.0-3.0); HEMATOCRIT 39.3 % (42.0-52.0); HEMOGLOBIN 13.4 g/dl (13.5-17.5); LYMPH # 2.1 10^3/uL (1.5-5.0); MEAN CORPUSCULAR HEMOGLOBIN 33.8 pg (27.0-33.0); MEAN CORPUSCULAR HGB CONC 34.1 g/dl (32.0-36.5); MEAN CORPUSCULAR VOLUME 99.2 fl (80.0-96.0); MONO # 0.6 10^3/uL (0.0-0.8); MONO % 10.5 % (2.0-8.0); NEUTROPHILS # 2.6 10^3/uL (1.5-8.5); NEUTROPHILS % 46.5 % (36.0-66.0); PLATELET COUNT, AUTOMATED 304 10^3/uL (150-450); RED BLOOD COUNT 3.96 10^6/uL (4.30-6.10); WHITE BLOOD COUNT 5.6 10^3/uL (4.0-10.0)
[2021-02-16 08:38] LABS: BLOOD UREA NITROGEN 18 MG/DL (7-18); CALCIUM LEVEL 8.9 MG/DL (8.8-10.2); CARBON DIOXIDE LEVEL 24 MEQ/L (21-32); CHLORIDE LEVEL 106 MEQ/L (98-107); CREATININE FOR GFR 0.92 MG/DL (0.70-1.30); GLOMERULAR FILTRATION RATE > 60.0 (>42); GLUCOSE, FASTING 182 MG/DL (70-100); SODIUM LEVEL 138 MEQ/L (136-145)
[2021-02-16] MEDS: NORCO, ANEXSIA 5/325MG TABLET (HYDROcodone/ACETAMINOPHEN) PO PRN (11:54)
[2021-02-16 14:00] VITALS: BP 136/62
[2021-02-16 20:00] VITALS: BP 149/80
[2021-02-16] MEDS: CYANOCOBALAMIN 500 MCG TAB PO SCH (21:30)
[2021-02-16] MEDS: SENNA 8.6 MG TAB (SENOKOT) PO SCH (21:31)
[2021-02-16] MEDS: GABAPENTIN 400MG CAP PO SCH (21:31)
[2021-02-16] MEDS: LOSARTAN 50MG TABLET PO SCH (21:32)
[2021-02-16] MEDS: ROSUVASTATIN 10 MG TAB (CRESTOR) PO SCH (21:32)
[2021-02-16] MEDS: METOPROLOL SUCC (TopROL XL) 50MG **XL** TAB PO SCH (21:32)
[2021-02-16] MEDS: LEVEMIR (INSULIN DETEMIR) 1 UNITS/0.01ML SC SCH (21:33)
[2021-02-16] MEDS: LIDOCAINE 5% (LIDODERM) PATCH TD SCH (21:34)
[2021-02-17] MEDS: **hydrALAZINE** 50 MG TAB PO SCH ×4 (05:13→23:38)
[2021-02-17] MEDS: REMEDY PHYTOPLEX Z-GUARD PASTE 113GM TUBE (FROM STOREROOM PRODUCT) TOP SCH ×4 (05:13→23:38)
[2021-02-17] MEDS: SYMBICORT 80/4.5MCG INHALER 6GM INH SCH ×2 (07:45→21:10)
[2021-02-17] MEDS: HumaLOG INSULIN (NovoLOG) PER UNIT SC SCH ×4 (08:30→20:14)
[2021-02-17] MEDS: MAGIC MOUTHWASH SUSPENSION BTL SSP SCH ×3 (08:30→17:30)
[2021-02-17] MEDS: metFORMIN (GLUCOPHAGE) 500MG TAB PO SCH ×2 (08:31→16:44)
[2021-02-17] MEDS: DOCUSATE SODIUM 100MG CAPSULE PO SCH ×2 (08:31→20:23)
[2021-02-17] MEDS: CitaloPRAM (CeleXA) 20 MG TAB PO SCH (08:31)
[2021-02-17] MEDS: LORATADINE 10 MG TAB PO SCH (08:31)
[2021-02-17] MEDS: MIRALAX *UNIT DOSE* 17GM PACKET PO SCH (08:31)
[2021-02-17] MEDS: CLOPIDOGREL 75 MG TAB PO SCH (08:32)
[2021-02-17] MEDS: PANTOPRAZOLE 40MG TAB (PROTONIX) PO SCH ×2 (08:32→20:24)
[2021-02-17] MEDS: ASPIRIN 81MG ENTERIC TABLET PO SCH (08:32)
[2021-02-17] MEDS: DICLOFENAC EPOLAMINE 1.3 % PATCH TOP SCH ×2 (08:33→20:26)
[2021-02-17] MEDS: ACETAMINOPHEN 325 MG TAB PO SCH ×3 (08:33→20:24)
[2021-02-17] MEDS: FLUTICASONE PROP 0.05% NASAL SPRAY 16 GM (FLONASE) NARES SCH ×2 (08:33→20:25)
[2021-02-17] MEDS: SODIUM CHLORIDE NASAL 0.65% SPRAY BTL (OCEAN) SCH ×3 (08:33→20:25)
[2021-02-17] MEDS: ANALGESIC BALM CRM 3OZ TOP SCH ×3 (08:34→21:00)
[2021-02-17] MEDS: **NOTE PATIENT COMMENT** MISC XX SCH (09:00)
[2021-02-17] MEDS: NORCO, ANEXSIA 5/325MG TABLET (HYDROcodone/ACETAMINOPHEN) PO PRN (10:32)
[2021-02-17 10:41] VITALS: BP 138/51
[2021-02-17 12:18] VITALS: BP 142/66
[2021-02-17 15:46] VITALS: BP 144/67
[2021-02-17 20:00] VITALS: BP 148/66
[2021-02-17] MEDS: METOPROLOL SUCC (TopROL XL) 50MG **XL** TAB PO SCH (20:23)
[2021-02-17] MEDS: SENNA 8.6 MG TAB (SENOKOT) PO SCH (20:23)
[2021-02-17] MEDS: CYANOCOBALAMIN 500 MCG TAB PO SCH (20:23)
[2021-02-17] MEDS: ROSUVASTATIN 10 MG TAB (CRESTOR) PO SCH (20:24)
[2021-02-17] MEDS: LOSARTAN 50MG TABLET PO SCH (20:24)
[2021-02-17] MEDS: GABAPENTIN 400MG CAP PO SCH (20:25)
[2021-02-17] MEDS: LEVEMIR (INSULIN DETEMIR) 1 UNITS/0.01ML SC SCH (20:25)
[2021-02-17] MEDS: LIDOCAINE 5% (LIDODERM) PATCH TD SCH (20:26)
[2021-02-18] MEDS: **hydrALAZINE** 50 MG TAB PO SCH ×4 (04:39→23:40)
[2021-02-18] MEDS: REMEDY PHYTOPLEX Z-GUARD PASTE 113GM TUBE (FROM STOREROOM PRODUCT) TOP SCH ×4 (04:40→23:40)
[2021-02-18 06:00] VITALS: BP 152/63
[2021-02-18 06:26] LABS: BASO # 0.1 10^3/uL (0.0-0.2); BASO % 1.2 % (0.0-1.0); EOS # 0.2 10^3/uL (0.0-0.5); EOS % 3.6 % (0.0-3.0); HEMATOCRIT 35.5 % (42.0-52.0); HEMOGLOBIN 12.2 g/dl (13.5-17.5); LYMPH # 1.8 10^3/uL (1.5-5.0); LYMPH % 42.5 % (24.0-44.0); MEAN CORPUSCULAR HEMOGLOBIN 33.6 pg (27.0-33.0); MEAN CORPUSCULAR HGB CONC 34.4 g/dl (32.0-36.5); MEAN CORPUSCULAR VOLUME 97.8 fl (80.0-96.0); MONO # 0.4 10^3/uL (0.0-0.8); MONO % 10.4 % (2.0-8.0); NEUTROPHILS # 1.7 10^3/uL (1.5-8.5); NEUTROPHILS % 42.1 % (36.0-66.0); PLATELET COUNT, AUTOMATED 262 10^3/uL (150-450); RED BLOOD COUNT 3.63 10^6/uL (4.30-6.10); WHITE BLOOD COUNT 4.1 10^3/uL (4.0-10.0)
[2021-02-18 06:56] LABS: BLOOD UREA NITROGEN 12 MG/DL (7-18); CALCIUM LEVEL 8.9 MG/DL (8.8-10.2); CARBON DIOXIDE LEVEL 25 MEQ/L (21-32); CHLORIDE LEVEL 108 MEQ/L (98-107); GLOMERULAR FILTRATION RATE > 60.0 (>42); GLUCOSE, FASTING 112 MG/DL (70-100); POTASSIUM SERUM 3.8 MEQ/L (3.5-5.1); SODIUM LEVEL 139 MEQ/L (136-145)
[2021-02-18] MEDS: MAGIC MOUTHWASH SUSPENSION BTL SSP SCH ×3 (07:30→17:28)
[2021-02-18] MEDS: SYMBICORT 80/4.5MCG INHALER 6GM INH SCH ×2 (07:37→20:00)
[2021-02-18] MEDS: MIRALAX *UNIT DOSE* 17GM PACKET PO SCH (09:22)
[2021-02-18] MEDS: HumaLOG INSULIN (NovoLOG) PER UNIT SC SCH ×4 (09:22→21:06)
[2021-02-18] MEDS: metFORMIN (GLUCOPHAGE) 500MG TAB PO SCH ×2 (09:23→17:29)
[2021-02-18] MEDS: PANTOPRAZOLE 40MG TAB (PROTONIX) PO SCH ×2 (09:23→21:09)
[2021-02-18] MEDS: ASPIRIN 81MG ENTERIC TABLET PO SCH (09:25)
[2021-02-18] MEDS: DOCUSATE SODIUM 100MG CAPSULE PO SCH ×2 (09:25→21:09)
[2021-02-18] MEDS: LORATADINE 10 MG TAB PO SCH (09:26)
[2021-02-18] MEDS: FERROUS GLUCONATE 324 MG TAB PO SCH (09:26)
[2021-02-18] MEDS: CLOPIDOGREL 75 MG TAB PO SCH (09:26)
[2021-02-18] MEDS: CitaloPRAM (CeleXA) 20 MG TAB PO SCH (09:26)
[2021-02-18] MEDS: SPIRONOLACTONE 25 MG TAB PO SCH (09:26)
[2021-02-18] MEDS: ACETAMINOPHEN 325 MG TAB PO SCH ×3 (09:28→21:09)
[2021-02-18] MEDS: **NOTE PATIENT COMMENT** MISC XX SCH (09:37)
[2021-02-18] MEDS: DICLOFENAC EPOLAMINE 1.3 % PATCH TOP SCH ×2 (09:38→21:07)
[2021-02-18] MEDS: FLUTICASONE PROP 0.05% NASAL SPRAY 16 GM (FLONASE) NARES SCH ×2 (09:42→21:10)
[2021-02-18] MEDS: ANALGESIC BALM CRM 3OZ TOP SCH ×3 (09:42→21:10)
[2021-02-18] MEDS: SODIUM CHLORIDE NASAL 0.65% SPRAY BTL (OCEAN) SCH ×3 (09:43→21:10)
[2021-02-18 14:00] VITALS: BP 150/70
[2021-02-18] MEDS: NORCO, ANEXSIA 5/325MG TABLET (HYDROcodone/ACETAMINOPHEN) PO PRN ×2 (17:27→19:46)
[2021-02-18] MEDS: QUEtiapine FUMARATE 12.5 MG HALF-TAB PO PRN ×2 (17:30→19:45)
[2021-02-18 20:00] VITALS: BP 134/64
[2021-02-18] MEDS: LEVEMIR (INSULIN DETEMIR) 1 UNITS/0.01ML SC SCH (21:06)
[2021-02-18] MEDS: CYANOCOBALAMIN 500 MCG TAB PO SCH (21:07)
[2021-02-18] MEDS: LIDOCAINE 5% (LIDODERM) PATCH TD SCH (21:07)
[2021-02-18] MEDS: LOSARTAN 50MG TABLET PO SCH (21:08)
[2021-02-18] MEDS: ROSUVASTATIN 10 MG TAB (CRESTOR) PO SCH (21:08)
[2021-02-18] MEDS: GABAPENTIN 400MG CAP PO SCH (21:08)
[2021-02-18] MEDS: SENNA 8.6 MG TAB (SENOKOT) PO SCH (21:09)
[2021-02-18] MEDS: METOPROLOL SUCC (TopROL XL) 50MG **XL** TAB PO SCH (21:09)
[2021-02-19] MEDS: **hydrALAZINE** 50 MG TAB PO SCH ×4 (05:16→23:33)
[2021-02-19] MEDS: REMEDY PHYTOPLEX Z-GUARD PASTE 113GM TUBE (FROM STOREROOM PRODUCT) TOP SCH ×4 (05:16→23:33)
[2021-02-19 06:00] VITALS: BP 136/65
[2021-02-19] MEDS: SYMBICORT 80/4.5MCG INHALER 6GM INH SCH ×2 (08:00→19:42)
[2021-02-19] MEDS: MAGIC MOUTHWASH SUSPENSION BTL SSP SCH ×3 (09:36→17:21)
[2021-02-19] MEDS: HumaLOG INSULIN (NovoLOG) PER UNIT SC SCH ×4 (09:37→20:35)
[2021-02-19] MEDS: CitaloPRAM (CeleXA) 20 MG TAB PO SCH (09:40)
[2021-02-19] MEDS: metFORMIN (GLUCOPHAGE) 500MG TAB PO SCH ×2 (09:40→17:20)
[2021-02-19] MEDS: SPIRONOLACTONE 25 MG TAB PO SCH (09:40)
[2021-02-19] MEDS: MIRALAX *UNIT DOSE* 17GM PACKET PO SCH (09:40)
[2021-02-19] MEDS: DOCUSATE SODIUM 100MG CAPSULE PO SCH ×2 (09:41→20:33)
[2021-02-19] MEDS: PANTOPRAZOLE 40MG TAB (PROTONIX) PO SCH ×2 (09:41→20:33)
[2021-02-19] MEDS: ASPIRIN 81MG ENTERIC TABLET PO SCH (09:41)
[2021-02-19] MEDS: LORATADINE 10 MG TAB PO SCH (09:41)
[2021-02-19] MEDS: CLOPIDOGREL 75 MG TAB PO SCH (09:41)
[2021-02-19] MEDS: DICLOFENAC EPOLAMINE 1.3 % PATCH TOP SCH ×2 (09:42→20:36)
[2021-02-19] MEDS: ANALGESIC BALM CRM 3OZ TOP SCH ×3 (09:42→20:37)
[2021-02-19] MEDS: **NOTE PATIENT COMMENT** MISC XX SCH (09:42)
[2021-02-19] MEDS: ACETAMINOPHEN 325 MG TAB PO SCH ×3 (09:42→20:32)
[2021-02-19] MEDS: SODIUM CHLORIDE NASAL 0.65% SPRAY BTL (OCEAN) SCH ×3 (09:43→20:35)
[2021-02-19] MEDS: FLUTICASONE PROP 0.05% NASAL SPRAY 16 GM (FLONASE) NARES SCH ×2 (09:43→20:35)
[2021-02-19 15:00] VITALS: BP 168/74
[2021-02-19 20:00] VITALS: BP 162/74
[2021-02-19] MEDS: GABAPENTIN 400MG CAP PO SCH (20:32)
[2021-02-19] MEDS: ROSUVASTATIN 10 MG TAB (CRESTOR) PO SCH (20:33)
[2021-02-19] MEDS: METOPROLOL SUCC (TopROL XL) 50MG **XL** TAB PO SCH (20:33)
[2021-02-19] MEDS: CYANOCOBALAMIN 500 MCG TAB PO SCH (20:33)
[2021-02-19] MEDS: SENNA 8.6 MG TAB (SENOKOT) PO SCH (20:33)
[2021-02-19] MEDS: LOSARTAN 50MG TABLET PO SCH (20:34)
[2021-02-19] MEDS: LEVEMIR (INSULIN DETEMIR) 1 UNITS/0.01ML SC SCH (20:35)
[2021-02-19] MEDS: LIDOCAINE 5% (LIDODERM) PATCH TD SCH (20:36)
[2021-02-20 06:00] VITALS: BP 150/80
[2021-02-20] MEDS: **hydrALAZINE** 50 MG TAB PO SCH ×3 (06:03→17:06)
[2021-02-20] MEDS: REMEDY PHYTOPLEX Z-GUARD PASTE 113GM TUBE (FROM STOREROOM PRODUCT) TOP SCH ×3 (06:04→18:00)
[2021-02-20] MEDS: HumaLOG INSULIN (NovoLOG) PER UNIT SC SCH ×4 (07:30→20:10)
[2021-02-20] MEDS: SYMBICORT 80/4.5MCG INHALER 6GM INH SCH ×2 (07:58→20:55)
[2021-02-20] MEDS: metFORMIN (GLUCOPHAGE) 500MG TAB PO SCH ×2 (08:00→17:10)
[2021-02-20] MEDS: MIRALAX *UNIT DOSE* 17GM PACKET PO SCH (08:00)
[2021-02-20] MEDS: MAGIC MOUTHWASH SUSPENSION BTL SSP SCH ×3 (08:23→17:30)
[2021-02-20] MEDS: SPIRONOLACTONE 25 MG TAB PO SCH (08:24)
[2021-02-20] MEDS: ASPIRIN 81MG ENTERIC TABLET PO SCH (08:25)
[2021-02-20] MEDS: LORATADINE 10 MG TAB PO SCH (08:25)
[2021-02-20] MEDS: CitaloPRAM (CeleXA) 20 MG TAB PO SCH (08:25)
[2021-02-20] MEDS: PANTOPRAZOLE 40MG TAB (PROTONIX) PO SCH ×2 (08:26→21:07)
[2021-02-20] MEDS: ACETAMINOPHEN 325 MG TAB PO SCH ×3 (08:26→21:06)
[2021-02-20] MEDS: CLOPIDOGREL 75 MG TAB PO SCH (08:26)
[2021-02-20] MEDS: SODIUM CHLORIDE NASAL 0.65% SPRAY BTL (OCEAN) SCH ×3 (08:26→21:08)
[2021-02-20] MEDS: **NOTE PATIENT COMMENT** MISC XX SCH (08:27)
[2021-02-20] MEDS: ANALGESIC BALM CRM 3OZ TOP SCH ×4 (08:27→21:10)
[2021-02-20] MEDS: DICLOFENAC EPOLAMINE 1.3 % PATCH TOP SCH ×2 (08:27→21:09)
[2021-02-20] MEDS: FLUTICASONE PROP 0.05% NASAL SPRAY 16 GM (FLONASE) NARES SCH ×2 (08:27→21:08)
[2021-02-20] MEDS: DOCUSATE SODIUM 100MG CAPSULE PO SCH ×2 (08:28→21:05)
[2021-02-20 12:35] VITALS: BP 133/68
[2021-02-20 14:00] VITALS: BP 164/74
[2021-02-20 19:46] VITALS: BP 168/71
[2021-02-20 21:01] VITALS: BP 147/66
[2021-02-20] MEDS: LEVEMIR (INSULIN DETEMIR) 1 UNITS/0.01ML SC SCH (21:04)
[2021-02-20] MEDS: GABAPENTIN 400MG CAP PO SCH (21:05)
[2021-02-20] MEDS: METOPROLOL SUCC (TopROL XL) 50MG **XL** TAB PO SCH (21:05)
[2021-02-20] MEDS: ROSUVASTATIN 10 MG TAB (CRESTOR) PO SCH (21:05)
[2021-02-20] MEDS: LOSARTAN 50MG TABLET PO SCH (21:06)
[2021-02-20] MEDS: CYANOCOBALAMIN 500 MCG TAB PO SCH (21:07)
[2021-02-20] MEDS: SENNA 8.6 MG TAB (SENOKOT) PO SCH (21:07)
[2021-02-20] MEDS: LIDOCAINE 5% (LIDODERM) PATCH TD SCH (21:09)
[2021-02-21 00:28] VITALS: BP 152/76
[2021-02-21] MEDS: **hydrALAZINE** 50 MG TAB PO SCH ×5 (00:30→23:51)
[2021-02-21] MEDS: REMEDY PHYTOPLEX Z-GUARD PASTE 113GM TUBE (FROM STOREROOM PRODUCT) TOP SCH ×5 (06:00→23:50)
[2021-02-21 06:01] VITALS: BP 145/67
[2021-02-21 06:45] LABS: BASO # 0.1 10^3/uL (0.0-0.2); BASO % 1.1 % (0.0-1.0); EOS # 0.2 10^3/uL (0.0-0.5); EOS % 4.8 % (0.0-3.0); HEMOGLOBIN 11.9 g/dl (13.5-17.5); LYMPH # 1.9 10^3/uL (1.5-5.0); MEAN CORPUSCULAR HEMOGLOBIN 33.5 pg (27.0-33.0); MEAN CORPUSCULAR VOLUME 98.6 fl (80.0-96.0); MONO # 0.5 10^3/uL (0.0-0.8); MONO % 11.4 % (2.0-8.0); NEUTROPHILS # 1.8 10^3/uL (1.5-8.5); NEUTROPHILS % 40.5 % (36.0-66.0); PLATELET COUNT, AUTOMATED 257 10^3/uL (150-450); RED BLOOD COUNT 3.55 10^6/uL (4.30-6.10); WHITE BLOOD COUNT 4.4 10^3/uL (4.0-10.0)
[2021-02-21 07:09] LABS: BLOOD UREA NITROGEN 12 MG/DL (7-18); CARBON DIOXIDE LEVEL 26 MEQ/L (21-32); CHLORIDE LEVEL 108 MEQ/L (98-107); CREATININE FOR GFR 0.71 MG/DL (0.70-1.30); GLOMERULAR FILTRATION RATE > 60.0 (>42); GLUCOSE, FASTING 124 MG/DL (70-100); POTASSIUM SERUM 3.7 MEQ/L (3.5-5.1); SODIUM LEVEL 138 MEQ/L (136-145)
[2021-02-21] MEDS: SYMBICORT 80/4.5MCG INHALER 6GM INH SCH ×2 (07:18→20:00)
[2021-02-21] MEDS: MAGIC MOUTHWASH SUSPENSION BTL SSP SCH ×3 (07:30→17:24)
[2021-02-21] MEDS: MIRALAX *UNIT DOSE* 17GM PACKET PO SCH (07:46)
[2021-02-21] MEDS: HumaLOG INSULIN (NovoLOG) PER UNIT SC SCH ×4 (07:46→20:52)
[2021-02-21] MEDS: DOCUSATE SODIUM 100MG CAPSULE PO SCH ×2 (07:47→20:48)
[2021-02-21] MEDS: ACETAMINOPHEN 325 MG TAB PO SCH ×3 (07:47→20:51)
[2021-02-21] MEDS: DICLOFENAC EPOLAMINE 1.3 % PATCH TOP SCH ×2 (07:47→20:48)
[2021-02-21] MEDS: LORATADINE 10 MG TAB PO SCH (07:48)
[2021-02-21] MEDS: SPIRONOLACTONE 25 MG TAB PO SCH (07:49)
[2021-02-21] MEDS: metFORMIN (GLUCOPHAGE) 500MG TAB PO SCH ×2 (07:49→17:15)
[2021-02-21] MEDS: FERROUS GLUCONATE 324 MG TAB PO SCH (07:49)
[2021-02-21] MEDS: ASPIRIN 81MG ENTERIC TABLET PO SCH (07:49)
[2021-02-21] MEDS: CLOPIDOGREL 75 MG TAB PO SCH (07:50)
[2021-02-21] MEDS: PANTOPRAZOLE 40MG TAB (PROTONIX) PO SCH ×2 (07:50→20:49)
[2021-02-21] MEDS: CitaloPRAM (CeleXA) 20 MG TAB PO SCH (07:50)
[2021-02-21] MEDS: FLUTICASONE PROP 0.05% NASAL SPRAY 16 GM (FLONASE) NARES SCH ×2 (07:53→20:51)
[2021-02-21] MEDS: ANALGESIC BALM CRM 3OZ TOP SCH ×3 (07:53→20:51)
[2021-02-21] MEDS: SODIUM CHLORIDE NASAL 0.65% SPRAY BTL (OCEAN) SCH ×3 (07:54→20:51)
[2021-02-21] MEDS: **NOTE PATIENT COMMENT** MISC XX SCH (08:20)
[2021-02-21] MEDS ORDERED: PILL CUTTER 1 EACH XX PRN (11:30)
[2021-02-21] MEDS: NORCO, ANEXSIA 5/325MG TABLET (HYDROcodone/ACETAMINOPHEN) PO PRN (11:55)
[2021-02-21 14:00] VITALS: BP 140/67
[2021-02-21 17:13] VITALS: BP 163/72
[2021-02-21 20:00] VITALS: BP 155/80
[2021-02-21] MEDS: LEVEMIR (INSULIN DETEMIR) 1 UNITS/0.01ML SC SCH (20:48)
[2021-02-21] MEDS: LIDOCAINE 5% (LIDODERM) PATCH TD SCH (20:48)
[2021-02-21] MEDS: SENNA 8.6 MG TAB (SENOKOT) PO SCH (20:49)
[2021-02-21] MEDS: GABAPENTIN 400MG CAP PO SCH (20:49)
[2021-02-21] MEDS: LOSARTAN 50MG TABLET PO SCH (20:49)
[2021-02-21] MEDS: ROSUVASTATIN 10 MG TAB (CRESTOR) PO SCH (20:49)
[2021-02-21] MEDS: CYANOCOBALAMIN 500 MCG TAB PO SCH (20:50)
[2021-02-21] MEDS: METOPROLOL SUCC (TopROL XL) 50MG **XL** TAB PO SCH (20:50)
[2021-02-22] MEDS: **hydrALAZINE** 50 MG TAB PO SCH ×4 (05:30→23:00)
[2021-02-22] MEDS: REMEDY PHYTOPLEX Z-GUARD PASTE 113GM TUBE (FROM STOREROOM PRODUCT) TOP SCH ×4 (05:30→23:02)
[2021-02-22 06:00] VITALS: BP 156/67
[2021-02-22] MEDS: SYMBICORT 80/4.5MCG INHALER 6GM INH SCH ×2 (07:23→20:00)
[2021-02-22] MEDS: metFORMIN (GLUCOPHAGE) 500MG TAB PO SCH (08:00)
[2021-02-22] MEDS: MAGIC MOUTHWASH SUSPENSION BTL SSP SCH ×3 (08:44→18:02)
[2021-02-22] MEDS: HumaLOG INSULIN (NovoLOG) PER UNIT SC SCH ×4 (08:44→22:57)
[2021-02-22] MEDS: SODIUM CHLORIDE NASAL 0.65% SPRAY BTL (OCEAN) SCH ×3 (08:45→22:56)
[2021-02-22] MEDS: MIRALAX *UNIT DOSE* 17GM PACKET PO SCH (08:45)
[2021-02-22] MEDS: FLUTICASONE PROP 0.05% NASAL SPRAY 16 GM (FLONASE) NARES SCH ×2 (08:45→22:56)
[2021-02-22] MEDS: ANALGESIC BALM CRM 3OZ TOP SCH ×3 (08:46→22:57)
[2021-02-22] MEDS: DICLOFENAC EPOLAMINE 1.3 % PATCH TOP SCH ×2 (08:47→22:54)
[2021-02-22] MEDS: ASPIRIN 81MG ENTERIC TABLET PO SCH (08:47)
[2021-02-22] MEDS: DOCUSATE SODIUM 100MG CAPSULE PO SCH ×2 (08:47→22:52)
[2021-02-22] MEDS: **NOTE PATIENT COMMENT** MISC XX SCH (08:47)
[2021-02-22] MEDS: PANTOPRAZOLE 40MG TAB (PROTONIX) PO SCH ×2 (08:47→22:53)
[2021-02-22] MEDS: LORATADINE 10 MG TAB PO SCH (08:48)
[2021-02-22] MEDS: SPIRONOLACTONE 25 MG TAB PO SCH (08:48)
[2021-02-22] MEDS: CLOPIDOGREL 75 MG TAB PO SCH (08:48)
[2021-02-22] MEDS: CitaloPRAM (CeleXA) 20 MG TAB PO SCH (08:48)
[2021-02-22] MEDS: ACETAMINOPHEN 325 MG TAB PO SCH ×3 (08:49→22:51)
[2021-02-22] MEDS: NORCO, ANEXSIA 5/325MG TABLET (HYDROcodone/ACETAMINOPHEN) PO PRN ×2 (09:58→18:29)
[2021-02-22 14:00] VITALS: BP 150/70
[2021-02-22 20:00] VITALS: BP 118/96
[2021-02-22] MEDS: METOPROLOL SUCC (TopROL XL) 50MG **XL** TAB PO SCH (22:50)
[2021-02-22] MEDS: GABAPENTIN 400MG CAP PO SCH (22:51)
[2021-02-22] MEDS: LOSARTAN 50MG TABLET PO SCH (22:52)
[2021-02-22] MEDS: CYANOCOBALAMIN 500 MCG TAB PO SCH (22:52)
[2021-02-22] MEDS: LIDOCAINE 5% (LIDODERM) PATCH TD SCH (22:54)
[2021-02-22] MEDS: LEVEMIR (INSULIN DETEMIR) 1 UNITS/0.01ML SC SCH (22:55)
[2021-02-22] MEDS: ROSUVASTATIN 10 MG TAB (CRESTOR) PO SCH (22:59)
[2021-02-22] MEDS: SENNA 8.6 MG TAB (SENOKOT) PO SCH (23:00)
[2021-02-23 05:17] VITALS: BP 125/58
[2021-02-23] MEDS: REMEDY PHYTOPLEX Z-GUARD PASTE 113GM TUBE (FROM STOREROOM PRODUCT) TOP SCH ×4 (06:00→23:55)
[2021-02-23 06:26] LABS: BASO # 0.1 10^3/uL (0.0-0.2); EOS # 0.2 10^3/uL (0.0-0.5); EOS % 3.2 % (0.0-3.0); HEMOGLOBIN 11.4 g/dl (13.5-17.5); LYMPH # 1.8 10^3/uL (1.5-5.0); LYMPH % 36.4 % (24.0-44.0); MEAN CORPUSCULAR HEMOGLOBIN 32.9 pg (27.0-33.0); MEAN CORPUSCULAR HGB CONC 33.5 g/dl (32.0-36.5); MEAN CORPUSCULAR VOLUME 98.3 fl (80.0-96.0); MONO # 0.7 10^3/uL (0.0-0.8); MONO % 12.9 % (2.0-8.0); NEUTROPHILS # 2.3 10^3/uL (1.5-8.5); NEUTROPHILS % 46.3 % (36.0-66.0); PLATELET COUNT, AUTOMATED 270 10^3/uL (150-450); RED BLOOD COUNT 3.46 10^6/uL (4.30-6.10)
[2021-02-23] MEDS: **hydrALAZINE** 50 MG TAB PO SCH ×4 (06:27→23:55)
[2021-02-23 06:55] LABS: BLOOD UREA NITROGEN 13 MG/DL (7-18); CALCIUM LEVEL 8.9 MG/DL (8.8-10.2); CARBON DIOXIDE LEVEL 23 MEQ/L (21-32); CHLORIDE LEVEL 106 MEQ/L (98-107); CREATININE FOR GFR 0.76 MG/DL (0.70-1.30); GLOMERULAR FILTRATION RATE > 60.0 (>42); GLUCOSE, FASTING 124 MG/DL (70-100); SODIUM LEVEL 136 MEQ/L (136-145)
[2021-02-23] MEDS: MAGIC MOUTHWASH SUSPENSION BTL SSP SCH ×3 (07:30→16:48)
[2021-02-23] MEDS: ASPIRIN 81MG ENTERIC TABLET PO SCH (07:36)
[2021-02-23] MEDS: DICLOFENAC EPOLAMINE 1.3 % PATCH TOP SCH ×2 (07:36→20:41)
[2021-02-23] MEDS: MIRALAX *UNIT DOSE* 17GM PACKET PO SCH (07:36)
[2021-02-23] MEDS: metFORMIN (GLUCOPHAGE) 500MG TAB PO SCH (07:37)
[2021-02-23] MEDS: CitaloPRAM (CeleXA) 20 MG TAB PO SCH (07:37)
[2021-02-23] MEDS: PANTOPRAZOLE 40MG TAB (PROTONIX) PO SCH ×2 (07:37→20:40)
[2021-02-23] MEDS: CLOPIDOGREL 75 MG TAB PO SCH (07:37)
[2021-02-23] MEDS: DOCUSATE SODIUM 100MG CAPSULE PO SCH ×2 (07:37→20:38)
[2021-02-23] MEDS: SPIRONOLACTONE 25 MG TAB PO SCH (07:39)
[2021-02-23] MEDS: FERROUS GLUCONATE 324 MG TAB PO SCH (07:40)
[2021-02-23] MEDS: ACETAMINOPHEN 325 MG TAB PO SCH ×3 (07:40→20:41)
[2021-02-23] MEDS: LORATADINE 10 MG TAB PO SCH (07:40)
[2021-02-23] MEDS: HumaLOG INSULIN (NovoLOG) PER UNIT SC SCH ×4 (07:41→20:39)
[2021-02-23] MEDS: ANALGESIC BALM CRM 3OZ TOP SCH ×3 (07:41→20:42)
[2021-02-23] MEDS: FLUTICASONE PROP 0.05% NASAL SPRAY 16 GM (FLONASE) NARES SCH ×2 (07:41→20:41)
[2021-02-23] MEDS: SODIUM CHLORIDE NASAL 0.65% SPRAY BTL (OCEAN) SCH ×3 (07:42→20:41)
[2021-02-23] MEDS: **NOTE PATIENT COMMENT** MISC XX SCH (07:43)
[2021-02-23] MEDS: SYMBICORT 80/4.5MCG INHALER 6GM INH SCH ×2 (08:39→20:02)
[2021-02-23 11:44] VITALS: BP 128/60
[2021-02-23 14:00] VITALS: BP 128/61
[2021-02-23 17:03] VITALS: BP 154/67
[2021-02-23] MEDS: NORCO, ANEXSIA 5/325MG TABLET (HYDROcodone/ACETAMINOPHEN) PO PRN (17:05)
[2021-02-23 20:00] VITALS: BP 146/65
[2021-02-23] MEDS: LEVEMIR (INSULIN DETEMIR) 1 UNITS/0.01ML SC SCH (20:38)
[2021-02-23] MEDS: GABAPENTIN 400MG CAP PO SCH (20:39)
[2021-02-23] MEDS: LOSARTAN 50MG TABLET PO SCH (20:40)
[2021-02-23] MEDS: SENNA 8.6 MG TAB (SENOKOT) PO SCH (20:40)
[2021-02-23] MEDS: METOPROLOL SUCC (TopROL XL) 50MG **XL** TAB PO SCH (20:40)
[2021-02-23] MEDS: CYANOCOBALAMIN 500 MCG TAB PO SCH (20:40)
[2021-02-23] MEDS: LIDOCAINE 5% (LIDODERM) PATCH TD SCH (20:41)
[2021-02-23] MEDS: ROSUVASTATIN 10 MG TAB (CRESTOR) PO SCH (20:41)
[2021-02-24 06:00] VITALS: BP 141/58
[2021-02-24] MEDS: **hydrALAZINE** 50 MG TAB PO SCH ×3 (06:06→17:09)
[2021-02-24] MEDS: REMEDY PHYTOPLEX Z-GUARD PASTE 113GM TUBE (FROM STOREROOM PRODUCT) TOP SCH ×3 (06:07→17:12)
[2021-02-24] MEDS: SYMBICORT 80/4.5MCG INHALER 6GM INH SCH ×2 (08:40→20:29)
[2021-02-24] MEDS: HumaLOG INSULIN (NovoLOG) PER UNIT SC SCH ×4 (09:04→21:11)
[2021-02-24] MEDS: MAGIC MOUTHWASH SUSPENSION BTL SSP SCH ×3 (09:04→16:58)
[2021-02-24] MEDS: MIRALAX *UNIT DOSE* 17GM PACKET PO SCH (09:05)
[2021-02-24] MEDS: LORATADINE 10 MG TAB PO SCH (09:05)
[2021-02-24] MEDS: CitaloPRAM (CeleXA) 20 MG TAB PO SCH (09:05)
[2021-02-24] MEDS: metFORMIN (GLUCOPHAGE) 500MG TAB PO SCH (09:05)
[2021-02-24] MEDS: SPIRONOLACTONE 25 MG TAB PO SCH (09:05)
[2021-02-24] MEDS: DOCUSATE SODIUM 100MG CAPSULE PO SCH ×2 (09:05→21:10)
[2021-02-24] MEDS: ASPIRIN 81MG ENTERIC TABLET PO SCH (09:05)
[2021-02-24] MEDS: ACETAMINOPHEN 325 MG TAB PO SCH ×3 (09:06→21:09)
[2021-02-24] MEDS: CLOPIDOGREL 75 MG TAB PO SCH (09:06)
[2021-02-24] MEDS: PANTOPRAZOLE 40MG TAB (PROTONIX) PO SCH ×2 (09:06→21:05)
[2021-02-24] MEDS: DICLOFENAC EPOLAMINE 1.3 % PATCH TOP SCH ×2 (09:08→21:12)
[2021-02-24] MEDS: SODIUM CHLORIDE NASAL 0.65% SPRAY BTL (OCEAN) SCH ×3 (09:08→21:12)
[2021-02-24] MEDS: FLUTICASONE PROP 0.05% NASAL SPRAY 16 GM (FLONASE) NARES SCH ×2 (09:08→21:12)
[2021-02-24] MEDS: **NOTE PATIENT COMMENT** MISC XX SCH (09:09)
[2021-02-24] MEDS: ANALGESIC BALM CRM 3OZ TOP SCH ×3 (09:09→21:12)
[2021-02-24 14:00] VITALS: BP 156/64
[2021-02-24 20:00] VITALS: BP 142/52
[2021-02-24] MEDS: ROSUVASTATIN 10 MG TAB (CRESTOR) PO SCH (21:05)
[2021-02-24] MEDS: GABAPENTIN 400MG CAP PO SCH (21:05)
[2021-02-24] MEDS: METOPROLOL SUCC (TopROL XL) 50MG **XL** TAB PO SCH (21:09)
[2021-02-24] MEDS: LOSARTAN 50MG TABLET PO SCH (21:10)
[2021-02-24] MEDS: SENNA 8.6 MG TAB (SENOKOT) PO SCH (21:10)
[2021-02-24] MEDS: CYANOCOBALAMIN 500 MCG TAB PO SCH (21:10)
[2021-02-24] MEDS: LEVEMIR (INSULIN DETEMIR) 1 UNITS/0.01ML SC SCH (21:11)
[2021-02-24] MEDS: LIDOCAINE 5% (LIDODERM) PATCH TD SCH (21:12)
[2021-02-24] MEDS ORDERED: ASPI-161 PO (21:56)
[2021-02-24] MEDS ORDERED: LANTINJ4 SC (21:56)
[2021-02-24] MEDS ORDERED: AMLO1TAB25 PO (21:56)
[2021-02-24] MEDS ORDERED: METF-877 PO (21:56)
[2021-02-24] MEDS ORDERED: LOSA100T45 PO (21:56)
[2021-02-24] MEDS ORDERED: SPIR-10 PO (21:56)
[2021-02-24] MEDS ORDERED: CELE20TA PO (21:56)
[2021-02-24] MEDS ORDERED: GABA-282 PO (21:56)
[2021-02-24] MEDS ORDERED: SYMB80INH INH (21:56)
[2021-02-24] MEDS ORDERED: ROSU40TA4 PO (21:56)
[2021-02-24] MEDS ORDERED: HYDR50TA PO (21:56)
[2021-02-24] MEDS ORDERED: CLOP75TA2 PO (21:56)
[2021-02-24] MEDS ORDERED: LORA-674 PO (21:56)
[2021-02-25] MEDS: **hydrALAZINE** 50 MG TAB PO SCH ×2 (00:30→05:28)
[2021-02-25] MEDS: REMEDY PHYTOPLEX Z-GUARD PASTE 113GM TUBE (FROM STOREROOM PRODUCT) TOP SCH ×2 (00:31→05:29)
[2021-02-25 06:00] VITALS: BP 147/67
[2021-02-25] MEDS: SYMBICORT 80/4.5MCG INHALER 6GM INH SCH (07:36)
[2021-02-25 07:41] LABS: BASO # 0.1 10^3/uL (0.0-0.2); BASO % 1.5 % (0.0-1.0); EOS # 0.2 10^3/uL (0.0-0.5); HEMATOCRIT 33.1 % (42.0-52.0); HEMOGLOBIN 11.1 g/dl (13.5-17.5); LYMPH # 1.8 10^3/uL (1.5-5.0); LYMPH % 37.4 % (24.0-44.0); MEAN CORPUSCULAR HEMOGLOBIN 33.3 pg (27.0-33.0); MEAN CORPUSCULAR HGB CONC 33.5 g/dl (32.0-36.5); MEAN CORPUSCULAR VOLUME 99.4 fl (80.0-96.0); MONO # 0.6 10^3/uL (0.0-0.8); MONO % 13.1 % (2.0-8.0); NEUTROPHILS # 2.1 10^3/uL (1.5-8.5); NEUTROPHILS % 43.6 % (36.0-66.0); PLATELET COUNT, AUTOMATED 285 10^3/uL (150-450); RED BLOOD COUNT 3.33 10^6/uL (4.30-6.10); WHITE BLOOD COUNT 4.7 10^3/uL (4.0-10.0)
[2021-02-25 08:08] LABS: BLOOD UREA NITROGEN 12 MG/DL (7-18); CALCIUM LEVEL 8.6 MG/DL (8.8-10.2); CARBON DIOXIDE LEVEL 24 MEQ/L (21-32); CHLORIDE LEVEL 105 MEQ/L (98-107); CREATININE FOR GFR 0.79 MG/DL (0.70-1.30); GLOMERULAR FILTRATION RATE > 60.0 (>42); GLUCOSE, FASTING 121 MG/DL (70-100); POTASSIUM SERUM 4.1 MEQ/L (3.5-5.1); SODIUM LEVEL 137 MEQ/L (136-145)
[2021-02-25] MEDS: MIRALAX *UNIT DOSE* 17GM PACKET PO SCH (08:18)
[2021-02-25] MEDS: HumaLOG INSULIN (NovoLOG) PER UNIT SC SCH (08:18)
[2021-02-25] MEDS: MAGIC MOUTHWASH SUSPENSION BTL SSP SCH (08:18)
[2021-02-25] MEDS: LORATADINE 10 MG TAB PO SCH (08:19)
[2021-02-25] MEDS: FERROUS GLUCONATE 324 MG TAB PO SCH (08:19)
[2021-02-25] MEDS: ASPIRIN 81MG ENTERIC TABLET PO SCH (08:19)
[2021-02-25] MEDS: DOCUSATE SODIUM 100MG CAPSULE PO SCH (08:19)
[2021-02-25] MEDS: SPIRONOLACTONE 25 MG TAB PO SCH (08:19)
[2021-02-25] MEDS: CitaloPRAM (CeleXA) 20 MG TAB PO SCH (08:19)
[2021-02-25 08:20] VITALS: BP 147/67
[2021-02-25] MEDS: CLOPIDOGREL 75 MG TAB PO SCH (08:20)
[2021-02-25] MEDS: PANTOPRAZOLE 40MG TAB (PROTONIX) PO SCH (08:20)
[2021-02-25] MEDS: metFORMIN (GLUCOPHAGE) 500MG TAB PO SCH (08:20)
[2021-02-25] MEDS: FLUTICASONE PROP 0.05% NASAL SPRAY 16 GM (FLONASE) NARES SCH (08:21)
[2021-02-25] MEDS: DICLOFENAC EPOLAMINE 1.3 % PATCH TOP SCH (08:21)
[2021-02-25] MEDS: ANALGESIC BALM CRM 3OZ TOP SCH (08:21)
[2021-02-25] MEDS: ACETAMINOPHEN 325 MG TAB PO SCH (08:21)
[2021-02-25] MEDS: SODIUM CHLORIDE NASAL 0.65% SPRAY BTL (OCEAN) SCH (08:21)
[2021-02-25] MEDS ORDERED: CLOP75TA2 PO (11:34)
[2021-02-25] MEDS ORDERED: ASPI-551 PO (11:34)
[2021-02-25] MEDS ORDERED: ALDA25TA2 PO (11:34)
[2021-02-25] MEDS ORDERED: GABA-283 PO (11:34)
[2021-02-25] MEDS ORDERED: METO1TAB7 PO ×2 (11:34→11:38)
[2021-02-25] MEDS ORDERED: CELE20TA PO (11:34)
[2021-02-25] MEDS ORDERED: SYMB80INH INH (11:34)
[2021-02-25] MEDS ORDERED: CRES10TA PO (11:34)
[2021-02-25] MEDS ORDERED: LOSA100T45 PO (11:34)
[2021-02-25] MEDS ORDERED: CLAR10TA7 PO (11:34)
[2021-02-25] MEDS ORDERED: METF500T13 PO (11:34)
[2021-02-25] MEDS ORDERED: INSULANT SC (11:38)
[2021-02-25] MEDS ORDERED: HYDR50TA PO (11:38)
[2021-02-25] MEDS ORDERED: INSU100V3 SQ (11:39)
== END 2021-02-25 11:25 | disposition home health service (06) | DRG 57 ==
LOC: M PM&R 15:40
PROVIDERS: ADMIT Physical Medicine & Rehabilitation; ATTEND Physical Medicine & Rehabilitation
DX: I69.354 Hemiplegia and hemiparesis following cerebral infarction affecting left non-dominant side (principal); I50.32 Chronic diastolic (congestive) heart failure; I25.10 Atherosclerotic heart disease of native coronary artery without angina pectoris; F03.90 Unspecified dementia, unspecified severity, without behavioral disturbance, psychotic disturbance, mood disturbance, and anxiety; M48.061 Spinal stenosis, lumbar region without neurogenic claudication; I11.0 Hypertensive heart disease with heart failure; G20 Parkinson's disease; F41.9 Anxiety disorder, unspecified; E11.9 Type 2 diabetes mellitus without complications; F17.200 Nicotine dependence, unspecified, uncomplicated; E78.5 Hyperlipidemia, unspecified; R51.9 Headache, unspecified; M54.2 Cervicalgia; Z74.1 Need for assistance with personal care; Z74.09 Other reduced mobility; Z66 Do not resuscitate; Z95.5 Presence of coronary angioplasty implant and graft; Z79.82 Long term (current) use of aspirin; Z79.02 Long term (current) use of antithrombotics/antiplatelets; Z79.4 Long term (current) use of insulin; Z79.899 Other long term (current) drug therapy

== ENCOUNTER → 2021-09-13 | Outpatient (CLI) | payer MEDICARE, BC, OTHER ==
[~2021-09-13] MED LIST changes: +ALDA25TA2 PO; +AMLO1TAB25 PO; +ASPI-551 PO; +CLAR10TA7 PO; +CRES10TA PO; +GABA-283 PO; +HYDR50TA PO; +INSU100V3 SQ; +INSULANT SC; +METF500T13 PO; +METO1TAB7 PO
[2021-09-13 15:46] LABS: BASO # 0.1 10^3/uL (0.0-0.2); EOS # 0.3 10^3/uL (0.0-0.5); EOS % 4.7 % (0.0-3.0); HEMATOCRIT 36.3 % (42.0-52.0); LYMPH # 2.2 10^3/uL (1.5-5.0); LYMPH % 32.7 % (24.0-44.0); MEAN CORPUSCULAR HGB CONC 33.1 g/dl (32.0-36.5); MEAN CORPUSCULAR VOLUME 102.8 fl (80.0-96.0); MONO # 0.7 10^3/uL (0.0-0.8); MONO % 9.7 % (2.0-8.0); NEUTROPHILS # 3.5 10^3/uL (1.5-8.5); NEUTROPHILS % 51.6 % (36.0-66.0); PLATELET COUNT, AUTOMATED 312 10^3/uL (150-450); RED BLOOD COUNT 3.53 10^6/uL (4.30-6.10); WHITE BLOOD COUNT 6.8 10^3/uL (4.0-10.0)
[2021-09-13 18:58] LABS: ALT/SGPT 45 U/L (12-78); BILIRUBIN,TOTAL 0.5 MG/DL (0.2-1.0); BLOOD UREA NITROGEN 13 MG/DL (7-18); CALCIUM LEVEL 8.8 MG/DL (8.8-10.2); CARBON DIOXIDE LEVEL 24 MEQ/L (21-32); CHLORIDE LEVEL 101 MEQ/L (98-107); CHOLESTEROL LEVEL 85 MG/DL (<200); CHOLESTEROL RISK RATIO 3.695 (<5); CREATININE FOR GFR 0.91 MG/DL (0.70-1.30); GLOMERULAR FILTRATION RATE > 60.0 (>42); GLUCOSE, FASTING 171 MG/DL (70-100); HDL CHOLESTEROL 23 MG/DL (>40); NON-HDL-C 62 MG/DL; POTASSIUM SERUM 4.6 MEQ/L (3.5-5.1); SODIUM LEVEL 132 MEQ/L (136-145); TOTAL PROTEIN 6.7 GM/DL (6.4-8.2); TRIGLYCERIDES LEVEL 324 MG/DL (<150)
[2021-09-13 23:36] LABS: HEMOGLOBIN A1c 6.8 %
== END ==
LOC: M WUC 13:57
PROVIDERS: ATTEND Internal Medicine
DX: E11.69 Type 2 diabetes mellitus with other specified complication (principal); E78.00 Pure hypercholesterolemia, unspecified; I10 Essential (primary) hypertension; D64.9 Anemia, unspecified

== ENCOUNTER → 2021-10-04 | Outpatient (CLI) | payer MEDICARE, BC, OTHER | LOC: M ADAMS 11:07 | PROVIDERS: ATTEND Physician Assistant | DX: R60.0 Localized edema (principal) ==

== ENCOUNTER → 2022-02-07 | Outpatient (REF) | payer MEDICARE, BC, OTHER ==
[~2022-02-07] MED LIST changes: +CLOP75TA99 PO; -PLAV1TAB2 PO
[2022-02-07 16:57] LABS: HEMATOCRIT 39.4 % (42.0-52.0); HEMOGLOBIN 12.8 g/dl (13.5-17.5); MEAN CORPUSCULAR HEMOGLOBIN 33.3 pg (27.0-33.0); MEAN CORPUSCULAR HGB CONC 32.5 g/dl (32.0-36.5); MEAN CORPUSCULAR VOLUME 102.6 fl (80.0-96.0); PLATELET COUNT, AUTOMATED 312 10^3/uL (150-450); RED BLOOD COUNT 3.84 10^6/uL (4.30-6.10); WHITE BLOOD COUNT 7.1 10^3/uL (4.0-10.0)
[2022-02-07 17:22] LABS: HEMOGLOBIN A1c 5.8 % (4.0-6.0)
[2022-02-07 17:55] LABS: ALBUMIN 4.3 G/DL (3.2-5.2); ALKALINE PHOSPHATASE 43 U/L (46-116); ALT/SGPT 44 U/L (7.0-40); AST/SGOT 28 U/L (<34); BILIRUBIN,TOTAL 0.4 MG/DL (0.3-1.2); BLOOD UREA NITROGEN 15 MG/DL (9-23); CALCIUM LEVEL 9.4 MG/DL (8.3-10.6); CARBON DIOXIDE LEVEL 24 MMOL/L (20-31); CHLORIDE LEVEL 99 MMOL/L (98-107); CHOLESTEROL LEVEL 93 MG/DL (<200); CHOLESTEROL RISK RATIO 3.52 (<5); CREATININE FOR GFR 0.82 MG/DL (0.70-1.30); GLOMERULAR FILTRATION RATE > 60.0 (>42); GLUCOSE, FASTING 112 MG/DL (74-106); HDL CHOLESTEROL 26.4 MG/DL (>40); LDL CHOLESTEROL 29.6 MG/DL (<100); NON-HDL-C 67 MG/DL; POTASSIUM SERUM 4.8 MMOL/L (3.5-5.1); SODIUM LEVEL 133 MMOL/L (136-145); TOTAL PROTEIN 7.2 G/DL (5.7-8.2); TRIGLYCERIDES LEVEL 185 MG/DL (<150)
[2022-02-07 17:58] LABS: THYROID STIMULATING HORMONE 2.532 uIU/ML (0.55-4.78)
[2022-02-07 17:59] LABS: FREE T4 1.18 NG/DL (0.89-1.76)
== END ==
LOC: M SFHCADAM 11:44
PROVIDERS: ATTEND Family Medicine
DX: E11.69 Type 2 diabetes mellitus with other specified complication (principal); E78.00 Pure hypercholesterolemia, unspecified; D64.9 Anemia, unspecified; Z12.5 Encounter for screening for malignant neoplasm of prostate; F34.1 Dysthymic disorder
CPT/HCPCS: 80053; 80061; 83036; 84439; 84443; 85027; G0103

== ENCOUNTER → 2023-02-23 | Outpatient (REF) | payer MEDICARE, BC, OTHER ==
[~2023-02-23] MED LIST changes: -GABA-283 PO; +GABA-284 PO; +LORA-1041 PO; -LORA-674 PO; -LOSA100T45 PO; +LOSA100T46 PO
[2023-02-23 17:32] LABS: FOLATE 10.63 NG/ML (>5.4); THYROID STIMULATING HORMONE 2.022 uIU/ML (0.55-4.78)
[2023-02-23 17:33] LABS: FREE T4 1.05 NG/DL (0.89-1.76)
[2023-02-23 17:34] LABS: VITAMIN B12 LEVEL 1996 PG/ML (211-911)
[2023-02-23 18:01] LABS: HEMATOCRIT 36.5 % (42.0-52.0); HEMOGLOBIN 12.4 g/dl (13.5-17.5); MEAN CORPUSCULAR HEMOGLOBIN 34.3 pg (27.0-33.0); MEAN CORPUSCULAR VOLUME 101.1 fl (80.0-96.0); PLATELET COUNT, AUTOMATED 378 10^3/uL (150-450); RED BLOOD COUNT 3.61 10^6/uL (4.30-6.10); WHITE BLOOD COUNT 7.6 10^3/uL (4.0-10.0)
[2023-02-23 18:08] LABS: ALBUMIN 4.1 G/DL (3.2-5.2); ALKALINE PHOSPHATASE 45 U/L (46-116); ALT/SGPT 25 U/L (7.0-40); AST/SGOT 19 U/L (<34); BILIRUBIN,TOTAL 0.4 MG/DL (0.3-1.2); BLOOD UREA NITROGEN 11 MG/DL (9-23); CALCIUM LEVEL 9.4 MG/DL (8.3-10.6); CARBON DIOXIDE LEVEL 22 MMOL/L (20-31); CHLORIDE LEVEL 97 MMOL/L (98-107); CHOLESTEROL LEVEL 82 MG/DL (<200); CHOLESTEROL RISK RATIO 3.71 (<5); CREATININE FOR GFR 0.64 MG/DL (0.70-1.30); GLOMERULAR FILTRATION RATE > 60.0 (>42); GLUCOSE, FASTING 138 MG/DL (74-106); HDL CHOLESTEROL 22.1 MG/DL (>40); NON-HDL-C 59.9 MG/DL; POTASSIUM SERUM 4.8 MMOL/L (3.5-5.1); SODIUM LEVEL 130 MMOL/L (136-145); TOTAL PROTEIN 6.6 G/DL (5.7-8.2); TRIGLYCERIDES LEVEL 337 MG/DL (<150)
== END ==
LOC: M SFHCADAM 15:02
PROVIDERS: ATTEND Family Medicine
DX: E11.69 Type 2 diabetes mellitus with other specified complication (principal); E78.00 Pure hypercholesterolemia, unspecified; E87.1 Hypo-osmolality and hyponatremia; D64.9 Anemia, unspecified

== ENCOUNTER → 2023-08-29 | Outpatient (CLI) | payer MEDICARE, BC, OTHER ==
[~2023-08-29] MED LIST changes: -ASPI-161 PO; +ASPI-615 PO; -HYDR50TA PO; +HYDR50TA47 PO; -MIRA1POW3 PO; +MIRA33506 PO; -ROSU40TA4 PO; +ROSU40TA63 PO
[2023-08-29 19:18] LABS: HEMATOCRIT 36.2 % (42.0-52.0); HEMOGLOBIN 11.9 g/dl (13.5-17.5); MEAN CORPUSCULAR HEMOGLOBIN 34.2 pg (27.0-33.0); MEAN CORPUSCULAR HGB CONC 32.9 g/dl (32.0-36.5); PLATELET COUNT, AUTOMATED 317 10^3/uL (150-450); RED BLOOD COUNT 3.48 10^6/uL (4.30-6.10); WHITE BLOOD COUNT 6.9 10^3/uL (4.0-10.0)
[2023-08-29 19:37] LABS: TOTAL IRON BINDING CAPACITY 331 UG/DL (250-425)
[2023-08-29 19:39] LABS: ALBUMIN 4.1 G/DL (3.2-5.2); ALKALINE PHOSPHATASE 44 U/L (46-116); ALT/SGPT 17 U/L (7.0-40); AST/SGOT 9 U/L (<34); BILIRUBIN,TOTAL 0.4 MG/DL (0.3-1.2); BLOOD UREA NITROGEN 12 MG/DL (9-23); CALCIUM LEVEL 8.8 MG/DL (8.3-10.6); CARBON DIOXIDE LEVEL 26 MMOL/L (20-31); CHLORIDE LEVEL 99 MMOL/L (98-107); CHOLESTEROL LEVEL 98 MG/DL (<200); CHOLESTEROL RISK RATIO 3.98 (<5); CREATININE FOR GFR 0.68 MG/DL (0.70-1.30); GLOMERULAR FILTRATION RATE > 60.0 (>42); GLUCOSE, FASTING 171 MG/DL (74-106); HDL CHOLESTEROL 24.6 MG/DL (>40); IRON (FE) 97 UG/DL (65-175); LDL CHOLESTEROL 6.6 MG/DL (<100); NON-HDL-C 73.4 MG/DL; PERCENT SATURATION 29.3 % (19.7-50.0); POTASSIUM SERUM 4.8 MMOL/L (3.5-5.1); SODIUM LEVEL 130 MMOL/L (136-145); TOTAL PROTEIN 6.6 G/DL (5.7-8.2); TRIGLYCERIDES LEVEL 334 MG/DL (<150)
[2023-08-29 19:41] LABS: FERRITIN 29.9 NG/ML (10.5-307.3); FREE T4 1.26 NG/DL (0.89-1.76)
[2023-08-29 19:42] LABS: THYROID STIMULATING HORMONE 1.393 uIU/ML (0.55-4.78)
[2023-08-29 19:57] LABS: HEMOGLOBIN A1c 5.6 % (4.0-6.0)
== END ==
LOC: M WUC 14:41
PROVIDERS: ATTEND Family Medicine
DX: E11.69 Type 2 diabetes mellitus with other specified complication (principal); E78.00 Pure hypercholesterolemia, unspecified; D64.9 Anemia, unspecified

== ENCOUNTER → 2024-01-24 | Outpatient (REF) | payer MEDICARE, BC, OTHER ==
[~2024-01-24] MED LIST changes: +GABA-1172 PO; +GABA-1490 PO; -GABA-282 PO; -GABA600T4 PO; -ROSU40TA63 PO; +ROSU40TA81 PO
== END ==
LOC: M SFHCPLAZ 16:59
PROVIDERS: ATTEND Internal Medicine Infectious Disease
DX: R05.1 Acute cough (principal); R50.9 Fever, unspecified

== ENCOUNTER → 2024-02-07 | Outpatient (CLI) | payer MEDICARE, BC, OTHER ==
[2024-02-07 10:42] LABS: HEMATOCRIT 36.8 % (42.0-52.0); HEMOGLOBIN 12.2 g/dl (13.5-17.5); MEAN CORPUSCULAR HEMOGLOBIN 33.8 pg (27.0-33.0); MEAN CORPUSCULAR HGB CONC 33.2 g/dl (32.0-36.5); MEAN CORPUSCULAR VOLUME 101.9 fl (80.0-96.0); PLATELET COUNT, AUTOMATED 341 10^3/uL (150-450); RED BLOOD COUNT 3.61 10^6/uL (4.30-6.10); WHITE BLOOD COUNT 5.5 10^3/uL (4.0-10.0)
[2024-02-07 11:11] LABS: ALBUMIN 4.1 G/DL (3.2-5.2); ALKALINE PHOSPHATASE 43 U/L (40-129); ALT/SGPT 22 U/L (7.0-40); AST/SGOT 16 U/L (<34); BILIRUBIN,TOTAL 0.3 MG/DL (0.3-1.2); BLOOD UREA NITROGEN 15 MG/DL (9-23); CALCIUM LEVEL 9.7 MG/DL (8.3-10.6); CARBON DIOXIDE LEVEL 28 MMOL/L (20-31); CHLORIDE LEVEL 99 MMOL/L (98-107); CHOLESTEROL LEVEL 102 MG/DL (<200); CREATININE FOR GFR 0.75 MG/DL (0.70-1.30); GLOMERULAR FILTRATION RATE > 60.0 (>42); GLUCOSE, FASTING 121 MG/DL (74-106); HDL CHOLESTEROL 28.3 MG/DL (>40); LDL CHOLESTEROL 45.7 MG/DL (<100); NON-HDL-C 73.7 MG/DL; POTASSIUM SERUM 4.7 MMOL/L (3.5-5.1); SODIUM LEVEL 134 MMOL/L (136-145); TOTAL PROTEIN 7.2 G/DL (5.7-8.2); TRIGLYCERIDES LEVEL 140 MG/DL (<150)
[2024-02-07 11:12] LABS: HEMOGLOBIN A1c 6.4 % (4.0-6.0)
[2024-02-07 11:13] LABS: THYROID STIMULATING HORMONE 2.555 uIU/ML (0.55-4.78)
== END ==
LOC: M WUC 08:15
PROVIDERS: ATTEND Family Medicine
DX: E78.00 Pure hypercholesterolemia, unspecified (principal); I25.10 Atherosclerotic heart disease of native coronary artery without angina pectoris; D64.9 Anemia, unspecified; E11.69 Type 2 diabetes mellitus with other specified complication

== ENCOUNTER → 2024-02-19 | Outpatient (CLI) | payer MEDICARE, OTHER | LOC: M WHC 18:05 | PROVIDERS: ATTEND Family Medicine | DX: I73.9 Peripheral vascular disease, unspecified (principal); Z53.9 Procedure and treatment not carried out, unspecified reason ==

== ENCOUNTER → 2024-05-22 | Outpatient (CLI) | payer MEDICARE, OTHER | LOC: M RAD 12:51 | PROVIDERS: ATTEND Family Medicine | DX: I73.9 Peripheral vascular disease, unspecified (principal) ==

== ENCOUNTER 2024-06-19 01:03 | Inpatient (IN) | payer MEDICARE, OTHER ==
[~2024-06-19] VITALS: Ht 172.7 cm; Wt 81.8 kg
[2024-06-19 01:54] LABS: VENOUS BASE EXCESS -3.3 (-2.0-2.0); VENOUS O2 SATURATION 94.8 % (60.0-80.0); VENOUS PARTIAL PRESSURE CO2 35.2 mmHg (38.0-50.0); VENOUS PARTIAL PRESSURE O2 78.3 mmHg (30.0-50.0); VENOUS PH 7.393 UNITS (7.330-7.430); VENOUS STANDARD HCO3 21.7 MMOL/L; VENOUS TOTAL CO2 22.1 MMOL/L (24.0-28.0)
[2024-06-19 02:12] LABS: BASO % 0.3 % (0.0-1.0); EOS % 0.1 % (0.0-3.0); HEMATOCRIT 34.7 % (42.0-52.0); HEMOGLOBIN 11.7 g/dl (13.5-17.5); LYMPH # 1.1 10^3/uL (1.5-5.0); LYMPH % 6.9 % (24.0-44.0); MEAN CORPUSCULAR HGB CONC 33.7 g/dl (32.0-36.5); MEAN CORPUSCULAR VOLUME 100.9 fl (80.0-96.0); MONO # 1.1 10^3/uL (0.0-0.8); MONO % 7.2 % (2.0-8.0); NEUTROPHILS # 13.4 10^3/uL (1.5-8.5); NEUTROPHILS % 84.9 % (36.0-66.0); PLATELET COUNT, AUTOMATED 262 10^3/uL (150-450); RED BLOOD COUNT 3.44 10^6/uL (4.30-6.10); WHITE BLOOD COUNT 15.7 10^3/uL (4.0-10.0)
[2024-06-19 02:27] LABS: BILIRUBIN,DIRECT 0.2 MG/DL (<0.4); BILIRUBIN,TOTAL 0.6 MG/DL (0.3-1.2); CALCIUM LEVEL 8.8 MG/DL (8.3-10.6); CK-MB VALUE MASS 1.4 NG/ML (<3.6); CREATININE FOR GFR 0.88 MG/DL (0.70-1.30); GLOMERULAR FILTRATION RATE 86.9 (>35); MB/CK RELATIVE INDEX 1.5 (< OR =4); POTASSIUM SERUM 4.8 MMOL/L (3.5-5.1); TOTAL PROTEIN 6.8 G/DL (5.7-8.2)
[2024-06-19] MEDS: NS (Normal Saline) 0.9% 1,000 ML IV ONE (02:55)
[2024-06-19] MEDS: IPRATROPIUM 0.5MG/ALBUTEROL 2.5MG INH SOL UD 3ML NEB ONE (02:58)
[2024-06-19] MEDS ORDERED: ISOVUE-370 76% 100ML VIAL As Ordered ONE (03:18)
[2024-06-19 03:40] LABS: CK-MB VALUE MASS 1.8 NG/ML (<3.6)
[2024-06-19 03:41] LABS: MB/CK RELATIVE INDEX 1.91 (< OR =4)
[2024-06-19] MEDS: NORCO, ANEXSIA 5/325MG TABLET (HYDROcodone/ACETAMINOPHEN) PO ONE (05:24)
[2024-06-19] MEDS ORDERED: MOM 30ML SUSPENSION UDC PO PRN (06:00)
[2024-06-19] MEDS ORDERED: ACETAMINOPHEN 325 MG TAB PO PRN (06:00)
[2024-06-19] MEDS ORDERED: MAALOX 30 ML SUSP *UDC PO PRN (06:00)
[2024-06-19] MEDS ORDERED: MIRA3350 PO (06:35)
[2024-06-19] MEDS ORDERED: ASPI81TA26 PO (06:35)
[2024-06-19] MEDS ORDERED: GABA-1490 PO (06:36)
[2024-06-19] MEDS ORDERED: OMEG-28 PO (06:36)
[2024-06-19] MEDS ORDERED: MAGN400T2 PO (06:36)
[2024-06-19] MEDS ORDERED: SPIR-10 PO (06:36)
[2024-06-19] MEDS ORDERED: B-12100021 PO (06:36)
[2024-06-19] MEDS ORDERED: CHOL50TA8 PO (06:36)
[2024-06-19] MEDS ORDERED: SUPETAB44 PO (06:36)
[2024-06-19] MEDS ORDERED: FLON1SPR NARES (06:36)
[2024-06-19] MEDS ORDERED: HYDR-3713 PO (06:36)
[2024-06-19] MEDS ORDERED: PANT40TA29 PO (06:36)
[2024-06-19] MEDS ORDERED: ROSU20TA86 PO (06:36)
[2024-06-19] MEDS ORDERED: AMLO10TA PO (06:36)
[2024-06-19] MEDS ORDERED: METF-839 PO (06:36)
[2024-06-19] MEDS ORDERED: LANTINJ4 SC (06:36)
[2024-06-19] MEDS ORDERED: SYMB16INH INH (06:36)
[2024-06-19] MEDS ORDERED: HOME MED LIST COMPLETE! XX SCH (06:40)
[2024-06-19] MEDS: FUROSEMIDE 40MG/4ML VIAL IV ONE (06:54)
[2024-06-19] MEDS: DOXYCYCLINE HYCLATE 100MG TABLET PO SCH (06:55)
[2024-06-19] MEDS: cefTRIAXone SOD 1 GM in DEXTROSE 5% (D5W) ADV/MINI-BAG 50 ML IV SCH (06:56)
[2024-06-19] MEDS ORDERED: IPRATROPIUM 0.5MG/ALBUTEROL 2.5MG INH SOL UD 3ML NEB PRN (07:10)
[2024-06-19] MEDS ORDERED: GLUCAGON INJ 1MG VIAL SC PRN (07:30)
[2024-06-19] MEDS ORDERED: DEXTROSE 50% 50ML SYRINGE IV PRN (07:30)
[2024-06-19] MEDS ORDERED: GLUCOSE 4 GM CHEW PO PRN (07:30)
[2024-06-19] MEDS: FLUTICASONE PROP 0.05% NASAL SPRAY 16 GM (FLONASE) NARES ONE (08:00)
[2024-06-19] MEDS: ALBUTEROL 90 MCG/ACT 8GM HFA INHALER INH SCH (08:00)
[2024-06-19] MEDS: IPRATROPIUM 0.5MG/ALBUTEROL 2.5MG INH SOL UD 3ML NEB SCH (08:14)
[2024-06-19] MEDS: FLUTICASONE PROP 0.05% NASAL SPRAY 16 GM (FLONASE) NARES SCH (09:00)
[2024-06-19] MEDS: INSULIN LISPRO (NovoLOG) PER UNIT SC SCH (09:10)
[2024-06-19] MEDS: methylPREDNISolone 125MG 2ML VIAL IV ONE (09:11)
[2024-06-19] MEDS: PANTOPRAZOLE 40MG VIAL IV SCH (09:11)
[2024-06-19] MEDS: HEPARIN SOD (PORCINE) 5000UNITS/ML 1ML VIAL/SYRINGE SC SCH (09:13)
[2024-06-19] MEDS: MONTELUKAST 10 MG TAB PO ONE (09:14)
[2024-06-19] MEDS: ASPIRIN 81MG ENTERIC TABLET PO SCH (09:14)
[2024-06-19] MEDS: LORATADINE 10 MG TAB PO SCH (09:15)
[2024-06-19] MEDS: CitaloPRAM (CeleXA) 20 MG TAB PO SCH (09:15)
[2024-06-19] MEDS: SPIRONOLACTONE 25 MG TAB PO SCH (09:16)
[2024-06-19] MEDS: CETIRIZINE (ZyrTEC) 10 MG TAB PO ONE (09:16)
[2024-06-19] MEDS: DOCUSATE SODIUM 100MG CAPSULE PO SCH (09:16)
[2024-06-19] MEDS: MIRALAX *UNIT DOSE* 17GM PACKET PO SCH (09:17)
[2024-06-19] MEDS: guaiFENesin ER TABLET 600 MG TAB PO ONE (09:17)
[2024-06-19] MEDS ORDERED: IPRATROPIUM 0.5MG/2.5ML (0.02%) SOLN NEB INH PRN (11:55)
[2024-06-19] MEDS ORDERED: LEVALBUTEROL 1.25 MG 0.5ML CONCENTRATE NEB INH PRN (11:55)
[2024-06-19] MEDS: LEVALBUTEROL 1.25 MG 0.5ML CONCENTRATE NEB INH SCH (13:36)
[2024-06-19] MEDS: IPRATROPIUM 0.5MG/2.5ML (0.02%) SOLN NEB INH SCH (13:36)
[2024-06-19 15:40] VITALS: BP 113/62; TEMP 98.8; O2SAT 94
[2024-06-19 15:54] LABS: PROCALCITONIN 0.12 ng/ml
[2024-06-19] MEDS: methylPREDNISolone 40MG 1ML VIAL IV SCH (17:37)
[2024-06-19 20:17] VITALS: BP 116/79; TEMP 98.4; O2SAT 96
[2024-06-19] MEDS: LOSARTAN 50MG TABLET PO SCH (20:39)
[2024-06-19] MEDS: ROSUVASTATIN 10 MG TAB (CRESTOR) PO SCH (20:39)
[2024-06-19] MEDS: MAGNESIUM OXIDE 400MG TAB (MAG-OX) PO SCH (20:39)
[2024-06-19] MEDS: AZITHROMYCIN 250MG TABLET PO SCH (20:40)
[2024-06-19] MEDS: GABAPENTIN 300 MG CAP PO SCH (20:40)
[2024-06-19] MEDS ORDERED: INSULIN LISPRO (NovoLOG) PER UNIT SC SCH (21:55)
[2024-06-20] MEDS: INSULIN LISPRO (NovoLOG) PER UNIT SC SCH ×2 (01:47→08:31)
[2024-06-20 03:55] VITALS: BP 119/72; TEMP 98.8; O2SAT 95
[2024-06-20 06:20] LABS: HEMATOCRIT 31.8 % (42.0-52.0); HEMOGLOBIN 10.7 g/dl (13.5-17.5); MEAN CORPUSCULAR HGB CONC 33.6 g/dl (32.0-36.5); PLATELET COUNT, AUTOMATED 280 10^3/uL (150-450); RED BLOOD COUNT 3.15 10^6/uL (4.30-6.10); WHITE BLOOD COUNT 12.3 10^3/uL (4.0-10.0)
[2024-06-20 06:45] LABS: ALBUMIN 3.5 G/DL (3.2-5.2); ALKALINE PHOSPHATASE 42 U/L (40-129); ALT/SGPT 16 U/L (7.0-40); AST/SGOT 38 U/L (<34); BILIRUBIN,TOTAL 0.3 MG/DL (0.3-1.2); BLOOD UREA NITROGEN 28 MG/DL (9-23); CALCIUM LEVEL 8.8 MG/DL (8.3-10.6); CARBON DIOXIDE LEVEL 23 MMOL/L (20-31); CHLORIDE LEVEL 97 MMOL/L (98-107); CREATININE FOR GFR 0.69 MG/DL (0.70-1.30); GLOMERULAR FILTRATION RATE > 90.0 (>35); GLUCOSE, FASTING 240 MG/DL (74-106); POTASSIUM SERUM 4.3 MMOL/L (3.5-5.1); SODIUM LEVEL 131 MMOL/L (136-145); TOTAL PROTEIN 6.5 G/DL (5.7-8.2)
[2024-06-20] MEDS ORDERED: INSULIN LISPRO (NovoLOG) PER UNIT SC SCH (07:30)
[2024-06-20 08:30] VITALS: O2SAT 92
[2024-06-20] MEDS: NORCO, ANEXSIA 5/325MG TABLET (HYDROcodone/ACETAMINOPHEN) PO PRN (08:31)
[2024-06-20 08:32] VITALS: BP 125/63
[2024-06-20 12:00] VITALS: BP 126/65; TEMP 98.1; O2SAT 96
[2024-06-20] MEDS ORDERED: DOXY100T27 PO (13:01)
[2024-06-20] MEDS ORDERED: CEFD1CAP9 PO (13:01)
[2024-06-20] MEDS ORDERED: PRED10TA2 PO (13:03)
[2024-06-20 13:24] VITALS: O2SAT 92
[2024-06-21] MEDS ORDERED: predniSONE 10MG TAB PO SCH (09:00)
== END 2024-06-20 16:35 | DRG 871 ==
LOC: M ED 01:03 → M ED INP 05:59 → M MSPAV 15:34
PROVIDERS: ADMIT Student in an Organized Health Care Education/Training Program; ATTEND General Practice
DX: A41.9 Sepsis, unspecified organism (principal); J96.01 Acute respiratory failure with hypoxia; J12.3 Human metapneumovirus pneumonia; J15.9 Unspecified bacterial pneumonia; J44.1 Chronic obstructive pulmonary disease with (acute) exacerbation; E87.1 Hypo-osmolality and hyponatremia; J98.11 Atelectasis; J44.0 Chronic obstructive pulmonary disease with (acute) lower respiratory infection; I10 Essential (primary) hypertension; E78.5 Hyperlipidemia, unspecified; E03.9 Hypothyroidism, unspecified; G20.A1 Parkinson's disease without dyskinesia, without mention of fluctuations; J43.9 Emphysema, unspecified; E11.42 Type 2 diabetes mellitus with diabetic polyneuropathy; F01.50 Vascular dementia, unspecified severity, without behavioral disturbance, psychotic disturbance, mood disturbance, and anxiety; J39.8 Other specified diseases of upper respiratory tract; N40.0 Benign prostatic hyperplasia without lower urinary tract symptoms; I25.10 Atherosclerotic heart disease of native coronary artery without angina pectoris; Z66 Do not resuscitate; Z87.891 Personal history of nicotine dependence; Z79.82 Long term (current) use of aspirin; Z79.84 Long term (current) use of oral hypoglycemic drugs; Z79.899 Other long term (current) drug therapy; Z86.73 Personal history of transient ischemic attack (TIA), and cerebral infarction without residual deficits

== ENCOUNTER 2024-06-20 16:15 | Inpatient (IN) | payer MEDICARE, OTHER ==
[~2024-06-20] VITALS: Ht 172.7 cm; Wt 77.7 kg
[~2024-06-20 16:15] MED LIST changes: +AMLO-751 PO; +ASPI81TA26 PO; +B-12100021 PO; +CEFD1CAP9 PO; +CHOL50TA8 PO; +DOXY100T27 PO; +FLON1SPR NARES; +HYDR-3713 PO; +MAGN400T2 PO; +METF-839 PO; +OMEG-28 PO; +PANT40TA29 PO; +PRED10TA2 PO; +ROSU20TA86 PO; +SUPETAB44 PO; +SYMB16INH INH
[2024-06-20] MEDS ORDERED: MOM 30ML SUSPENSION UDC PO PRN (16:30)
[2024-06-20] MEDS ORDERED: BISACODYL 10MG SUPP PR PRN (16:30)
[2024-06-20] MEDS ORDERED: BISACODYL 5MG TAB PO PRN (16:30)
[2024-06-20] MEDS ORDERED: NITROGLYCERIN 0.4MG SUBL TABLET SL PRN (16:40)
[2024-06-20] MEDS ORDERED: GLUCOSE 4 GM CHEW PO PRN (16:40)
[2024-06-20] MEDS ORDERED: GLUCAGON INJ 1MG VIAL SC PRN (16:40)
[2024-06-20] MEDS ORDERED: DEXTROSE 50% 50ML SYRINGE IV PRN (16:40)
[2024-06-20 17:16] VITALS: BP 132/65; TEMP 98.4; O2SAT 92
[2024-06-20] MEDS: INSULIN LISPRO (NovoLOG) PER UNIT SC SCH ×2 (17:30→20:55)
[2024-06-20 20:08] VITALS: BP 135/65; TEMP 99.5; O2SAT 95
[2024-06-20] MEDS: SYMBICORT 160/4.5MCG INHALER 6GM INH SCH (20:49)
[2024-06-20] MEDS: DOXYCYCLINE HYCLATE 100MG TABLET PO SCH (20:53)
[2024-06-20] MEDS: ACETAMINOPHEN 650MG ER TAB (TYLENOL ARTHRITIS) PO SCH (20:53)
[2024-06-20] MEDS: CEFDINIR 300 MG CAP (OMNICEF) PO SCH (20:53)
[2024-06-20] MEDS: LOSARTAN 50MG TABLET PO SCH (20:53)
[2024-06-20] MEDS: DOCUSATE SODIUM 100MG CAPSULE PO SCH (20:53)
[2024-06-20] MEDS: GABAPENTIN 400MG CAP PO SCH (20:53)
[2024-06-20] MEDS: metFORMIN (GLUCOPHAGE) 500MG TAB PO SCH (20:54)
[2024-06-20] MEDS: MAGNESIUM OXIDE 400MG TAB (MAG-OX) PO SCH (20:54)
[2024-06-20] MEDS: HEPARIN SOD (PORCINE) 5000UNITS/ML 1ML VIAL/SYRINGE SC SCH (20:55)
[2024-06-20] MEDS: ROSUVASTATIN 10 MG TAB (CRESTOR) PO SCH (21:01)
[2024-06-21] MEDS: ACETAMINOPHEN 325 MG TAB PO PRN (02:10)
[2024-06-21 04:40] VITALS: BP 115/59; TEMP 99.1; O2SAT 88
[2024-06-21 04:42] VITALS: O2SAT 90
[2024-06-21 04:45] VITALS: O2SAT 94
[2024-06-21] MEDS: IPRATROPIUM 0.5MG/ALBUTEROL 2.5MG INH SOL UD 3ML NEB STA (05:31)
[2024-06-21] MEDS: NS (Normal Saline) 0.9% 1,000 ML IV SCH (05:54)
[2024-06-21 07:01] LABS: BASO % 0.1 % (0.0-1.0); HEMATOCRIT 35.5 % (42.0-52.0); HEMOGLOBIN 11.9 g/dl (13.5-17.5); LYMPH # 1.5 10^3/uL (1.5-5.0); LYMPH % 12.8 % (24.0-44.0); MEAN CORPUSCULAR HEMOGLOBIN 33.4 pg (27.0-33.0); MEAN CORPUSCULAR HGB CONC 33.5 g/dl (32.0-36.5); MEAN CORPUSCULAR VOLUME 99.7 fl (80.0-96.0); MONO % 8.5 % (2.0-8.0); NEUTROPHILS # 9.3 10^3/uL (1.5-8.5); NEUTROPHILS % 78.1 % (36.0-66.0); PLATELET COUNT, AUTOMATED 329 10^3/uL (150-450); RED BLOOD COUNT 3.56 10^6/uL (4.30-6.10); WHITE BLOOD COUNT 11.8 10^3/uL (4.0-10.0)
[2024-06-21 07:22] LABS: ALBUMIN 3.4 G/DL (3.2-5.2); BILIRUBIN,TOTAL 0.4 MG/DL (0.3-1.2); CALCIUM LEVEL 8.9 MG/DL (8.3-10.6); CREATININE FOR GFR 0.85 MG/DL (0.70-1.30); GLOMERULAR FILTRATION RATE 87.8 (>35); POTASSIUM SERUM 3.8 MMOL/L (3.5-5.1); TOTAL PROTEIN 6.3 G/DL (5.7-8.2)
[2024-06-21] MEDS: IPRATROPIUM 0.5MG/ALBUTEROL 2.5MG INH SOL UD 3ML NEB SCH (08:14)
[2024-06-21] MEDS: FLUTICASONE PROP 0.05% NASAL SPRAY 16 GM (FLONASE) NARES SCH (09:00)
[2024-06-21] MEDS ORDERED: predniSONE 10MG TAB PO SCH (09:00)
[2024-06-21] MEDS: MIRALAX *UNIT DOSE* 17GM PACKET PO SCH (09:00)
[2024-06-21 09:30] LABS: C REACTIVE PROTEIN QUANTITATIV 1.4 MG/DL (<1.0)
[2024-06-21 09:38] LABS: ERYTHROCYTE SEDIMENTATION RATE 28 mm/hr (0-20)
[2024-06-21] MEDS: methylPREDNISolone 125MG 2ML VIAL IV ONE (10:06)
[2024-06-21] MEDS: cefTRIAXone SOD 2 GM in DEXTROSE 5% (D5W) ADV/MINI-BAG 50 ML IV SCH (10:06)
[2024-06-21] MEDS: LanTUS (INSULIN GLARGINE INJ) 1 UNITS/0.01 ML SC SCH (10:11)
[2024-06-21] MEDS: CitaloPRAM (CeleXA) 20 MG TAB PO SCH (10:12)
[2024-06-21] MEDS: ASPIRIN 81MG ENTERIC TABLET PO SCH (10:13)
[2024-06-21] MEDS: PANTOPRAZOLE 40MG TAB (PROTONIX) PO SCH (10:13)
[2024-06-21] MEDS: MULTIVITAMINS/MINERALS THERAP 1 TAB PO SCH (10:13)
[2024-06-21] MEDS: LORATADINE 10 MG TAB PO SCH (10:14)
[2024-06-21] MEDS: SPIRONOLACTONE 25 MG TAB PO SCH (10:14)
[2024-06-21 12:04] VITALS: BP 98/55; TEMP 98; O2SAT 95
[2024-06-21] MEDS: methylPREDNISolone 40MG 1ML VIAL IV SCH (14:51)
[2024-06-21 19:31] VITALS: BP 119/68; TEMP 97.7; O2SAT 93
[2024-06-22 04:15] VITALS: BP 137/71; TEMP 98.3; O2SAT 93
[2024-06-22] MEDS: predniSONE 10MG TAB PO SCH (09:55)
[2024-06-22 11:54] VITALS: BP 124/58; TEMP 98.2; O2SAT 93
[2024-06-22] MEDS: NORCO, ANEXSIA 5/325MG TABLET (HYDROcodone/ACETAMINOPHEN) PO PRN (14:45)
[2024-06-22 19:27] VITALS: BP 121/59; TEMP 97.8; O2SAT 94
[2024-06-22] MEDS: CEFDINIR 300 MG CAP (OMNICEF) PO SCH (20:46)
[2024-06-23 04:00] VITALS: BP 137/64; TEMP 97.3; O2SAT 92
[2024-06-23] MEDS: FERROUS GLUCONATE 324 MG TAB PO SCH (08:54)
[2024-06-23 12:10] VITALS: BP 116/55; TEMP 97.4; O2SAT 95
[2024-06-23] MEDS: MAALOX 30 ML SUSP *UDC PO PRN (17:46)
[2024-06-23] MEDS: FAMOTIDINE 20 MG TAB PO ONE (17:47)
[2024-06-23 19:24] VITALS: BP 134/61; TEMP 97.5; O2SAT 94
[2024-06-24 03:53] VITALS: BP 141/65; TEMP 97.4; O2SAT 93
[2024-06-24] MEDS: LanTUS (INSULIN GLARGINE INJ) 1 UNITS/0.01 ML SC SCH (07:53)
[2024-06-24] MEDS: ONDANSETRON 4MG ORAL DISINTEGRATING TAB SL PRN (11:03)
[2024-06-24 11:57] LABS: BASO % 0.1 % (0.0-1.0); EOS % 0.3 % (0.0-3.0); HEMATOCRIT 35.9 % (42.0-52.0); HEMOGLOBIN 11.7 g/dl (13.5-17.5); LYMPH # 1.6 10^3/uL (1.5-5.0); LYMPH % 11.2 % (24.0-44.0); MEAN CORPUSCULAR HEMOGLOBIN 32.7 pg (27.0-33.0); MEAN CORPUSCULAR HGB CONC 32.6 g/dl (32.0-36.5); MEAN CORPUSCULAR VOLUME 100.3 fl (80.0-96.0); MONO # 0.9 10^3/uL (0.0-0.8); MONO % 6.5 % (2.0-8.0); NEUTROPHILS # 11.2 10^3/uL (1.5-8.5); NEUTROPHILS % 80.5 % (36.0-66.0); PLATELET COUNT, AUTOMATED 356 10^3/uL (150-450); RED BLOOD COUNT 3.58 10^6/uL (4.30-6.10)
[2024-06-24 12:00] VITALS: BP 111/54; TEMP 99; O2SAT 90
[2024-06-24 12:24] LABS: CALCIUM LEVEL 8.8 MG/DL (8.3-10.6); CREATININE FOR GFR 0.82 MG/DL (0.70-1.30); GLOMERULAR FILTRATION RATE 88.8 (>35); POTASSIUM SERUM 3.8 MMOL/L (3.5-5.1)
[2024-06-24] MEDS: NYSTATIN 500,000U/5ML SUSP UDC PO SCH (12:54)
[2024-06-24 19:10] VITALS: BP 107/55; TEMP 97.6; O2SAT 98
[2024-06-25 05:35] VITALS: BP 133/66; TEMP 97.1; O2SAT 93
[2024-06-25 12:00] VITALS: BP 107/66; TEMP 97.7; O2SAT 94
[2024-06-25 20:00] VITALS: BP 123/57; TEMP 98.3; O2SAT 95
[2024-06-26 04:00] VITALS: BP 130/63; TEMP 98.1; O2SAT 91
[2024-06-26] MEDS ORDERED: PRED20TA PO (11:42)
[2024-06-26] MEDS ORDERED: ALBU8.5H INH (11:42)
[2024-06-26] MEDS ORDERED: NYST-38 PO (11:42)
[2024-06-26] MEDS ORDERED: PRED10PA PO (11:42)
[2024-06-26] MEDS ORDERED: HYDR-3713 PO (11:42)
[2024-06-26] MEDS ORDERED: AMOX875T2 PO (11:42)
[2024-06-26 11:49] VITALS: BP 130/55; TEMP 97.7; O2SAT 94
[2024-06-26 19:57] VITALS: BP 118/55; TEMP 97.5; O2SAT 95
[2024-06-27 05:40] VITALS: BP 137/61; TEMP 97.5; O2SAT 97
[2024-06-27 08:15] VITALS: BP 137/61
== END 2024-06-27 09:55 | disposition home health service (06) | DRG 56 ==
LOC: M PM&R 16:54
PROVIDERS: ADMIT Physical Medicine & Rehabilitation; ATTEND Physical Medicine & Rehabilitation
DX: G20.A1 Parkinson's disease without dyskinesia, without mention of fluctuations (principal); J12.3 Human metapneumovirus pneumonia; J15.9 Unspecified bacterial pneumonia; J44.1 Chronic obstructive pulmonary disease with (acute) exacerbation; J44.0 Chronic obstructive pulmonary disease with (acute) lower respiratory infection; E87.1 Hypo-osmolality and hyponatremia; J98.11 Atelectasis; B37.0 Candidal stomatitis; I10 Essential (primary) hypertension; E78.5 Hyperlipidemia, unspecified; E11.42 Type 2 diabetes mellitus with diabetic polyneuropathy; E03.9 Hypothyroidism, unspecified; F01.50 Vascular dementia, unspecified severity, without behavioral disturbance, psychotic disturbance, mood disturbance, and anxiety; J39.8 Other specified diseases of upper respiratory tract; I25.10 Atherosclerotic heart disease of native coronary artery without angina pectoris; N40.0 Benign prostatic hyperplasia without lower urinary tract symptoms; R29.6 Repeated falls; Z74.1 Need for assistance with personal care; Z74.09 Other reduced mobility; M54.50 Low back pain, unspecified; G89.29 Other chronic pain; K59.00 Constipation, unspecified; Z66 Do not resuscitate; I25.2 Old myocardial infarction; Z95.5 Presence of coronary angioplasty implant and graft; Z79.82 Long term (current) use of aspirin; Z79.2 Long term (current) use of antibiotics; Z79.4 Long term (current) use of insulin; Z79.84 Long term (current) use of oral hypoglycemic drugs; Z79.52 Long term (current) use of systemic steroids; Z79.899 Other long term (current) drug therapy; Z88.8 Allergy status to other drugs, medicaments and biological substances; Z86.73 Personal history of transient ischemic attack (TIA), and cerebral infarction without residual deficits; Z87.891 Personal history of nicotine dependence; E11.65 Type 2 diabetes mellitus with hyperglycemia; K29.70 Gastritis, unspecified, without bleeding; T36.1X5A Adverse effect of cephalosporins and other beta-lactam antibiotics, initial encounter; T36.4X5A Adverse effect of tetracyclines, initial encounter; R63.0 Anorexia

== ENCOUNTER → 2024-12-26 | Outpatient (REF) | payer MEDICARE, OTHER ==
[~2024-12-26] MED LIST changes: +ALBU8.5H INH; +AMOX875T2 PO; +NYST-38 PO; +PRED10PA PO; +PRED20TA PO
[2024-12-26 17:46] LABS: ALT/SGPT 18 U/L (7.0-40); AST/SGOT 16 U/L (<34); CALCIUM LEVEL 9.1 MG/DL (8.3-10.6); CARBON DIOXIDE LEVEL 26 MMOL/L (20-31); CHLORIDE LEVEL 99 MMOL/L (98-107); CHOLESTEROL LEVEL 104 MG/DL (<200); CHOLESTEROL RISK RATIO 3.33 (<5); CREATININE FOR GFR 0.66 MG/DL (0.70-1.30); GLOMERULAR FILTRATION RATE > 90.0 (>35); LDL CHOLESTEROL 40.0 MG/DL (<100); NON-HDL-C 72.8 MG/DL; POTASSIUM SERUM 4.9 MMOL/L (3.5-5.1); SODIUM LEVEL 135 MMOL/L (136-145); TRIGLYCERIDES LEVEL 164 MG/DL (<150)
[2024-12-26 17:50] LABS: FREE T4 1.15 NG/DL (0.89-1.76)
[2024-12-26 18:01] LABS: PLATELET COUNT, AUTOMATED 300 10^3/uL (150-450)
[2024-12-26 18:36] LABS: ESTIMATED AVERAGE GLUCOSE 137.0 MG/DL (60-110)
== END ==
LOC: M SFHCADAM 13:01
PROVIDERS: ATTEND Family Medicine
DX: E78.00 Pure hypercholesterolemia, unspecified (principal); I25.10 Atherosclerotic heart disease of native coronary artery without angina pectoris; E11.69 Type 2 diabetes mellitus with other specified complication; E87.1 Hypo-osmolality and hyponatremia